=== PATIENT | male | born 1980 | race American Indian/Alaskan Native ===

== ENCOUNTER 2017-06-08 07:42 | Inpatient (IN) | payer BC ==
[2017-06-08] MEDS ORDERED: Sodium Chloride 0.9% 1,000 ML IV SCH (08:15)
--- NOTE | 2017-06-08 08:17 | ED PDOC ---
Arrival/HPI - General Chief Complaint: Abdominal Pain Time Seen by Provider: 06/08/17 07:44 Historian: Patient - History of Present Illness Narrative History of Present Illness (Text): 06/08/17 08:14 A 36 year old male, who denies any significant past medical history, presents to the emergency department for left lower quadrant pain that began 4 weeks ago. The patient reports that he has been seen earlier this month at [facility] for the same pain, where they preformed a CT and diagnosed him with diverticulitis. The patient states his antibiotics only "aggravate" his pain even more. The patient visited [place] emergency department 4 days ago and yesterday, where they did not preform a repeat CT. The patient denies any dysruia, testicular swelling, bloody stools, fever, chest pain, or any other complaints at this time. Time/Duration: > week (4 weeks ) Symptom Onset: Gradual Symptom Course: Unchanged Severity Level: Mild Activities at Onset: Light Context: Home, Work Past Medical History - Provider Review Nursing Documentation Reviewed: Yes - Tetanus Immunization Tetanus Immunization: Unknown - Cardiac Hx Cardiac Disorders: No - Pulmonary Hx Respiratory Disorders: No - Neurological Hx Neurological Disorder: No - HEENT Hx HEENT Disorder: No - Renal Hx Renal Disorder: No - Endocrine/Metabolic Hx Endocrine Disorders: No - Hematological/Oncological Hx Blood Disorders: No - Integumentary Hx Dermatological Disorder: No - Musculoskeletal/Rheumatological Hx Musculoskeletal Disorders: No - Gastrointestinal Hx Diverticulitis: Yes - Genitourinary/Gynecological Hx Genitourinary Disorders: No - Psychiatric Hx Psychophysiologic Disorder: No Hx Substance Use: No Family/Social History - Physician Review Nursing Documentation Reviewed: Yes Family/Social History: No Known Family HX Smoking Status: Light Smoker < 10 Cigarettes Daily Hx Alcohol Use: No Hx Substance Use: No Allergies/Home Meds Allergies/Adverse Reactions: Allergies No Known Allergies Allergy (Verified 06/08/17 16:51) Review of Systems - Review of Systems Constitutional: absent: Fatigue, Fevers Respiratory: absent: SOB Cardiovascular: absent: Chest Pain Gastrointestinal: Abdominal Pain (left lower quadrant pain ). absent: Hematochezia, Hematemesis Genitourinary Male: absent: Dysuria, Hematuria Musculoskeletal: absent: Back Pain Skin: absent: Rash Neurological: absent: Headache, Dizziness Endocrine: absent: Polyuria Hemo/Lymphatic: absent: Easy Bleeding Psychiatric: absent: Suicidal Ideation Physical Exam - Physical Exam Narrative Physical Exam (Text): 06/08/17 08:10 Head: Atraumatic. Normocephalic. Eyes: PERRL. EOMI. Conjunctivae are not pale. ENT: Mucous membranes are moist and intact. Oropharynx is clear and symmetric. Neck: Supple. Full ROM. No JVD. No lymphadenopathy. Cardiovascular: Regular rate. Regular rhythm. No murmurs, rubs, or gallops. Distal pulses are 2+ and symmetric. Pulmonary/Chest: No evidence of respiratory distress. Clear to auscultation bilaterally. No wheezing, rales or rhonchi. Abdominal: Focal left lower quadrant pain. Soft and non-distended. No rebound , guarding, or rigidity. No organomegaly. Good bowel sounds. Back: No CVA tenderness. Rectal: no gross bleeding Extremities: No edema. No cyanosis. No clubbing. Full range of motion in all extremities. No calf tenderness. Skin: Skin is warm and dry. No petechiae. No purpura. Neurological: Alert, awake, and oriented to person, place, time, and situation. Normal speech. Psychiatric: Good eye contact. Normal interaction, affect, and behavior. Vital Signs Reviewed: Yes Vital Signs Temp Pulse Resp BP Pulse Ox 06/08/17 13:00 70 17 125/78 100 06/08/17 11:20 68 18 130/84 99 06/08/17 09:25 75 18 126/82 97 06/08/17 07:57 99.2 F 77 18 128/73 96 Temperature: Afebrile Blood Pressure: Normal Pulse: Regular Respiratory Rate: Normal Appearance: Positive for: Well-Appearing, Non-Toxic, Comfortable Pain Distress: None Mental Status: Positive for: Alert and Oriented X 3 Medical Decision Making ED Course and Treatment: 06/08/17 08:17 Impression: A 36 year old male with left lower abdominal pain. Differential Diagnosis included but are not limited to: Diverticulitis vs abscess vs. colitis Plan: -- Abd & Pel CT -- Labs -- IV Fluids -- Reassess and disposition Progress Notes: Patient with persistent pain with recent diagnosis of diverticulitis at outside facility. 06/08/2017 10:22 Abd/Pelvis CT IMPRESSION: Findings consistent with sigmoid acute diverticulitis. Extraluminal small droplet of air and small amount of fluid seen adjacent to the sigmoid associated with moderate inflammatory changes and mesenteric stranding. No evidence of discrete abscess formation in this exam. Descending colon and sigmoid diverticulosis. Mild hepatomegaly with findings suggestive of mild to moderate hepatic steatosis. Well defined low-attenuation lesion at the midpole right kidney measures fluid density may represent renal cyst. Dictator: Olman Lowry MD Patient on re-evaluation with persistent pain, no rebound or guarding however, not toxic appearing or septic. Due to failure of outpatient treatment, patient ordered iv antibiotics, admitted for further evaluation. - Lab Interpretations Lab Results: 06/08/17 08:30 06/08/17 08:30 Lab Results 06/08/17 08:30: Sodium 141, Potassium 3.6, Chloride 106, Carbon Dioxide 28, Anion Gap 11, BUN 11, Creatinine 1.0, Est GFR ( Amer) > 60, Est GFR (Non- Af Amer) > 60, Random Glucose 99, Calcium 8.5, Total Bilirubin 0.4, AST 26, ALT 31, Alkaline Phosphatase 49, Total Protein 6.7, Albumin 3.6, Globulin 3.1, Albumin/Globulin Ratio 1.1 06/08/17 08:30: WBC 4.4 L, RBC 5.12, Hgb 14.1, Hct 42.7, MCV 83.4, MCH 27.5, MCHC 33.0, RDW 14.1, Plt Count 253, MPV 9.5, Gran % 65.3, Lymph % (Auto) 24.7, [place] % (Auto) 8.4 H, Eos % (Auto) 1.4 L, Baso % (Auto) 0.2, Gran # 2.86, Lymph # 1.1 L, [place] # 0.4, Eos # 0.1, Baso # 0.01 - RAD Interpretation Radiology Orders: 06/08/17 08:10 ABD & PELVIS IV CONTRAST ONLY [CT] Stat - Medication Orders Current Medication Orders: Discontinued Medications Acetaminophen (Tylenol 325mg Tab) 650 mg PO Q4H PRN PRN Reason: Pain, moderate (4-7) Sodium Chloride (Sodium Chloride 0.9%) 1,000 mls @ 100 mls/hr IV .Q10H HELENA Last Admin: 06/08/17 08:35 Dose: 100 mls/hr eMAR Start Stop Document 06/08/17 08:35 MS (Rec: 06/08/17 09:00 MS [id number]) Intravenous Solution Start Date 06/08/17 Start Time 08:35 End Date 06/08/17 Metronidazole (Flagyl) 500 mg in 100 mls @ 100 mls/hr IVPB STAT STA PRN Reason: Protocol Stop: 06/08/17 12:32 Last Admin: 06/08/17 14:55 Dose: 100 mls/hr eMAR Start Stop Document 06/08/17 14:55 SF (Rec: 06/08/17 15:06 SF [id number]) Intravenous Solution Start Date 06/08/17 Start Time 14:55 End Date 06/08/17 End time 15:55 Total Infusion Time 60 Ceftriaxone Sodium (Rocephin 1 Gram Ivpb) 1 gm in 100 mls @ 200 mls/hr IVPB ONCE STA PRN Reason: Protocol Stop: 06/08/17 12:04 Last Admin: 06/08/17 13:45 Dose: 200 mls/hr eMAR Start Stop Document 06/08/17 13:45 SF (Rec: 06/08/17 15:05 SF [id number]) Intravenous Solution Start Date 06/08/17 Start Time 13:45 End Date 06/08/17 End time 14:15 Total Infusion Time 30 Sodium Chloride (Sodium Chloride 0.45%) 1,000 mls @ 60 mls/hr IV .[id number] HELENA Last Admin: 06/08/17 14:25 Dose: 60 mls/hr eMAR Start Stop Document 06/08/17 14:25 SF (Rec: 06/08/17 15:04 SF [id number]) Intravenous Solution Start Date 06/08/17 Start Time 14:25 End Date 06/08/17 Piperacillin Sod/Tazobactam Sod (Zosyn 3.375 In Ns 100ml) 100 mls @ 200 mls/hr IVPB Q6 HELENA PRN Reason: Protocol Stop: 06/17/17 13:50 Last Admin: 06/10/17 06:41 Dose: 200 mls/hr eMAR Start Stop Document 06/10/17 06:41 BR (Rec: 06/10/17 06:42 BR [id number]) Intravenous Solution Start Date 06/10/17 Start Time 06:41 End Date 06/10/17 End time 07:11 Total Infusion Time 30 Ketorolac Tromethamine (Toradol) 30 mg IVP Q6H PRN PRN Reason: Pain, moderate (4-7) Last Admin: 06/08/17 16:46 Dose: 30 mg [facility] Pain Assessment Document 06/08/17 16:46 EP (Rec: 06/08/17 16:46 EP [id number]) Pain Reassessment Is this a pain reassessment? No Sleep Is patient sleeping during reassessment? No Presence of Pain Presence of Pain Yes Pain Scale Used Pain Scale Used Numeric Location Pain Location Body Site Abdomen Description Description Intermittent Intensity of Pain at present 4 Pain Behavior Restlessness Aggravating Factors ADL's IVP Administration Document 06/08/17 16:46 EP (Rec: 06/08/17 16:46 EP [id number]) Charges for Administration # of IVP Administrations 1 Re-Assess: MALCOM Pain Assessment Document 06/08/17 17:46 EP (Rec: 06/08/17 18:45 EP [id number]) Pain Reassessment Is this a pain reassessment? Yes Sleep Is patient sleeping during reassessment? No Presence of Pain Presence of Pain No Pneumococcal Polyvalent Vaccine (Pneumovax 23 Vaccine) 0.5 ml IM .ONCE ONE Stop: 06/08/17 17:26 Polyethylene Glycol (Miralax) 17 gm PO BID HELENA Last Admin: 06/09/17 12:56 Dose: 17 gm - Scribe Statement The provider has reviewed the documentation as recorded by the Olayinka Garcia Provider Scribe Attestation: All medical record entries made by the Olayinka were at my direction and personally dictated by me. I have reviewed the chart and agree that the record accurately reflects my personal performance of the history, physical exam, medical decision making, and the department course for this patient. I have also personally directed, reviewed, and agree with the discharge instructions and disposition. Disposition/Present on Arrival - Present on Arrival Any Indicators Present on Arrival: No History of DVT/PE: No History of Uncontrolled Diabetes: No Urinary Catheter: No History of Decub. Ulcer: No History Surgical Site Infection Following: None - Disposition Have Diagnosis and Disposition been Completed?: Yes Diagnosis: Diverticulitis Disposition: HOSPITALIZED Disposition Time: 11:30 Patient Plan: Admission Condition: FAIR
[2017-06-08 08:41] LABS: BASO # 0.01 K/mm3 (0.0-2.0); BASO % 0.2 % (0.0-3.0); EOS # 0.1 (0.0-0.7); EOS % 1.4 % (1.5-5.0); GRAN # 2.86 (1.4-6.5); GRAN % 65.3 % (50.0-68.0); HEMATOCRIT 42.7 % (42.0-52.0); LYMPH # 1.1 (1.2-3.4); LYMPH % 24.7 % (22.0-35.0); MEAN CELL VOLUME 83.4 fl (80.0-105.0); MEAN CORPUSCULAR HEMOGLOBIN 27.5 pg (25.0-35.0); MEAN PLATELET VOLUME 9.5 fl (7.0-11.0); MONO # 0.4 (0.1-0.6); MONO % 8.4 % (1.0-6.0); RED CELL DISTRIBUTION WIDTH 14.1 % (11.5-14.5); WHITE BLOOD COUNT 4.4 10^3/ul (4.5-11.0)
[2017-06-08 08:51] LABS: ALB/GLOB RATIO 1.1 (1.1-1.8); ALKALINE PHOSPHATASE 49 U/L (38-126); ALT/SGPT 31 U/L (7-56); AST/SGOT 26 U/L (17-59); BILIRUBIN,TOTAL 0.4 mg/dL (0.2-1.3); BLOOD UREA NITROGEN 11 mg/dL (7-21); CALCIUM 8.5 mg/dL (8.4-10.5); CARBON DIOXIDE 28 mmol/L (21-33); CHLORIDE 106 mmol/L (98-107); GFR AFRICAN-AMERICAN > 60; GLUCOSE,RANDOM 99 mg/dL (70-110); POTASSIUM 3.6 mmol/L (3.6-5.0); SODIUM 141 mmol/L (132-148); TOTAL PROTEIN 6.7 g/dL (5.8-8.3)
--- NOTE | 2017-06-08 10:24 | CT ---
PROCEDURE: CT Abdomen and Pelvis with contrast HISTORY: llq hx of diverticulitis COMPARISON: None. TECHNIQUE: Contrast dose: 150 mL Omnipaque 350. Axial and reformatted coronal and sagittal CT images of the abdomen and pelvis were obtained after IV contrast administration. Radiation dose: Total exam DLP = 1253.74 mGy-cm. This CT exam was performed using one or more of the following dose reduction techniques: Automated exposure control, adjustment of the mA and/or kV according to patient size, and/or use of iterative reconstruction technique. FINDINGS: LOWER THORAX: No evidence of acute pathology at the lung bases. LIVER: Heterogeneous enhancement of the liver which demonstrate mild patchy decreased attenuation suggestive but nonspecific for hepatic steatosis. The liver is mildly enlarged. The portal vein is patent. GALLBLADDER AND BILE DUCTS: Unremarkable. PANCREAS: Unremarkable. No gross lesion or ductal dilatation. SPLEEN: Unremarkable. ADRENALS: Unremarkable. No mass. KIDNEYS AND URETERS: The kidneys enhance symmetrically without evidence of hydronephrosis. There is with defined low-attenuation lesion at the midpole right kidney measures 1.9 centimeter in the transverse diameter and measures fluid density( 17 Hounsfield unit) VASCULATURE: Unremarkable. No aortic aneurysm. BOWEL: There is diffuse sigmoid colon wall thickening. There are scattered sigmoid and distal descending colon diverticulosis. There are inflammatory changes and extraluminal fluid and small punctate of air adjacent to the sigmoid colon in the left pelvis consistent with acute diverticulitis. No discrete abscess formation noted. There are adjacent inflammatory changes and fat stranding in the left lower abdomen and left pelvis. There is no evidence of bowel obstruction. APPENDIX: Normal appendix. PERITONEUM: Unremarkable. No free fluid. No free air. LYMPH NODES: Unremarkable. No enlarged lymph nodes. BLADDER: Unremarkable. REPRODUCTIVE: Unremarkable. BONES: No acute fracture. OTHER FINDINGS: None. IMPRESSION: Findings consistent with sigmoid acute diverticulitis. Extraluminal small droplet of air and small amount of fluid seen adjacent to the sigmoid associated with moderate inflammatory changes and mesenteric stranding. No evidence of discrete abscess formation in this exam. Descending colon and sigmoid diverticulosis. Mild hepatomegaly with findings suggestive of mild to moderate hepatic steatosis. Well defined low-attenuation lesion at the midpole right kidney measures fluid density may represent renal cyst.
[2017-06-08] MEDS ORDERED: cefTRIAXone 1 gm 100 ML IVPB STA (11:33)
[2017-06-08] MEDS ORDERED: metroNIDAZOLE IV 500 mg/100 ml 500 MG/100 ML BAG IVPB STA (11:33)
[2017-06-08] MEDS ORDERED: cefTRIAXone 1 gm 1 GM/100 ML BAG IVPB STA (11:35)
[2017-06-08] MEDS ORDERED: Sodium Chloride 0.45% 1,000 ML IV SCH (12:00)
[2017-06-08] MEDS ORDERED: metroNIDAZOLE IV 500 mg/100 ml 500 MG/100 ML BAG IVPB SCH (14:00)
[2017-06-08 15:25] LABS: URINE APPEARANCE CLEAR (CLEAR); URINE BILIRUBIN NEGATIVE (NEGATIVE); URINE BLOOD TRACE-INTACT (NEGATIVE); URINE COLOR YELLOW (YELLOW); URINE GLUCOSE (UA) NEGATIVE (NEGATIVE); URINE KETONE NEGATIVE (NEGATIVE); URINE LEUKOCYTE ESTERASE NEGATIVE Leu/uL (NEGATIVE); URINE PROTEIN NEGATIVE mg/dL (<30 mg/dL); URINE UROBILINOGEN 0.2 E.U./dL (<1 E.U./dL)
[2017-06-08 16:05] LABS: URINE AMORPHOUS SEDIMENT FEW; URINE BACTERIA LARGE (NEG); URINE WBC 0 - 2 /hpf (0-6)
[2017-06-08] MEDS: Piperacillin/Tazobact 3.375 gm 100 ML IVPB SCH ×2 (16:36→17:37)
--- NOTE | 2017-06-08 16:52 | CP.PCM.CON ---
<Dean Carreno - Last Filed: 06/08/17 16:55> History of Present Illness - History of Present Illness History of Present Illness: Initial GI Consult Samson Faust is a 36M w/ hx of chronic constipation who presents to the ER with complaints of LLQ pain. Pt states that the onset was 4 weeks ago. He initially went to [facility] and was diagnosed with diverticulitis and discharged on ciprofloxacin and Flagyl. A CT of the abdomen confirmed the diagnosis. He notes mild improvement in symptoms, but denied any resolution. He again went to [facility] 5 days ago with similar complaints. He was again was given a 2 week course of cipro and flagyl. He notes abd discomfort with the abx and stopped taking them. For the past 1 week, his constipation worsened and he then took dulcolax. He started to experience chills and diaphoresis for the past 3 days. He currently notes that his pain is around a 1 out of 10 and has intermittent radiation to his left groin. He denies any BRBPR, melena, nausea or vomiting. Denies any GERD like symptoms. A CT scan of the abd in the ER revealed acute uncomplicated diverticulitis of the sigmoid. He was started on zosyn by by ID. PMHx: None PSHx: None Social Hx: Denies smoking, +social drinker, denies any illicit drugs Family hx: denies colon cancer Endo hx: none ROS: 12 point ROS conducted, neg other than above Past Patient History - Tetanus Immunizations Tetanus Immunization: Unknown - Past Social History Smoking Status: Light Smoker < 10 Cigarettes Daily - CARDIAC Hx Cardiac Disorders: No - PULMONARY Hx Respiratory Disorders: No - NEUROLOGICAL Hx Neurological Disorder: No - HEENT Hx HEENT Problems: No - RENAL Hx Chronic Kidney Disease: No - ENDOCRINE/METABOLIC Hx Endocrine Disorders: No - HEMATOLOGICAL/ONCOLOGICAL Hx Blood Disorders: No - INTEGUMENTARY Hx Dermatological Problems: No - MUSCULOSKELETAL/RHEUMATOLOGICAL Hx Musculoskeletal Disorders: No - GASTROINTESTINAL Hx Diverticulitis: Yes - GENITOURINARY/GYNECOLOGICAL Hx Genitourinary Disorders: No - PSYCHIATRIC Hx Psychophysiologic Disorder: No Hx Substance Use: No - SURGICAL HISTORY Hx Surgeries: No Meds Allergies/Adverse Reactions: Allergies Allergy/AdvReac Type Severity Reaction Status Date / Time No Known Allergies Allergy Verified 06/08/17 16:51 - Medications Medications: Current Medications Sodium Chloride (Sodium Chloride 0.45%) 1,000 mls @ 60 mls/hr IV .[id number] [facility] Last Admin: 06/08/17 14:25 Dose: 60 mls/hr Piperacillin Sod/Tazobactam Sod (Zosyn 3.375 In Ns 100ml) 100 mls @ 200 mls/hr IVPB Q6 HELENA PRN Reason: Protocol Stop: 06/17/17 13:50 Last Admin: 06/08/17 16:36 Dose: Not Given Ketorolac Tromethamine (Toradol) 30 mg IVP Q6H PRN PRN Reason: Pain, moderate (4-7) Physical Exam - Constitutional Appears: No Acute Distress - Head Exam Head Exam: ATRAUMATIC, NORMOCEPHALIC - Eye Exam Eye Exam: Normal appearance - ENT Exam ENT Exam: Mucous Membranes Moist - Neck Exam Neck exam: Positive for: Normal Inspection - Respiratory Exam Respiratory Exam: Clear to Auscultation Bilateral, NORMAL BREATHING PATTERN. absent: Rales, Rhonchi, Wheezes, Respiratory Distress - Cardiovascular Exam Cardiovascular Exam: REGULAR RHYTHM, +S1, +S2 - GI/Abdominal Exam GI & Abdominal Exam: Normal Bowel Sounds, Soft, Tenderness. absent: Firm, Guarding, Pulsatile Mass, Rebound, Rigid Additional comments: tenderness in the LLQ - Extremities Exam Extremities exam: Negative for: joint swelling, pedal edema - Neurological Exam Neurological exam: Alert, Oriented x3 - Psychiatric Exam Psychiatric exam: Normal Affect, Normal Mood - Skin Skin Exam: Dry, Intact, Normal Color, Warm Results - Vital Signs Recent Vital Signs: Last Vital Signs Temp 99.2 F 06/08/17 07:57 Pulse 71 06/08/17 15:16 Resp 18 06/08/17 15:16 BP 133/89 06/08/17 15:16 Pulse Ox 99 06/08/17 15:16 - Labs Result Diagrams: 06/08/17 08:30 06/08/17 08:30 Labs: Laboratory Results - last 24 hr 06/08/17 15:10 Urine Color Yellow Urine Appearance Clear Urine pH 6.0 Ur Specific [place] 1.025 Urine Protein Negative Urine Glucose (UA) Negative Urine Ketones Negative Urine Blood Trace-intact H Urine Nitrate Negative Urine Bilirubin Negative Urine Urobilinogen 0.2 Ur Leukocyte Esterase Negative Urine RBC 1 - 3 Urine WBC 0 - 2 Ur Epithelial Cells None Amorphous Sediment Few Urine Bacteria Large Assessment & Plan - Assessment and Plan (Free Text) Assessment: Samson Faust is a 36M w/ no sig medical hx who presents with LLQ. Etiology is likely 2/2 Acute sigmoid diverticulitis 1. Uncomplicated Sigmoid Diverticulitis 2. Chronic constipation Plan: -continue abx as per ID -recommend a 2 week PO abx outpt course upon discharge -recommend a colonoscopy 8 weeks post symptoms -pt wishes to follow-up with Dr. Akins, recommend outpt followup in 2 weeks -started on liquid diet, can advance as tolerted to goal of low residue diet -if still complaining of constipation, can start miralax -recommend increasing fiber intake at home, post diverticulitis flare -can supplement with benefiber -if constipation persist, can start miralax at home daily to TID for 1-2 BM daily D/W Dr. Akins <Edmar Akins - Last Filed: 06/08/17 20:47> Meds - Medications Medications: Current Medications Acetaminophen (Tylenol 325mg Tab) 650 mg PO Q4H PRN PRN Reason: Pain, moderate (4-7) Sodium Chloride (Sodium Chloride 0.45%) 1,000 mls @ 60 mls/hr IV .[id number] HELENA Last Admin: 06/08/17 14:25 Dose: 60 mls/hr Piperacillin Sod/Tazobactam Sod (Zosyn 3.375 In Ns 100ml) 100 mls @ 200 mls/hr IVPB Q6 HELENA PRN Reason: Protocol Stop: 06/17/17 13:50 Last Admin: 06/08/17 17:37 Dose: 200 mls/hr Ketorolac Tromethamine (Toradol) 30 mg IVP Q6H PRN PRN Reason: Pain, moderate (4-7) Last Admin: 06/08/17 16:46 Dose: 30 mg Results - Vital Signs Recent Vital Signs: Last Vital Signs Temp 99.2 F 06/08/17 16:51 Pulse 71 06/08/17 16:51 Resp 18 06/08/17 16:51 BP 133/89 06/08/17 16:51 Pulse Ox 99 06/08/17 15:16 - Labs Result Diagrams: 06/08/17 08:30 06/08/17 08:30 Labs: Laboratory Results - last 24 hr 06/08/17 15:10 Urine Color Yellow Urine Appearance Clear Urine pH 6.0 Ur Specific [place] 1.025 Urine Protein Negative Urine Glucose (UA) Negative Urine Ketones Negative Urine Blood Trace-intact H Urine Nitrate Negative Urine Bilirubin Negative Urine Urobilinogen 0.2 Ur Leukocyte Esterase Negative Urine RBC 1 - 3 Urine WBC 0 - 2 Ur Epithelial Cells None Amorphous Sediment Few Urine Bacteria Large Attending/Attestation - Attestation I have personally seen and examined this patient.: Yes I have fully participated in the care of the patient.: Yes I have reviewed all pertinent clinical information: Yes Notes (Text): 06/08/17 20:46 36 year old male who presents with 1 month history of LLQ pain found to have acute sigmoid diverticulitis. 1. Acute diverticulitis Plan: -recommend IV antibiotics as above -advance diet as tolerated -recommend outpatient colonoscopy in 6-8 weeks after symptoms resolve -if no improvement or complications develop, he may need surgical evaluation
[2017-06-08 17:25] VITALS: BMI 34.4
[2017-06-08] MEDS ORDERED: Influenza Vaccine 60 mcg/0.5 mL SYR (4YR UP) IM ONE (17:25)
[2017-06-08] MEDS ORDERED: Pneumococcal 23-Valent Vaccine IM ONE (17:25)
--- NOTE | 2017-06-08 23:38 | HP ---
HISTORY OF PRESENT ILLNESS: I was called on to the emergency room on this nice 36-year-old man who has a history of being just treated at the [facility] where he had diverticulitis, who was given antibiotics, he was sent home on the outpatient with p.o. antibiotics, he did that twice. He comes in today with severe abdominal pain after failed outpatient oral antibiotics, very uncomfortable in his abdomen and he is here probably with the same things what the CAT scan says. PAST MEDICAL HISTORY: Diverticulitis and abdominal pain. PAST SURGICAL HISTORY: No known operations. FAMILY HISTORY: No family history. SOCIAL HISTORY: Light smoker. No alcohol. No drug. ALLERGIES: NO KNOWN DRUG ALLERGIES. MEDICATIONS: He was taking antibiotics previously, Cipro and Flagyl, if not mistaken. REVIEW OF SYSTEMS: No acute vision changes. No hearing changes. No sore throat. No neck pain. No chest pain or palpitation. No shortness of breath or cough. Only he is having abdominal pain, left lower quadrant, it is severe when he poke on it. No extremity pain. No nausea or vomiting with it. Just cannot eat well and some diarrhea. Also, he moves all 4 extremities, no skin issues, . PHYSICAL EXAMINATION: VITAL SIGNS: He has a 99.2 temperature, 77 pulse, 18 respiratory rate, 120/73 blood pressure, 96% O2 saturation on room air. HEENT: Head is atraumatic and normocephalic. Extraocular muscles are intact. Pupils are equally reactive to light and accommodation. Throat is moist. NECK: Supple. HEART: Regular rate. Normal S1 and S2. LUNGS: Decreased breath sounds. Clear to auscultation bilaterally. ABDOMEN: He has focal left lower quadrant pain. Soft everywhere else, mild discomfort. No guarding. No rebound. EXTREMITIES: No edema. SKIN: Warm and dry. NEUROLOGIC: Alert and oriented x3. No anxiety or depression I could see. He is comfortable. LYMPHATICS: Thyroid is midline. No palpable appreciable lymphadenopathy. LABORATORY DATA: Blood test, 4.4 white count, 14.1 hemoglobin, 42.7 hematocrit with platelets. Sodium 141, potassium 3.6, BUN 11, creatinine 1, GFR is greater than 60, sugar 99, calcium is 8.5, total bilirubin is 0.48, AST is 26, ALT is 31, alkaline phosphatase 49, total protein 6.7, albumin 3.6, globulin 3.1. He had a CAT scan of the abdomen and pelvis, which showed findings consistent with sigmoid acute diverticulitis, extraluminal small droplet of air and small amount of fluid seen adjacent to the sigmoid associated with moderate inflammation changes in its mesenteric stranding. No evidence of discrete abscess formation. Descending colon sigmoid diverticulosis, mild hepatomegaly with findings suggestive of [id number] hepatosteatosis, possible cyst in the right kidney. He is going to have a consult with Infectious Disease. This is the third or fourth time being treated for this, also GI evaluation, he will be n.p.o. He will have IV Rocephin, IV metronidazole, he will have Toradol for pain, IV fluids. We will check his labs tomorrow, hopefully he will improve. Fabio Shea DO [email or web address]
[2017-06-09] MEDS: Piperacillin/Tazobact 3.375 gm 100 ML IVPB SCH ×4 (00:58→18:24)
--- NOTE | 2017-06-09 01:41 | CON ---
DATE: 06/08/2017 The patient seen in the emergency room. CHIEF COMPLAINT: Left lower quadrant pain times several days. HISTORY OF PRESENT ILLNESS: This is a 36-year-old male who was seen recently at [facility] for abdominal pain and was given a diagnosis of acute diverticulitis, was discharged on p.o. Cipro and p.o. Flagyl. The patient states that he took the medications, but his pain is persistently present and has been worse and now he is here. REVIEW OF SYSTEMS: He is having low grade fevers. He is having chills and left lower quadrant pain. There is no nausea, no vomiting and no diarrhea or constipation. PAST MEDICAL HISTORY: Noncontributory. PAST SURGICAL HISTORY: He states he has never had any surgery. SOCIAL HISTORY: He lives with the mother of his child. As per the patient, he has no recent travel. He is a smoker. He has been smoking since he was 16 years old. No alcohol use and no recent travel. No exposure to tuberculosis. MEDICATION OUTPATIENT: Include Cipro and Flagyl. ALLERGIES: HE HAS NO KNOWN ALLERGIES. PHYSICAL EXAMINATION: GENERAL: On exam, he is in pain. VITAL SIGNS: He is in bed in the emergency room with moderate pain with a temperature of 99.2, heart rate of 75, respiratory rate of 18, blood pressure is 120/70. HEENT: Unremarkable. NECK: Supple. LUNGS: Have decreased breath sounds. HEART: Normal S1, S2. ABDOMEN: Tender in his left lower quadrant. No rebound or guarding. LABORATORY EXAMINATION: Reveals a white count of 4.4, hemoglobin of 14, platelets of 253. The patient has 65% granulocytosis and BUN of 11, creatinine of 1.0. Microbiology is pending. The patient had a CAT scan, which showed an acute sigmoid diverticulitis. ASSESSMENT AND PLAN: He is a 36-year-old male with acute sigmoid diverticulitis, failed as an outpatient, on Cipro and Flagyl. We will treat the patient with Zosyn pending blood cultures and urine cultures and we will review the CAT scan in detail. We will order an HIV because of his age and he also does have leukopenia, etiology of which is not clear. We will follow closely with you. Gerardo Morin MD [facility] # [id number]
[2017-06-09 07:35] LABS: HEMATOCRIT 42.2 % (42.0-52.0); MEAN CELL VOLUME 83.1 fl (80.0-105.0); MEAN CORPUSCULAR HEMOGLOBIN 26.8 pg (25.0-35.0); MEAN CORPUSCULAR HGB CONC 32.2 g/dl (31.0-37.0); MEAN PLATELET VOLUME 9.6 fl (7.0-11.0); RED CELL DISTRIBUTION WIDTH 14.2 % (11.5-14.5); WHITE BLOOD COUNT 3.2 10^3/ul (4.5-11.0)
[2017-06-09 08:27] LABS: ALB/GLOB RATIO 1.1 (1.1-1.8); ALKALINE PHOSPHATASE 46 U/L (38-126); ALT/SGPT 35 U/L (7-56); AST/SGOT 21 U/L (17-59); BILIRUBIN,TOTAL 0.4 mg/dL (0.2-1.3); BLOOD UREA NITROGEN 8 mg/dL (7-21); CALCIUM 8.7 mg/dL (8.4-10.5); CARBON DIOXIDE 28 mmol/L (21-33); CHLORIDE 106 mmol/L (98-107); GFR AFRICAN-AMERICAN > 60; GLUCOSE,RANDOM 93 mg/dL (70-110); POTASSIUM 3.6 mmol/L (3.6-5.0); SODIUM 142 mmol/L (132-148); TOTAL PROTEIN 6.4 g/dL (5.8-8.3)
[2017-06-09 08:34] VITALS: RESP 20; O2SAT 98
[2017-06-09] MEDS ORDERED: cefTRIAXone 1 gm 1 GM/100 ML BAG IVPB SCH (10:00)
--- NOTE | 2017-06-09 10:24 | CP.PCM.PN ---
<Dean Carreno - Last Filed: 06/09/17 10:25> Subjective - Date & Time of Evaluation Date of Evaluation: 06/09/17 Time of Evaluation: 08:00 - Subjective Subjective: PGY 4 GI Follow-up Pt seen and examined bedside No complaints Denies any abd pain tolerating diet small Bm in the AM with blood or melena ROS: 10 point ROS conducted,neg other than above Objective - Vital Signs/Intake and Output Vital Signs (last 24 hours): Temp Pulse Resp BP Pulse Ox 97.9 F 57 L 20 126/79 98 06/09/17 07:30 06/09/17 07:30 06/09/17 07:30 06/09/17 07:30 06/09/17 07:30 Intake and Output: 06/09/17 06/09/17 06:59 18:59 Intake Total 840 Balance 840 - Medications Medications: Current Medications Acetaminophen (Tylenol 325mg Tab) 650 mg PO Q4H PRN PRN Reason: Pain, moderate (4-7) Sodium Chloride (Sodium Chloride 0.45%) 1,000 mls @ 60 mls/hr IV .[id number] HELENA Last Admin: 06/08/17 14:25 Dose: 60 mls/hr Piperacillin Sod/Tazobactam Sod (Zosyn 3.375 In Ns 100ml) 100 mls @ 200 mls/hr IVPB Q6 HELENA PRN Reason: Protocol Stop: 06/17/17 13:50 Last Admin: 06/09/17 06:13 Dose: 200 mls/hr Ketorolac Tromethamine (Toradol) 30 mg IVP Q6H PRN PRN Reason: Pain, moderate (4-7) Last Admin: 06/08/17 16:46 Dose: 30 mg - Labs Labs: 06/09/17 06:45 06/09/17 06:45 - Constitutional Appears: Well, No Acute Distress - Head Exam Head Exam: ATRAUMATIC, NORMOCEPHALIC - Eye Exam Eye Exam: Normal appearance - ENT Exam ENT Exam: Mucous Membranes Moist - Respiratory Exam Respiratory Exam: Clear to Ausculation Bilateral, NORMAL BREATHING PATTERN. absent: Rales, Rhonchi, Wheezes, Respiratory Distress - GI/Abdominal Exam GI & Abdominal Exam: Soft, Normal Bowel Sounds. absent: Guarding, Rigid, Tenderness - Extremities Exam Extremities Exam: absent: Joint Swelling, Pedal Edema - Neurological Exam Neurological Exam: Alert, Awake, Oriented x3 - Psychiatric Exam Psychiatric exam: Normal Affect, Normal Mood - Skin Skin Exam: Dry, Intact, Normal Color, Warm Assessment and Plan - Assessment and Plan (Free Text) Assessment: Samson Faust is a 36M w/ no sig medical hx who presents with LLQ. Etiology is likely 2/2 Acute sigmoid diverticulitis 1. Uncomplicated Sigmoid Diverticulitis 2. Chronic constipation Plan: -continue abx as per ID -recommend a 2 week PO abx outpt course upon discharge -recommend a colonoscopy 8 weeks post symptoms -pt wishes to follow-up with Dr. Hernandez, recommend outpt followup in 2 weeks -advance as tolerted to goal of low residue diet -if still complaining of constipation, can start miralax and senna at bedtime -recommend increasing fiber intake at home, post diverticulitis flare -can supplement with benefiber -if constipation persist, can start miralax at home daily to TID for 1-2 BM daily D/W Dr. Larose <Thuan MIRELES,[facility] - Last Filed: 06/09/17 15:30> Objective - Vital Signs/Intake and Output Vital Signs (last 24 hours): Temp Pulse Resp BP Pulse Ox 97.9 F 57 L 20 126/79 98 06/09/17 07:30 06/09/17 07:30 06/09/17 07:30 06/09/17 07:30 06/09/17 07:30 Intake and Output: 06/09/17 06/09/17 06:59 18:59 Intake Total 840 Balance 840 - Medications Medications: Current Medications Acetaminophen (Tylenol 325mg Tab) 650 mg PO Q4H PRN PRN Reason: Pain, moderate (4-7) Sodium Chloride (Sodium Chloride 0.45%) 1,000 mls @ 60 mls/hr IV .[id number] [facility] Last Admin: 06/08/17 14:25 Dose: 60 mls/hr Piperacillin Sod/Tazobactam Sod (Zosyn 3.375 In Ns 100ml) 100 mls @ 200 mls/hr IVPB Q6 HELENA PRN Reason: Protocol Stop: 06/17/17 13:50 Last Admin: 06/09/17 12:38 Dose: 200 mls/hr Ketorolac Tromethamine (Toradol) 30 mg IVP Q6H PRN PRN Reason: Pain, moderate (4-7) Last Admin: 06/08/17 16:46 Dose: 30 mg Polyethylene Glycol (Miralax) 17 gm PO BID HELENA Last Admin: 06/09/17 12:56 Dose: 17 gm - Labs Labs: 06/09/17 06:45 06/09/17 06:45 Attending/Attestation - Attestation I have personally seen and examined this patient.: Yes I have fully participated in the care of the patient.: Yes I have reviewed all pertinent clinical information, including history, physical exam and plan: Yes Notes (Text): 06/09/17 15:29 Patient seen at bedside this am. This is a 36 year old male who presents with 1 month history of LLQ pain found to have acute sigmoid diverticulitis without complications. Tolerating full liquid diet. No s/s of abscess or sepsis. Advance diet and complete antibiotics as outpatient for 10 days. Recommend outpatient colonoscopy in 6-[address] hernandez
--- NOTE | 2017-06-09 10:53 | PN ---
DATE: SUBJECTIVE: I saw him resting comfortable in bed. He is still having some abdominal discomfort from time to time with lot of gas and bubbling. No bowel movement. He is on IV fluid, Toradol, Tylenol and Zosyn IV. PHYSICAL EXAMINATION: VITAL SIGNS: 99.2 temperature, 71 pulse, 133/89 blood pressure, 18 respiratory rate, and 97% O2 saturation on room air. HEENT: His head is atraumatic and normocephalic. HEART: Regular rate. LUNGS: Clear to auscultation. ABDOMEN: Mildly distended. He does have bowel sounds. Diffusely discomfortable, but no guarding or rebound. No bowel movements. EXTREMITIES: Have no edema. LABORATORY DATA: He has a 3.2 white count, 13.6 hemoglobin and 42.2 hematocrit with 264 platelets. He has a 141 sodium, potassium is 3.6, BUN is 11, and creatinine 1. GFR is greater than 60, sugar is 99, and calcium is 8.5. Total bilirubin is 0.4, AST is 26, ALT is 31, and alkaline phosphatase is 49. His urine was trace. IMPRESSION AND PLAN: My problem with him is this is his fourth time in one month of having acute diverticulitis. I discussed at length diet, no seeds, no nuts and no popcorn, anything is found digestible, he did not know that and he has been eat nuts and popcorn over the past month. It is possible that is persisting his diverticulitis. He understands that now. He is on IV antibiotics. He is being seen by Infectious Disease and GI. I do not want to have a fifth time of diverticulitis, so, we will continue with aggressive treatment and care on Samson Delaney. Fabio Shea DO
[2017-06-09] MEDS ORDERED: POLYETHYLENE GLYCOL 3350 17 GM/Dose PACKET PO SCH (12:45)
[2017-06-10] MEDS: Piperacillin/Tazobact 3.375 gm 100 ML IVPB SCH ×2 (01:01→06:41)
--- NOTE | 2017-06-10 01:10 | PN ---
DATE: 06/09/2017 SUBJECTIVE: The patient is in bed, in no acute distress, nontoxic. OBJECTIVE: VITAL SIGNS: On exam, temperature is 98, blood pressure is 130/70, respiratory rate of 18. HEENT: Examination of HEENT is unremarkable. NECK: Supple. LUNGS: Decreased breath sounds. HEART: Normal S1 and S2. ABDOMEN: Soft. There is mild tenderness in the left lower quadrant. LABORATORY EXAMINATION: Reveals a white count of 3.2, hemoglobin of 13. Chemistries are normal. Urinalysis is noted. Microbiology reveals the blood, urine cultures are no growth. Review of the orders reveals the patient's HIV is pending, and the patient is currently on Zosyn. ASSESSMENT AND PLAN: A 36-year-old male, recently at [facility] with abdominal pain, given Cipro and Flagyl as outpatient. He is now admitted with abdominal pain, found to have acute sigmoid diverticulitis, on Zosyn, and the patient is clinically improved. As of this morning, the patient was having significant abdominal pain still. We will follow closely on Zosyn. Gerardo Morin MD
[2017-06-10 07:20] LABS: HEMATOCRIT 43.9 % (42.0-52.0); MEAN CELL VOLUME 82.8 fl (80.0-105.0); MEAN CORPUSCULAR HGB CONC 32.6 g/dl (31.0-37.0); MEAN PLATELET VOLUME 9.7 fl (7.0-11.0); WHITE BLOOD COUNT 4.1 10^3/ul (4.5-11.0)
[2017-06-10 08:01] LABS: ALB/GLOB RATIO 1.2 (1.1-1.8); ALKALINE PHOSPHATASE 45 U/L (38-126); ALT/SGPT 34 U/L (7-56); AST/SGOT 19 U/L (17-59); BILIRUBIN,TOTAL 0.4 mg/dL (0.2-1.3); BLOOD UREA NITROGEN 6 mg/dL (7-21); CALCIUM 9.2 mg/dL (8.4-10.5); CARBON DIOXIDE 29 mmol/L (21-33); CHLORIDE 104 mmol/L (98-107); GFR AFRICAN-AMERICAN > 60; GLUCOSE,RANDOM 101 mg/dL (70-110); POTASSIUM 3.6 mmol/L (3.6-5.0); SODIUM 142 mmol/L (132-148); TOTAL PROTEIN 6.8 g/dL (5.8-8.3)
--- NOTE | 2017-06-10 08:01 | CP.PCM.PN ---
<Dean Carreno - Last Filed: 06/10/17 08:03> Subjective - Date & Time of Evaluation Date of Evaluation: 06/10/17 Time of Evaluation: 07:30 - Subjective Subjective: PGY 4 GI Follow-up Pt seen and examined bedside No complaints slight left lower abd pain tolerating diet small Bm in the AM w/o blood, mucus, or melena ROS: 10 point ROS conducted,neg other than above Objective - Vital Signs/Intake and Output Vital Signs (last 24 hours): Temp Pulse Resp BP Pulse Ox 98.8 F 58 L 20 132/92 H 98 06/09/17 17:15 06/09/17 17:15 06/09/17 17:15 06/09/17 17:15 06/09/17 17:15 Intake and Output: 06/10/17 06/10/17 06:59 18:59 Intake Total 1920 Balance 1920 - Medications Medications: Current Medications Acetaminophen (Tylenol 325mg Tab) 650 mg PO Q4H PRN PRN Reason: Pain, moderate (4-7) Sodium Chloride (Sodium Chloride 0.45%) 1,000 mls @ 60 mls/hr IV .[id number] [facility] Last Admin: 06/08/17 14:25 Dose: 60 mls/hr Piperacillin Sod/Tazobactam Sod (Zosyn 3.375 In Ns 100ml) 100 mls @ 200 mls/hr IVPB Q6 [facility] PRN Reason: Protocol Stop: 06/17/17 13:50 Last Admin: 06/10/17 06:41 Dose: 200 mls/hr Ketorolac Tromethamine (Toradol) 30 mg IVP Q6H PRN PRN Reason: Pain, moderate (4-7) Last Admin: 06/08/17 16:46 Dose: 30 mg Polyethylene Glycol (Miralax) 17 gm PO BID [facility] Last Admin: 06/09/17 12:56 Dose: 17 gm - Labs Labs: 06/10/17 06:30 06/09/17 06:45 - Constitutional Appears: Well, No Acute Distress - Head Exam Head Exam: ATRAUMATIC, NORMOCEPHALIC - Eye Exam Eye Exam: Normal appearance - ENT Exam ENT Exam: Mucous Membranes Moist, Normal Exam - Respiratory Exam Respiratory Exam: Clear to Ausculation Bilateral, NORMAL BREATHING PATTERN. absent: Rales, Rhonchi, Wheezes, Respiratory Distress - Cardiovascular Exam Cardiovascular Exam: REGULAR RHYTHM, +S1, +S2 - GI/Abdominal Exam GI & Abdominal Exam: Soft, Normal Bowel Sounds. absent: Guarding, Rigid, Tenderness, Organomegaly - Extremities Exam Extremities Exam: absent: Joint Swelling, Pedal Edema - Neurological Exam Neurological Exam: Alert, Awake, Oriented x3 - Psychiatric Exam Psychiatric exam: Normal Affect, Normal Mood - Skin Skin Exam: Dry, Intact, Normal Color, Warm Assessment and Plan - Assessment and Plan (Free Text) Assessment: Samson Faust is a 36M w/ no sig medical hx who presents with LLQ. Etiology is likely 2/2 Acute sigmoid diverticulitis 1. Uncomplicated Sigmoid Diverticulitis 2. Chronic constipation Plan: -continue abx as per ID -recommend a 2 week PO abx outpt course upon discharge -recommend a colonoscopy 8 weeks post symptoms -pt wishes to follow-up with Dr. Akins, recommend outpt followup in 2 weeks - low residue diet -continue miralax and senna at bedtime -recommend increasing fiber intake at home, post diverticulitis flare -can supplement with benefiber will D/W Dr. Akins <Edmar Akins - Last Filed: 06/10/17 11:37> Objective - Vital Signs/Intake and Output Vital Signs (last 24 hours): Temp Pulse Resp BP Pulse Ox 98.0 F 57 L 20 152/70 H 98 06/10/17 07:30 06/10/17 07:30 06/10/17 07:30 06/10/17 07:30 06/10/17 07:30 Intake and Output: 06/10/17 06/10/17 06:59 18:59 Intake Total 1920 Balance 1920 - Labs Labs: 06/10/17 06:30 06/10/17 06:30 Attending/Attestation - Attestation I have personally seen and examined this patient.: Yes I have fully participated in the care of the patient.: Yes I have reviewed all pertinent clinical information, including history, physical exam and plan: Yes Notes (Text): 06/10/17 11:36 36 year old male who presents with 1 month history of LLQ pain found to have acute sigmoid diverticulitis. 1. Acute diverticulitis 2. Chronic constipation Plan: -significantly improved on IV zosyn -transition to augmentin x 2 weeks -follow up outpatient for colonoscopy -start miralax bid for constipation -high fiber diet
[2017-06-10 08:58] VITALS: BP 152/70; PULSE 57; TEMP 98
--- NOTE | 2017-06-10 11:44 | DS ---
HISTORY OF PRESENT ILLNESS: I saw him this morning actually with popcorn machine operator. We discussed the case with Samson. We are going to keep him on 875 of Augmentin for at least 10 days twice a day. He is not getting anymore seeds, nuts or popcorn. I discussed seeds, tomato sauce and certain foods he has to avoid, he understands this hopefully. This was his fourth event in the month of diverticulitis being acute. It is fifth time popcorn machine operator said he needs to have surgery. PHYSICAL EXAMINATION: VITAL SIGNS: He has a 98.8 temp, 58 pulse, 126/79 blood pressure, 20 respiratory rate, 98% of O2 sat on room air. HEENT: Head is atraumatic and normocephalic. HEART: Regular rate. LUNGS: Clear to auscultation. ABDOMEN: Soft, nontender. Positive bowel sounds. Much better than when he came in. EXTREMITIES: No edema. LABORATORY DATA: He has 4.1 white count, 14.3 hemoglobin, 42.9 hematocrit with 293 platelets. 142 sodium, potassium 3.6, BUN 6, creatinine 0.8. GFR is greater than 60. Sugar is 101, calcium is 9.2, total bilirubin 0.4, AST is 19, ALT is 34, alkaline phosphatase 45, total protein 6.8. ASSESSMENT AND PLAN: He is here for acute diverticulitis. He should continue with a very healthy diet, lots of water. No nuts, no popcorn, no seeds. Discussed at length, I should see me in the office in a week and he understands that. We will see him for acute diverticulitis for the fourth time in a month. Fabio Shea DO
--- NOTE | 2017-06-10 19:49 | PN ---
DATE: 06/10/2017 SUBJECTIVE: The patient is seen early this morning. He is doing much better. He was seen in room 566, bed 3. No fevers and chills. Abdominal pain is improved. PHYSICAL EXAMINATION: VITAL SIGNS: Temperature is 98, blood pressure is 150/70, respiratory rate of 18. HEENT: Unremarkable. NECK: Supple. LUNGS: Decreased breath sounds. HEART: Normal S1 and S2. ABDOMEN: Soft, nontender. No organomegaly. No rebound. LABORATORY EXAMINATION: Reveals a white count of 4.1, hemoglobin of 14. Chemistries reveal the patient has BUN of 6, creatinine of 0.8. Urinalysis is noted. Serology, HIV is negative. Microbiology reveals blood cultures have no growth, urine culture has no growth. ASSESSMENT AND PLAN: This is a 36-year-old male who recently was discharged from [facility] with diagnosis of diverticulitis, given Cipro and Flagyl which failed as an outpatient, is now admitted with acute sigmoid diverticulitis by CAT scan and clinically on Zosyn. The patient is much improved use p.o. Augmentin, to follow up as outpatient with Gastroenterology and PMD. Gerardo Morin MD
== END 2017-06-10 11:12 | disposition home or self-care (01) | DRG 392 ==
LOC: ED 07:42 → ERH 11:43 → 5RNO 15:43
PROVIDERS: ADMIT Family Medicine; ATTEND Family Medicine
DX: K57.32 Diverticulitis of large intestine without perforation or abscess without bleeding (principal); F17.200 Nicotine dependence, unspecified, uncomplicated; K59.09 Other constipation

== ENCOUNTER 2017-08-07 02:33 | Inpatient (IN) | payer BC ==
[2017-08-07] MEDS ORDERED: Sodium Chloride 0.9% 1,000 ML IV STA (03:25)
--- NOTE | 2017-08-07 03:29 | ED PDOC ---
Arrival/HPI - General Chief Complaint: Abdominal Pain Time Seen by Provider: 08/07/17 03:18 Historian: Patient - History of Present Illness Narrative History of Present Illness (Text): 08/07/17 03:23 A 36 year old male, whose past medical history includes diverticulitis, presents to the emergency department complaining of left lower abdominal pain. Patient reports he was diagnosed with diverticulitis 2 months ago and has been following up with his client renewal specialist, who recommends surgery. Patient was placed on Amoxicillin, with no improvement of symptoms. Patient denies any fever , chills, nausea, vomiting, chest pain, shortness of breath or any other complaints. PMD: Dr. Shea Chucking Lathe Operator: Dr. Akins Symptom Course: Unchanged Context: Home Past Medical History - Provider Review Nursing Documentation Reviewed: Yes - Infectious Disease Hx of Infectious Diseases: None - Tetanus Immunization Tetanus Immunization: Unknown - Cardiac Hx Cardiac Disorders: No - Pulmonary Hx Respiratory Disorders: No - Neurological Hx Neurological Disorder: No - HEENT Hx HEENT Disorder: No - Renal Hx Renal Disorder: No - Endocrine/Metabolic Hx Endocrine Disorders: No - Hematological/Oncological Hx Blood Disorders: No - Integumentary Hx Dermatological Disorder: No - Musculoskeletal/Rheumatological Hx Musculoskeletal Disorders: No Hx Falls: No - Gastrointestinal Hx Gastrointestinal Disorders: Yes Hx Diverticulitis: Yes - Genitourinary/Gynecological Hx Genitourinary Disorders: No - Psychiatric Hx Psychophysiologic Disorder: No Hx Substance Use: No - Anesthesia Hx Anesthesia: No Family/Social History - Physician Review Nursing Documentation Reviewed: Yes Family/Social History: No Known Family HX Smoking Status: Light Smoker < 10 Cigarettes Daily Hx Alcohol Use: No Hx Substance Use: No Allergies/Home Meds Allergies/Adverse Reactions: Allergies No Known Allergies Allergy (Verified 06/08/17 16:51) Review of Systems - Physician Review All systems were reviewed & negative as marked: Yes - Review of Systems Constitutional: absent: Fevers, Night Sweats Respiratory: absent: SOB Cardiovascular: absent: Chest Pain Gastrointestinal: Abdominal Pain (left lower abdomen). absent: Nausea, Vomiting Physical Exam Vital Signs Reviewed: Yes Vital Signs Temp Pulse Resp BP Pulse Ox 08/07/17 03:14 98.6 F 72 16 126/71 97 Temperature: Afebrile Blood Pressure: Normal Pulse: Regular Respiratory Rate: Normal Appearance: Positive for: Well-Appearing, Non-Toxic, Comfortable Pain Distress: None Mental Status: Positive for: Alert and Oriented X 3 - Systems Exam Head: Present: Atraumatic, Normocephalic Pupils: Present: PERRL Extroacular Muscles: Present: EOMI Conjunctiva: Present: Normal Mouth: Present: Moist Mucous Membranes Neck: Present: Normal Range of Motion Respiratory/Chest: Present: Clear to Auscultation, Good Air Exchange. No: Respiratory Distress, Accessory Muscle Use Cardiovascular: Present: Regular Rate and Rhythm, Normal S1, S2. No: Murmurs Abdomen: Present: Tenderness (left lower quadrant tenderness), Normal Bowel Sounds. No: Distention, Peritoneal Signs, Rebound, Guarding Back: Present: Normal Inspection Upper Extremity: Present: Normal Inspection. No: Cyanosis, Edema Lower Extremity: Present: Normal Inspection. No: Edema Neurological: Present: GCS=15, CN II-XII Intact, Speech Normal Skin: Present: Warm, Dry, Normal Color. No: Rashes Psychiatric: Present: Alert, Oriented x 3, Normal Insight, Normal Concentration Medical Decision Making ED Course and Treatment: 08/07/17 03:23 Impression: A 36 year old male with left lower abdominal pain Plan: -- Abdomen and pelvis CT -- Labs -- Blood culture -- IV fluids -- Reassess and disposition Progress Notes: Report date: 08/07/17 05:24 EXAM: CT Abdomen and Pelvis With Intravenous Contrast Dictated and Authenticated by: Dre Segura MD IMPRESSION: 1. Findings compatible with acute diverticulitis of sigmoid colon. Recommend endoscopy following resolution. 2. Incidental/non-acute findings are described above. 08/07/17 05:[address] Shea, who accepts admission to his service. Request Dr. Morin, Dr. Wells and Dr. Akins for consult. Patient aware of and in agreement with plan. - Lab Interpretations Lab Results: 08/07/17 03:45 08/07/17 03:45 Lab Results 08/07/17 03:45: WBC 8.4 D, RBC 5.16, Hgb 14.2, Hct 43.0, MCV 83.3, MCH 27.5, MCHC 33.0, RDW 14.4, Plt Count 255, MPV 9.9 08/07/17 03:45: Sodium 142, Potassium 3.4 L, Chloride 103, Carbon Dioxide 28, Anion Gap 15, BUN 9, Creatinine 0.8, Est GFR ( Amer) > 60, Est GFR (Non- Af Amer) > 60, Random Glucose 105, Calcium 9.1, Total Bilirubin 1.0, AST 35, ALT 35, Alkaline Phosphatase 47, Total Protein 6.6, Albumin 3.7, Globulin 3.0, Albumin/Globulin Ratio 1.2, Lipase 14 L 08/07/17 03:45: PT 16.0 H, INR 1.39 H, APTT 33.5 I have reviewed the lab results: Yes - RAD Interpretation Radiology Orders: 08/07/17 03:24 ABD & PELVIS IV CONTRAST ONLY [CT] Stat - Medication Orders Current Medication Orders: Sodium Chloride (Sodium Chloride 0.9%) 1,000 mls @ 100 mls/hr IV .Q10H [facility]LENA Last Admin: 08/07/17 04:55 Dose: 100 mls/hr eMAR Start Stop Document 08/07/17 04:55 JOL (Rec: 08/07/17 05:45 JOL [id number]) Intravenous Solution Start Date 08/07/17 Start Time 04:55 Piperacillin Sod/Tazobactam Sod (Zosyn 3.375 In Ns 100ml) 100 mls @ 200 mls/hr IV STAT STA PRN Reason: Protocol Stop: 08/07/17 06:18 Metronidazole (Flagyl) 500 mg in 100 mls @ 100 mls/hr IVPB STAT STA PRN Reason: Protocol Stop: 08/07/17 06:49 Discontinued Medications Sodium Chloride (Sodium Chloride 0.9%) 1,000 mls @ 999 mls/hr IV .Q1H1M STA Stop: 08/07/17 04:25 Last Admin: 08/07/17 03:45 Dose: 999 mls/hr eMAR Start Stop Document 08/07/17 03:45 JOL (Rec: 08/07/17 03:54 JOL [id number]) Intravenous Solution Start Date 08/07/17 Start Time 03:45 End Date 08/07/17 End time 04:46 Total Infusion Time 61 Potassium Chloride (K-Dur 20 Meq Er Tab) 20 meq PO STAT STA Stop: 08/07/17 05:17 Last Admin: 08/07/17 05:43 Dose: 20 meq - Scribe Statement The provider has reviewed the documentation as recorded by the Olayinka Singh Provider Scribe Attestation: All medical record entries made by the Scribe were at my direction and personally dictated by me. I have reviewed the chart and agree that the record accurately reflects my personal performance of the history, physical exam, medical decision making, and the department course for this patient. I have also personally directed, reviewed, and agree with the discharge instructions and disposition. Disposition/Present on Arrival - Present on Arrival Any Indicators Present on Arrival: No History of DVT/PE: No History of Uncontrolled Diabetes: No Urinary Catheter: No History of Decub. Ulcer: No History Surgical Site Infection Following: None - Disposition Have Diagnosis and Disposition been Completed?: Yes Diagnosis: Diverticulitis Disposition: HOSPITALIZED Disposition Time: 05:57 Patient Plan: Admission Condition: STABLE Forms: [facility] ([place]ian)
[2017-08-07 04:17] LABS: ALB/GLOB RATIO 1.2 (1.1-1.8); ALBUMIN 3.7 g/dL (3.0-4.8); ALT/SGPT 35 U/L (7-56); AST/SGOT 35 U/L (17-59); BLOOD UREA NITROGEN 9 mg/dL (7-21); CALCIUM 9.1 mg/dL (8.4-10.5); GFR AFRICAN-AMERICAN > 60; GFR NON-AFRICAN AMERICAN > 60; LIPASE 14 U/L (23-300)
[2017-08-07] MEDS ORDERED: Iohexol 350 MG/100 ML VIAL ONE ×2 (04:35→04:37)
[2017-08-07 04:38] LABS: HEMOGLOBIN 14.2 g/dL (14.0-18.0); MEAN CELL VOLUME 83.3 fl (80.0-105.0); MEAN CORPUSCULAR HEMOGLOBIN 27.5 pg (25.0-35.0); MEAN PLATELET VOLUME 9.9 fl (7.0-11.0); RBC 5.16 10^6/uL (3.5-6.1); RED CELL DISTRIBUTION WIDTH 14.4 % (11.5-14.5); WHITE BLOOD COUNT 8.4 10^3/ul (4.5-11.0)
[2017-08-07 04:48] LABS: INR 1.39 (0.93-1.08); PARTIAL THROMBOPLASTIN TIME 33.5 Seconds (25.1-36.5)
[2017-08-07] MEDS: Sodium Chloride 0.9% 1,000 ML IV SCH ×2 (04:55→15:28)
[2017-08-07] MEDS ORDERED: Potassium Chloride 20 mEq ER Tab PO STA (05:16)
--- NOTE | 2017-08-07 05:24 | CT ---
EXAM: CT Abdomen and Pelvis With Intravenous Contrast CLINICAL HISTORY: 36 years old, male; Pain; Abdominal pain; Localized; Lower; Patient HX: HX diverticulitis; Additional info: Abdominal pain left lower abdomen TECHNIQUE: Axial computed tomography images of the abdomen and pelvis with intravenous contrast. All CT scans at this facility use one or more dose reduction techniques, viz.: automated exposure control; ma/kV adjustment per patient size (including targeted exams where dose is matched to indication; i.e. head); or iterative reconstruction technique. Coronal and sagittal reformatted images were created and reviewed. CONTRAST: 100 mL of omnipaque 350 administered intravenously. COMPARISON: CT - ABD PELVIS IV CONTRAST ONLY 2017-06-08 10:00 FINDINGS: Lower thorax: Minimal atelectasis. ABDOMEN: Liver: Heterogeneous fatty infiltration. Gallbladder and bile ducts: No calcified stones. No ductal dilation. Pancreas: No ductal dilation. No mass. Spleen: No splenomegaly. Adrenals: No mass. Kidneys and ureters: Probable RIGHT renal cyst. No hydronephrosis. Stomach and bowel: Scattered diverticula within colon. Moderate mural thickening short segment of sigmoid colon. Moderate stranding/fluid within adjacent fat. No obstruction. Appendix: No findings to suggest acute appendicitis. PELVIS: Bladder: Unremarkable. Reproductive: Unremarkable as visualized. ABDOMEN and PELVIS: Intraperitoneal space: Small free fluid within pelvis. No free air. Bones/joints: No acute fracture. Soft tissues: Unremarkable. Vasculature: Unremarkable. No aneurysm. Lymph nodes: No pathologically enlarged lymph nodes. IMPRESSION: 1. Findings compatible with acute diverticulitis of sigmoid colon. Recommend endoscopy following resolution. 2. Incidental/non-acute findings are described above.
[2017-08-07] MEDS ORDERED: Piperacillin/Tazobact 3.375 gm 100 ML IV STA (05:49)
[2017-08-07] MEDS ORDERED: metroNIDAZOLE IV 500 mg/100 ml 500 MG/100 ML BAG IVPB STA (05:50)
--- NOTE | 2017-08-07 11:21 | CP.PCM.CON ---
History of Present Illness - History of Present Illness History of Present Illness: General Surgery Consult Re: Diverticulitis, stricture HPI: 36M presented to the ED complaining of left lower abdominal pain. He had diverticulitis in May and has been following up with Dr. Akins (GI), who did a colonoscopy 08/06/17 which showed a nontraversable stricture in the sigmoid colon. After the prep, he was feeling a return of symptoms so he came in. Denies any fever, chills, nausea, vomiting, chest pain, SOB, change in bowel /bladder habits or any other complaints. PMH: Denies PSH: Colonoscopy 08/06/17 SH: + tobacco use, social EtOH, No drug use FH: Noncontributory All: NKDA Meds: Denies Review of Systems - Review of Systems All systems: reviewed and no additional remarkable complaints except (as per HPI ) Past Patient History - Infectious Disease Hx of Infectious Diseases: None - Tetanus Immunizations Tetanus Immunization: Unknown - Past Medical History & Family History Past Medical History?: Yes - Past Social History Smoking Status: Light Smoker < 10 Cigarettes Daily - CARDIAC Hx Cardiac Disorders: No - PULMONARY Hx Respiratory Disorders: No - NEUROLOGICAL Hx Neurological Disorder: No - HEENT Hx HEENT Problems: No - RENAL Hx Chronic Kidney Disease: No - ENDOCRINE/METABOLIC Hx Endocrine Disorders: No - HEMATOLOGICAL/ONCOLOGICAL Hx Blood Disorders: No - INTEGUMENTARY Hx Dermatological Problems: No - MUSCULOSKELETAL/RHEUMATOLOGICAL Hx Musculoskeletal Disorders: No Hx Falls: No - GASTROINTESTINAL Hx Gastrointestinal Disorders: Yes Hx Diverticulitis: Yes - GENITOURINARY/GYNECOLOGICAL Hx Genitourinary Disorders: No - PSYCHIATRIC Hx Psychophysiologic Disorder: No Hx Substance Use: No - SURGICAL HISTORY Hx Surgeries: No - ANESTHESIA Hx Anesthesia: No Meds Allergies/Adverse Reactions: Allergies Allergy/AdvReac Type Severity Reaction Status Date / Time No Known Allergies Allergy Verified 06/08/17 16:51 - Medications Medications: Current Medications Sodium Chloride (Sodium Chloride 0.9%) 1,000 mls @ 100 mls/hr IV .Q10H [facility] Last Admin: 08/07/17 04:55 Dose: 100 mls/hr Piperacillin Sod/Tazobactam Sod (Zosyn 3.375 In Ns 100ml) 100 mls @ 200 mls/hr IVPB Q6 [facility] PRN Reason: Protocol Stop: 08/16/17 12:01 Physical Exam - Constitutional Appears: Non-toxic, No Acute Distress - Head Exam Head Exam: ATRAUMATIC, NORMOCEPHALIC - Eye Exam Eye Exam: EOMI. absent: Scleral icterus - ENT Exam ENT Exam: Mucous Membranes Moist Additional comments: trachea midline - Neck Exam Neck exam: Positive for: Full Rom. Negative for: Tenderness - Respiratory Exam Respiratory Exam: NORMAL BREATHING PATTERN. absent: Respiratory Distress - Cardiovascular Exam Cardiovascular Exam: RRR. absent: Bradycardia, Tachycardia - GI/Abdominal Exam GI & Abdominal Exam: Guarding (mild), Soft, Tenderness (in LLQ). absent: Distended, Firm, Hernia, Rebound, Rigid - Rectal Exam Rectal Exam: Deferred - Extremities Exam Extremities exam: Positive for: normal capillary refill. Negative for: calf tenderness - Back Exam Back exam: absent: CVA tenderness (L), CVA tenderness (R) - Neurological Exam Neurological exam: Alert, Oriented x3 - Psychiatric Exam Psychiatric exam: Normal Affect, Normal Mood - Skin Skin Exam: Dry, Warm Results - Vital Signs Recent Vital Signs: Last Vital Signs Temp 98.5 F 08/07/17 07:42 Pulse 75 08/07/17 09:03 Resp 16 08/07/17 09:03 BP 121/80 08/07/17 09:03 Pulse Ox 98 08/07/17 09:03 - Labs Result Diagrams: 08/07/17 03:45 08/07/17 03:45 - Imaging and Cardiology CT scan - abdomen Status: Image reviewed by me, Report reviewed by me Assessment & Plan - Assessment and Plan (Free Text) Assessment: 36M with diverticulitis and rectosigmoid stricture Plan: CLD Plan for OR this week for resection Monitor bowel function IVF Pain control Cont Abx D/W Dr. Russell Weiss PGY4
--- NOTE | 2017-08-07 11:29 | CP.PCM.CON ---
<Loretta Calle - Last Filed: 08/07/17 11:33> History of Present Illness - History of Present Illness History of Present Illness: GI Fellow PGY4 Consult Note This is a 36M w/ hx of chronic constipation and diverticulitis who presents to the ER with complaints of LLQ pain. Pt had a colonoscopy yesterday 08/06/17 for recurrent diverticulitis and was found to have sigmoid mucosal thickening and stricture and scope was not able to be transversed. Pt was recommend to follow up out pt for surgical evaluation. Pt states at home after the procedure he started having LLQ pain and came to ER. At this time, his pain is around a 1 out of 10 and has intermittent radiation to his left groin. He denies any fevers , BRBPR, melena, nausea or vomiting. Denies any GERD like symptoms. A CT scan of the abd in the ER revealed acute uncomplicated diverticulitis of the sigmoid. He was started on IV Zosyn. ROS: A 12pt ROS was negative except as above. PMHx: As stated in HPI PSHx: None Social Hx: Denies smoking, +social drinker, denies any illicit drugs Family hx: denies colon cancer Past Patient History - Infectious Disease Hx of Infectious Diseases: None - Tetanus Immunizations Tetanus Immunization: Unknown - Past Medical History & Family History Past Medical History?: Yes - Past Social History Smoking Status: Light Smoker < 10 Cigarettes Daily - CARDIAC Hx Cardiac Disorders: No - PULMONARY Hx Respiratory Disorders: No - NEUROLOGICAL Hx Neurological Disorder: No - HEENT Hx HEENT Problems: No - RENAL Hx Chronic Kidney Disease: No - ENDOCRINE/METABOLIC Hx Endocrine Disorders: No - HEMATOLOGICAL/ONCOLOGICAL Hx Blood Disorders: No - INTEGUMENTARY Hx Dermatological Problems: No - MUSCULOSKELETAL/RHEUMATOLOGICAL Hx Musculoskeletal Disorders: No Hx Falls: No - GASTROINTESTINAL Hx Gastrointestinal Disorders: Yes Hx Diverticulitis: Yes - GENITOURINARY/GYNECOLOGICAL Hx Genitourinary Disorders: No - PSYCHIATRIC Hx Psychophysiologic Disorder: No Hx Substance Use: No - SURGICAL HISTORY Hx Surgeries: No - ANESTHESIA Hx Anesthesia: No Meds Allergies/Adverse Reactions: Allergies Allergy/AdvReac Type Severity Reaction Status Date / Time No Known Allergies Allergy Verified 06/08/17 16:51 - Medications Medications: Current Medications Sodium Chloride (Sodium Chloride 0.9%) 1,000 mls @ 100 mls/hr IV .Q10H [facility] Last Admin: 08/07/17 04:55 Dose: 100 mls/hr Piperacillin Sod/Tazobactam Sod (Zosyn 3.375 In Ns 100ml) 100 mls @ 200 mls/hr IVPB Q6 [facility] PRN Reason: Protocol Stop: 08/16/17 12:01 Physical Exam - Constitutional Appears: Non-toxic, No Acute Distress - Head Exam Head Exam: ATRAUMATIC, NORMAL INSPECTION, NORMOCEPHALIC - Eye Exam Eye Exam: EOMI, Normal appearance, PERRL Pupil Exam: PERRL - ENT Exam ENT Exam: Mucous Membranes Moist, Normal Exam - Neck Exam Neck exam: Positive for: Normal Inspection - Respiratory Exam Respiratory Exam: NORMAL BREATHING PATTERN - Cardiovascular Exam Cardiovascular Exam: REGULAR RHYTHM, RRR - GI/Abdominal Exam GI & Abdominal Exam: Normal Bowel Sounds, Soft, Tenderness. absent: Distended, Guarding, Organomegaly, Rebound, Rigid - Rectal Exam Rectal Exam: Deferred - Extremities Exam Extremities exam: Positive for: normal inspection - Back Exam Back exam: NORMAL INSPECTION - Neurological Exam Neurological exam: Alert, CN II-XII Intact - Psychiatric Exam Psychiatric exam: Normal Affect, Normal Mood - Skin Skin Exam: Dry, Intact, Normal Color, Warm Results - Vital Signs Recent Vital Signs: Last Vital Signs Temp 98.5 F 08/07/17 07:42 Pulse 75 08/07/17 09:03 Resp 16 08/07/17 09:03 BP 121/80 08/07/17 09:03 Pulse Ox 98 08/07/17 09:03 - Labs Result Diagrams: 08/07/17 03:45 08/07/17 03:45 Assessment & Plan - Assessment and Plan (Free Text) Assessment: This is a 36yM with diverticulitis s/p colonoscopy and abdominal pain. 1. Diverticulitis with rectosigmoid stricture Plan: -Continue pain control and antiemetics -Advance to CLD -IV abx -Appreciate surgical recommendations, plan for resection this week -Ct reviewed with no signs of perforation or abscess -Will continue to follow closely <Edmar Akins - Last Filed: 08/07/17 15:16> Meds - Medications Medications: Current Medications Sodium Chloride (Sodium Chloride 0.9%) 1,000 mls @ 100 mls/hr IV .Q10H [facility] Last Admin: 08/07/17 04:55 Dose: 100 mls/hr Piperacillin Sod/Tazobactam Sod (Zosyn 3.375 In Ns 100ml) 100 mls @ 200 mls/hr IVPB Q6 [facility] PRN Reason: Protocol Stop: 08/16/17 12:01 Last Admin: 08/07/17 12:55 Dose: 200 mls/hr Morphine Sulfate (Morphine) 1 mg IVP Q4H PRN PRN Reason: Pain, moderate (4-7) Ondansetron HCl (Zofran Inj) 4 mg IVP Q6H PRN PRN Reason: Nausea/Vomiting Results - Vital Signs Recent Vital Signs: Last Vital Signs Temp 98.5 F 08/07/17 07:42 Pulse 65 08/07/17 12:43 Resp 18 08/07/17 12:43 BP 116/71 08/07/17 12:43 Pulse Ox 98 08/07/17 12:43 - Labs Result Diagrams: 08/07/17 03:45 08/07/17 03:45 Attending/Attestation - Attestation I have personally seen and examined this patient.: Yes I have fully participated in the care of the patient.: Yes I have reviewed all pertinent clinical information: Yes Notes (Text): 08/07/17 15:14 36 year old male with h/o recurrent/refractory acute diverticulitis admitted with the recurrent diverticulitis 1. Acute diverticulitis Plan: -he has had recurrent or unresolving acute diverticulitis for several months now -he has had multiple courses of different IV and oral antibiotics -attempted colonoscopy yesterday, but unable to pass sigmoid due to narrowing from diverticulitis -recommend surgical eval for consideration of resection -IV antibiotics in the meantime
--- NOTE | 2017-08-07 12:26 | CON ---
DATE: 08/07/2017 LOCATION: The patient was seen in the emergency room. CHIEF COMPLAINT: Abdominal pain times several days. HISTORY OF PRESENT ILLNESS: This is a 36-year-old male known to me from previous admission in May. The patient has had an acute diverticulitis and was treated with multiple antibiotics and was discharged and was retreated and followed up with Gastroenterology and referred for possible surgery. The patient states he has had low-grade fevers and chills. He had an abdominal pain in left lower quadrant and he had an episode of nausea, but no diarrhea. No dysuria or frequency. No headaches. PAST MEDICAL HISTORY: Significant for acute diverticulitis. PAST SURGICAL HISTORY: Noncontributory. ALLERGIES: THE PATIENT HAS NO KNOWN ALLERGIES. MEDICATIONS AT HOME: He was on Augmentin. PHYSICAL EXAMINATION GENERAL: He is in bed. No acute distress. VITAL SIGNS: Temperature of 98, heart rate of 100, blood pressure is 120/60, respiratory rate of 18. HEENT: Examination is unremarkable. NECK: Supple. LUNGS: Decreased breath sounds. HEART: Normal S1, S2. ABDOMEN: Soft. DATA: Laboratory examination reveals that white count is 8.4, hemoglobin of 14, platelets of 255,000. Coagulation is noted. BUN of 9, creatinine of 0.8. Microbiology reveals the blood cultures are negative, urine cultures are negative. The patient had a CAT scan of the abdomen and pelvis, which revealed acute diverticulitis of the sigmoid colon and emergency room chart is reviewed. The urine cultures from this admission are pending. ASSESSMENT AND PLAN: This 36-year-old male with acute diverticulitis of the sigmoid colon. We will start the patient on [place], Dr. Akins, slunk skin curer is on consult, Dr. William Wells, his surgeon is on consult and we will check on the cultures and we will make further recommendations. Gerardo Morin MD
[2017-08-07] MEDS: Piperacillin/Tazobact 3.375 gm 100 ML IVPB SCH ×2 (12:55→23:04)
[2017-08-07] MEDS ORDERED: Potassium Chloride 20 mEq/15 ml LIQ UD PO STA (13:24)
[2017-08-07] MEDS ORDERED: Morphine 2 mg/ml ISec IVP PRN (13:31)
--- NOTE | 2017-08-07 17:45 | RAD ---
HISTORY: pre-op evaluation COMPARISON: No prior. FINDINGS: LUNGS: No active pulmonary disease. PLEURA: No significant pleural effusion identified, no pneumothorax apparent. CARDIOVASCULAR: Normal. OSSEOUS STRUCTURES: No significant abnormalities. VISUALIZED UPPER ABDOMEN: Normal. OTHER FINDINGS: None. IMPRESSION: No active disease.
[2017-08-07] MEDS ORDERED: Influenza Vaccine 60 mcg/0.5 mL SYR (4YR UP) IM ONE (23:06)
[2017-08-07] MEDS ORDERED: Pneumococcal 23-Valent Vaccine IM ONE (23:06)
[2017-08-07 23:07] VITALS: BMI 36.5
[2017-08-08] MEDS: Piperacillin/Tazobact 3.375 gm 100 ML IVPB SCH ×4 (01:52→17:57)
[2017-08-08 07:43] LABS: HEMOGLOBIN 13.9 g/dL (14.0-18.0); MEAN CELL VOLUME 83.6 fl (80.0-105.0); MEAN CORPUSCULAR HEMOGLOBIN 27.1 pg (25.0-35.0); MEAN CORPUSCULAR HGB CONC 32.5 g/dl (31.0-37.0); MEAN PLATELET VOLUME 9.7 fl (7.0-11.0); RBC 5.12 10^6/uL (3.5-6.1); RED CELL DISTRIBUTION WIDTH 14.3 % (11.5-14.5); WHITE BLOOD COUNT 5.1 10^3/ul (4.5-11.0)
[2017-08-08 08:23] LABS: ALB/GLOB RATIO 1.1 (1.1-1.8); ALBUMIN 3.4 g/dL (3.0-4.8); ALT/SGPT 31 U/L (7-56); AST/SGOT 23 U/L (17-59); BLOOD UREA NITROGEN 5 mg/dL (7-21); CALCIUM 9.2 mg/dL (8.4-10.5); GFR AFRICAN-AMERICAN > 60; GFR NON-AFRICAN AMERICAN > 60
[2017-08-08] MEDS: Enoxaparin 40 mg Syringe SC SCH (10:33)
--- NOTE | 2017-08-08 10:56 | CP.PCM.PN ---
<Loretta Calle - Last Filed: 08/08/17 10:53> Subjective - Date & Time of Evaluation Date of Evaluation: 08/08/17 Time of Evaluation: 08:00 - Subjective Subjective: GI Fellow PGY 4 Progress Note Pt seen and evaluated at bedside, pt doing well with no more abdominal pain, feels better after abx. Tolerating liquid diet. ROS: A 12pt ROS was negative except as above. Objective - Vital Signs/Intake and Output Vital Signs (last 24 hours): Temp Pulse Resp BP Pulse Ox 98.8 F 56 L 20 125/75 96 08/08/17 07:30 08/08/17 07:30 08/08/17 07:30 08/08/17 07:30 08/08/17 07:30 Intake and Output: 08/08/17 08/08/17 06:59 18:59 Intake Total 1060 Output Total 700 Balance 360 - Medications Medications: Current Medications Enoxaparin Sodium (Lovenox) 40 mg SC DAILY [facility] PRN Reason: Protocol Last Admin: 08/08/17 10:33 Dose: 40 mg Sodium Chloride (Sodium Chloride 0.9%) 1,000 mls @ 100 mls/hr IV .Q10H [facility] Last Admin: 08/07/17 15:28 Dose: 100 mls/hr Piperacillin Sod/Tazobactam Sod (Zosyn 3.375 In Ns 100ml) 100 mls @ 200 mls/hr IVPB Q6 [facility] PRN Reason: Protocol Stop: 08/16/17 12:01 Last Admin: 08/08/17 05:04 Dose: 200 mls/hr Morphine Sulfate (Morphine) 1 mg IVP Q4H PRN PRN Reason: Pain, moderate (4-7) Ondansetron HCl (Zofran Inj) 4 mg IVP Q6H PRN PRN Reason: Nausea/Vomiting - Labs Labs: 08/08/17 05:00 08/08/17 05:00 PT 16.0 SECONDS (9.4-12.5) H 08/07/17 03:45 INR 1.39 (0.93-1.08) H 08/07/17 03:45 APTT 33.5 Seconds (25.1-36.5) 08/07/17 03:45 - Constitutional Appears: No Acute Distress, In Acute Distress - Head Exam Head Exam: ATRAUMATIC, NORMAL INSPECTION, NORMOCEPHALIC - Eye Exam Eye Exam: EOMI, Normal appearance Pupil Exam: PERRL - ENT Exam ENT Exam: Mucous Membranes Moist, Normal Exam - Neck Exam Neck Exam: Normal Inspection - Respiratory Exam Respiratory Exam: Clear to Ausculation Bilateral, NORMAL BREATHING PATTERN - Cardiovascular Exam Cardiovascular Exam: REGULAR RHYTHM - GI/Abdominal Exam GI & Abdominal Exam: Soft, Normal Bowel Sounds. absent: Distended, Guarding - Extremities Exam Extremities Exam: Full ROM, Normal Inspection - Back Exam Back Exam: NORMAL INSPECTION - Neurological Exam Neurological Exam: Alert, Awake, Oriented x3 - Psychiatric Exam Psychiatric exam: Normal Affect, Normal Mood Assessment and Plan - Assessment and Plan (Free Text) Assessment: This is a 36yM with diverticulitis s/p colonoscopy and abdominal pain. 1. Recurrent diverticulitis with rectosigmoid stricture Plan: -Continue pain control and antiemetics -Continue CLD -IV abx -Appreciate surgical recommendations, plan for resection this week -Ct reviewed with no signs of perforation or abscess -Colonoscopy 08/06 with stricture in sigmoid, scope unable to pass scope -Will continue to follow closely <Edmar Akins - Last Filed: 08/08/17 14:26> Objective - Vital Signs/Intake and Output Vital Signs (last 24 hours): Temp Pulse Resp BP Pulse Ox 98.8 F 56 L 20 125/75 96 08/08/17 07:30 08/08/17 07:30 08/08/17 07:30 08/08/17 07:30 08/08/17 07:30 Intake and Output: 08/08/17 08/08/17 06:59 18:59 Intake Total 1060 Output Total 700 Balance 360 - Medications Medications: Current Medications Enoxaparin Sodium (Lovenox) 40 mg SC DAILY [facility] PRN Reason: Protocol Last Admin: 08/08/17 10:33 Dose: 40 mg Sodium Chloride (Sodium Chloride 0.9%) 1,000 mls @ 100 mls/hr IV .Q10H [facility] Last Admin: 08/07/17 15:28 Dose: 100 mls/hr Piperacillin Sod/Tazobactam Sod (Zosyn 3.375 In Ns 100ml) 100 mls @ 200 mls/hr IVPB Q6 [facility] PRN Reason: Protocol Stop: 08/16/17 12:01 Last Admin: 08/08/17 13:01 Dose: 200 mls/hr Morphine Sulfate (Morphine) 1 mg IVP Q4H PRN PRN Reason: Pain, moderate (4-7) Ondansetron HCl (Zofran Inj) 4 mg IVP Q6H PRN PRN Reason: Nausea/Vomiting - Labs Labs: 08/08/17 05:00 08/08/17 05:00 PT 16.0 SECONDS (9.4-12.5) H 08/07/17 03:45 INR 1.39 (0.93-1.08) H 08/07/17 03:45 APTT 33.5 Seconds (25.1-36.5) 08/07/17 03:45 Attending/Attestation - Attestation I have personally seen and examined this patient.: Yes I have fully participated in the care of the patient.: Yes I have reviewed all pertinent clinical information, including history, physical exam and plan: Yes Notes (Text): 08/08/17 14:26 36 year old male with h/o recurrent/refractory acute diverticulitis admitted with the recurrent diverticulitis 1. Acute diverticulitis Plan: -he has had recurrent or unresolving acute diverticulitis for several months now -he has had multiple courses of different IV and oral antibiotics -attempted colonoscopy yesterday, but unable to pass sigmoid due to narrowing from diverticulitis -surgery planned for wednesday -IV antibiotics in the meantime
--- NOTE | 2017-08-08 12:11 | CP.PCM.PN ---
Subjective - Date & Time of Evaluation Date of Evaluation: 08/08/17 Time of Evaluation: 12:02 - Subjective Subjective: Surgery: Dr. Wells Pt seen and examined, resting comfortably in bed. No acute events overnight. No complaints. Objective - Vital Signs/Intake and Output Vital Signs (last 24 hours): Temp Pulse Resp BP Pulse Ox 98.8 F 56 L 20 125/75 96 08/08/17 07:30 08/08/17 07:30 08/08/17 07:30 08/08/17 07:30 08/08/17 07:30 Intake and Output: 08/08/17 08/08/17 06:59 18:59 Intake Total 1060 Output Total 700 Balance 360 - Medications Medications: Current Medications Enoxaparin Sodium (Lovenox) 40 mg SC DAILY [facility] PRN Reason: Protocol Last Admin: 08/08/17 10:33 Dose: 40 mg Sodium Chloride (Sodium Chloride 0.9%) 1,000 mls @ 100 mls/hr IV .Q10H [facility] Last Admin: 08/07/17 15:28 Dose: 100 mls/hr Piperacillin Sod/Tazobactam Sod (Zosyn 3.375 In Ns 100ml) 100 mls @ 200 mls/hr IVPB Q6 [facility] PRN Reason: Protocol Stop: 08/16/17 12:01 Last Admin: 08/08/17 05:04 Dose: 200 mls/hr Morphine Sulfate (Morphine) 1 mg IVP Q4H PRN PRN Reason: Pain, moderate (4-7) Ondansetron HCl (Zofran Inj) 4 mg IVP Q6H PRN PRN Reason: Nausea/Vomiting - Labs Labs: 08/08/17 05:00 08/08/17 05:00 PT 16.0 SECONDS (9.4-12.5) H 08/07/17 03:45 INR 1.39 (0.93-1.08) H 08/07/17 03:45 APTT 33.5 Seconds (25.1-36.5) 08/07/17 03:45 - Constitutional Appears: Non-toxic, No Acute Distress - Head Exam Head Exam: ATRAUMATIC, NORMOCEPHALIC - Eye Exam Eye Exam: EOMI - ENT Exam ENT Exam: Mucous Membranes Moist - Neck Exam Neck Exam: Full ROM - Respiratory Exam Respiratory Exam: NORMAL BREATHING PATTERN. absent: Accessory Muscle Use, Respiratory Distress - GI/Abdominal Exam GI & Abdominal Exam: Soft. absent: Distended, Firm, Guarding, Rigid, Tenderness , Rebound - Extremities Exam Extremities Exam: absent: Calf Tenderness, Pedal Edema - Neurological Exam Neurological Exam: Alert, Awake, Oriented x3 - Psychiatric Exam Psychiatric exam: Normal Affect, Normal Mood - Skin Skin Exam: Dry, Normal Color, Warm Assessment and Plan - Assessment and Plan (Free Text) Assessment: 36M w. sigmoid stricture 2/2 to diverticulitis -Tentative OR tomorrow for sigmoid resection -NPO at midnight -c/w abx -hold DVT ppx -d/w attending Zemaitis PGY3
--- NOTE | 2017-08-08 12:53 | PN ---
DATE: SUBJECTIVE: The patient is in bed, in no acute distress, nontoxic. OBJECTIVE VITAL SIGNS: Temperature is 98, blood pressure is 114/60, respiratory rate of 20, heart rate of 55. HEENT: Examination is unremarkable. NECK: Supple. LUNGS: Have decreased breath sounds. HEART: Normal S1, S2. ABDOMEN: Soft. DATA: Laboratory examination reveals a white count of 8.4, hemoglobin of 14, platelets of 255,000. Coagulation is as noted. Chemistries reveals a BUN of 9, creatinine of 0.8. Microbiology reveals the blood cultures are negative and. review of orders reveals the patient to be on Zosyn. The patient had a chest x-ray. No active disease. ASSESSMENT AND PLAN: This is a 36-year-old male known to me from previous admission, admitted with abdominal pain, found to have acute sigmoid diverticulitis, on Zosyn day #2. GI input from Dr. Akins and Dr. William Wells, the Surgery is appreciated and we will continue Zosyn at this time, the patient for possible surgery. Gerardo Morin MD
[2017-08-08] MEDS: Sodium Chloride 0.9% 1,000 ML IV SCH (17:58)
[2017-08-09] MEDS: Piperacillin/Tazobact 3.375 gm 100 ML IVPB SCH ×4 (00:21→17:51)
[2017-08-09 07:03] LABS: HEMOGLOBIN 14.5 g/dL (14.0-18.0); MEAN CELL VOLUME 82.5 fl (80.0-105.0); MEAN CORPUSCULAR HEMOGLOBIN 27.3 pg (25.0-35.0); MEAN PLATELET VOLUME 9.5 fl (7.0-11.0); RBC 5.32 10^6/uL (3.5-6.1); WHITE BLOOD COUNT 4.3 10^3/ul (4.5-11.0)
[2017-08-09 07:14] LABS: INR 1.28 (0.93-1.08); PARTIAL THROMBOPLASTIN TIME 34.5 Seconds (25.1-36.5); PROTHROMBIN TIME 14.8 SECONDS (9.4-12.5)
[2017-08-09 07:25] LABS: ALB/GLOB RATIO 1.1 (1.1-1.8); ALBUMIN 3.5 g/dL (3.0-4.8); ALT/SGPT 27 U/L (7-56); AST/SGOT 19 U/L (17-59); BLOOD UREA NITROGEN 8 mg/dL (7-21); CALCIUM 9.5 mg/dL (8.4-10.5); GFR AFRICAN-AMERICAN > 60; GFR NON-AFRICAN AMERICAN > 60
--- NOTE | 2017-08-09 08:06 | HP ---
DATE OF EXAM: 08/07/2017 HISTORY OF PRESENT ILLNESS: I saw him in the emergency room. He is having a few days of left lower quadrant abdominal pain. It got to the point, where he cannot take any more, came to the emergency room. He was diagnosed with diverticulitis with rectosigmoid stricture from a colonoscopy who actually recommended surgery and now he cannot take the pain and now he is asking for surgery. Surgery is on the case. GI is on the case. Infectious Disease doctors are on the case. He is presently right now resting comfortably on pain meds with IV fluids. He will be made n.p.o. He has a history of diverticulitis. FAMILY HISTORY: No known family history. SOCIAL HISTORY: Still smoking cigarettes. We discussed that he has to quit. No alcohol. No substance abuse. ALLERGIES: NO KNOWN DRUG ALLERGIES. MEDICATIONS: Not taking any meds. He is supposed to be on nose feed, not diet. REVIEW OF SYSTEMS: No acute vision changes or hearing changes. No sore throat. No neck pain. No chest pain or palpitations. No shortness of breath or cough. There is abdominal pain, left lower quadrant. It is sharp. It is persisting. It is painful. No nausea or vomiting. Extremities, have no edema. Extremities, he can move all four. No anxiety or depression or sweating. No tremors. PHYSICAL EXAMINATION: VITAL SIGNS: He has a 98.6 temperature, 72 pulse, 16 respiratory rate, 126/71 blood pressure, 97% O2 sat on room air. HEENT: Head is atraumatic, normocephalic. His extraocular muscles are intact. Pupils are equal and reactive to light and accommodation. He is a little bit uncomfortable from the left lower quadrant pain. He is medicated for at this time. He is nontoxic. Throat is moist. NECK: Supple. Thyroid midline. No palpable appreciable lymphadenopathy. HEART: Regular rate. Normal S1, S2. LUNGS: Decreased breath sounds bilaterally, but clear to auscultation. ABDOMEN: Tender to left lower quadrant, questionable guarding, no rebound. Decreased bowel sounds. EXTREMITIES: No edema. NEUROLOGIC: GCS is 15. Cranial nerves II through XII grossly intact. SKIN: Warm and dry. No apparent rashes or ulcers appreciated. Alert and oriented x3. LABORATORY DATA: He had a bunch of tests. He has an 8.4 white count, 14.2 hemoglobin, 43 hematocrit with 255 platelets. His INR is 1.39. He has 142 sodium, potassium is 3.4, replaced with some potassium, BUN 9, creatinine 0.8, GFR is greater than 60, sugar is 105, calcium is 9.1, total bili is 1, AST is 35, ALT is 35, alk phos 47, total protein 6.6, albumin is 3.7. He is being seen by GI surgery, Infectious Disease, and he had a CAT scan showing the rectosigmoid diverticulitis. He will be on IV fluids, IV Flagyl, potassium replacement, Zosyn IV. We are going to check his labs tomorrow. He will be n.p.o. I will continue with aggressive treatment and care. Hopefully, we will plan for surgery. This section of his intestine is removed. Thank you very much who was in lot of abdominal pain. Fabio Shea DO MTDiJm
--- NOTE | 2017-08-09 08:53 | CP.PCM.PN ---
Subjective - Date & Time of Evaluation Date of Evaluation: 08/09/17 Time of Evaluation: 08:50 - Subjective Subjective: Surgery: Dr. Wells Patient feeling good today. Has been NPO; however OR has been postponed till tomorrow. Objective - Vital Signs/Intake and Output Vital Signs (last 24 hours): Temp Pulse Resp BP Pulse Ox 98 F 63 20 116/81 98 08/09/17 07:30 08/09/17 07:30 08/09/17 07:30 08/09/17 07:30 08/09/17 07:30 - Medications Medications: Current Medications Enoxaparin Sodium (Lovenox) 40 mg SC DAILY [facility] PRN Reason: Protocol Last Admin: 08/08/17 10:33 Dose: 40 mg Sodium Chloride (Sodium Chloride 0.9%) 1,000 mls @ 100 mls/hr IV .Q10H [facility] Last Admin: 08/08/17 17:58 Dose: 100 mls/hr Piperacillin Sod/Tazobactam Sod (Zosyn 3.375 In Ns 100ml) 100 mls @ 200 mls/hr IVPB Q6 [facility] PRN Reason: Protocol Stop: 08/16/17 12:01 Last Admin: 08/09/17 06:49 Dose: 200 mls/hr Morphine Sulfate (Morphine) 1 mg IVP Q4H PRN PRN Reason: Pain, moderate (4-7) Ondansetron HCl (Zofran Inj) 4 mg IVP Q6H PRN PRN Reason: Nausea/Vomiting - Labs Labs: 08/09/17 06:30 08/09/17 06:30 PT 14.8 SECONDS (9.4-12.5) H 08/09/17 06:30 INR 1.28 (0.93-1.08) H 08/09/17 06:30 APTT 34.5 Seconds (25.1-36.5) 08/09/17 06:30 - Constitutional Appears: Non-toxic, No Acute Distress - Head Exam Head Exam: ATRAUMATIC, NORMOCEPHALIC - Eye Exam Eye Exam: EOMI, Normal appearance - ENT Exam ENT Exam: Mucous Membranes Moist - Respiratory Exam Respiratory Exam: NORMAL BREATHING PATTERN. absent: Respiratory Distress - Cardiovascular Exam Cardiovascular Exam: REGULAR RHYTHM. absent: Tachycardia - GI/Abdominal Exam GI & Abdominal Exam: Soft. absent: Distended, Tenderness - Neurological Exam Neurological Exam: Alert, Awake - Psychiatric Exam Psychiatric exam: Normal Affect, Normal Mood - Skin Skin Exam: Dry, Normal Color, Warm Assessment and Plan - Assessment and Plan (Free Text) Assessment: 36 y/o male with hx of diverticulitis and stricture Plan: -plan for OR 08/10 -ok for CLD today -NPO pmn -type and crossed for 2 units PRBC -am labs -further recs per Dr. Russell TOUSSAINTKendall PGY3
--- NOTE | 2017-08-09 09:06 | CP.PCM.PN ---
<Dean Carreno - Last Filed: 08/09/17 09:08> Subjective - Date & Time of Evaluation Date of Evaluation: 08/09/17 Time of Evaluation: 07:00 - Subjective Subjective: PGY4 GI follow up Pts seen and examined bedside no complaints, mild LLQ pain No BM overnight Denies any fever, chills or diaphoresis ROS: 12 poinr ROS conducted, neg other than above Objective - Vital Signs/Intake and Output Vital Signs (last 24 hours): Temp Pulse Resp BP Pulse Ox 98 F 63 20 116/81 98 08/09/17 07:30 08/09/17 07:30 08/09/17 07:30 08/09/17 07:30 08/09/17 07:30 - Medications Medications: Current Medications Enoxaparin Sodium (Lovenox) 40 mg SC DAILY [facility] PRN Reason: Protocol Last Admin: 08/08/17 10:33 Dose: 40 mg Sodium Chloride (Sodium Chloride 0.9%) 1,000 mls @ 100 mls/hr IV .Q10H [facility] Last Admin: 08/08/17 17:58 Dose: 100 mls/hr Piperacillin Sod/Tazobactam Sod (Zosyn 3.375 In Ns 100ml) 100 mls @ 200 mls/hr IVPB Q6 [facility] PRN Reason: Protocol Stop: 08/16/17 12:01 Last Admin: 08/09/17 06:49 Dose: 200 mls/hr Morphine Sulfate (Morphine) 1 mg IVP Q4H PRN PRN Reason: Pain, moderate (4-7) Ondansetron HCl (Zofran Inj) 4 mg IVP Q6H PRN PRN Reason: Nausea/Vomiting - Labs Labs: 08/09/17 06:30 08/09/17 06:30 PT 14.8 SECONDS (9.4-12.5) H 08/09/17 06:30 INR 1.28 (0.93-1.08) H 08/09/17 06:30 APTT 34.5 Seconds (25.1-36.5) 08/09/17 06:30 - Constitutional Appears: Well, No Acute Distress - Head Exam Head Exam: ATRAUMATIC, NORMOCEPHALIC - Eye Exam Eye Exam: Normal appearance - ENT Exam ENT Exam: Mucous Membranes Moist - Respiratory Exam Respiratory Exam: Clear to Ausculation Bilateral, NORMAL BREATHING PATTERN. absent: Rhonchi, Wheezes, Respiratory Distress - Cardiovascular Exam Cardiovascular Exam: REGULAR RHYTHM, +S1, +S2 - GI/Abdominal Exam GI & Abdominal Exam: Soft, Normal Bowel Sounds. absent: Guarding, Rigid, Tenderness - Extremities Exam Extremities Exam: absent: Joint Swelling, Pedal Edema - Neurological Exam Neurological Exam: Alert, Awake, Oriented x3 - Psychiatric Exam Psychiatric exam: Normal Affect, Normal Mood - Skin Skin Exam: Dry, Intact, Normal Color, Warm Assessment and Plan - Assessment and Plan (Free Text) Assessment: This is a 36yM with diverticulitis s/p colonoscopy and abdominal pain. 1. Diverticulitis with rectosigmoid stricture Plan: -Continue pain control and antiemetics -NPO for surgery -IV abx as per surgery, continue zosyn -resection for today? -Ct reviewed with no signs of perforation or abscess -Will sign off, f/u with Dr. Akins as a oupt, post op D/w dr. Katz <Kenney Katz - Last Filed: 08/09/17 09:17> Objective - Vital Signs/Intake and Output Vital Signs (last 24 hours): Temp Pulse Resp BP Pulse Ox 98 F 63 20 116/81 98 08/09/17 07:30 08/09/17 07:30 08/09/17 07:30 08/09/17 07:30 08/09/17 07:30 - Medications Medications: Current Medications Enoxaparin Sodium (Lovenox) 40 mg SC DAILY [facility] PRN Reason: Protocol Last Admin: 08/08/17 10:33 Dose: 40 mg Sodium Chloride (Sodium Chloride 0.9%) 1,000 mls @ 100 mls/hr IV .Q10H [facility] Last Admin: 08/08/17 17:58 Dose: 100 mls/hr Piperacillin Sod/Tazobactam Sod (Zosyn 3.375 In Ns 100ml) 100 mls @ 200 mls/hr IVPB Q6 [facility] PRN Reason: Protocol Stop: 08/16/17 12:01 Last Admin: 08/09/17 06:49 Dose: 200 mls/hr Morphine Sulfate (Morphine) 1 mg IVP Q4H PRN PRN Reason: Pain, moderate (4-7) Ondansetron HCl (Zofran Inj) 4 mg IVP Q6H PRN PRN Reason: Nausea/Vomiting - Labs Labs: 08/09/17 06:30 08/09/17 06:30 PT 14.8 SECONDS (9.4-12.5) H 08/09/17 06:30 INR 1.28 (0.93-1.08) H 08/09/17 06:30 APTT 34.5 Seconds (25.1-36.5) 08/09/17 06:30 Attending/Attestation - Attestation I have personally seen and examined this patient.: Yes I have fully participated in the care of the patient.: Yes I have reviewed all pertinent clinical information, including history, physical exam and plan: Yes Notes (Text): 08/09/17 09:15 I have seen and examined patient with GI fellow. No acute events overnight, he is seen sitting in chair at bedside appears quite comfortable. He denies abdominal pain, nausea, vomiting, fever/chills. He is NPO for planned operative procedure today. Review of vitals from this morning are normal. History of recurrent diverticulitis Sigmoid stricture - NPO - Continue with antibiotic therapy - Pain control - Patient for planned operative intervention for sigmoid stricture, follow up surgical recommendations - Patient would require follow up colonoscopy 3-4 months following surgery given prior incomplete procedure. No further planned GI interventions, will sign off case. Please reconsult as necessary, thank you.
--- NOTE | 2017-08-09 09:29 | PN ---
DATE: 08/08/2017 SUBJECTIVE: Samson Faust is here with abdominal pain, diverticulitis, nauseousness, also a rectosigmoid stricture that need surgery and low potassium and trying to keep fluids out of his stomach and his intestines. So, presurgical plan also is a diverticulitis and is on IV antibiotics, making him n.p.o. except ice chips. wants to eat, because it makes him nauseous, he wants surgery as soon as possible and surgery done tomorrow for this rectosigmoid stricture. PHYSICAL EXAMINATION: GENERAL: He is resting comfortably in bed, some abdominal pain from time to time, also some nauseousness. VITAL SIGNS: He has a 98.8 temperature, 56 pulse, 125/75 blood pressure, 20 respiratory rate, 96% O2 sat on room air. HEENT: Head is atraumatic, normocephalic. HEART: Regular rate. LUNGS: Decreased breath sounds, but clear. ABDOMEN: Soft, decreased bowel sounds, mildly distended. No guarding. No rebound. Decreased bowel sounds. EXTREMITIES: No edema. LABORATORY DATA: He has a 5.1 white count, 13.9 hemoglobin, 42.8 hematocrit with a 266 platelets. He has a 142 sodium, potassium 3.6, BUN 5, creatinine 0.9, GFR is greater than 60. Sugar is 102. Calcium is 9.2, total bilirubin is 0.7. AST is 23, ALT is 31, alk phos is 48, total protein is 6.6, albumin is 3.4. He is being seen by Surgery and GI, Infectious Disease. We will continue with aggressive treatment and care, also n.p.o. except ice chips. Hopefully, we will get him to the surgery soon rather than later. I discussed at length with the nurse and the patient and will after the surgeon. Fabio Shea DO MTDD
[2017-08-09] MEDS: Sodium Chloride 0.9% 1,000 ML IV SCH (11:13)
[2017-08-09] MEDS: Enoxaparin 40 mg Syringe SC SCH (11:13)
--- NOTE | 2017-08-09 13:50 | PN ---
DATE: 08/09/2017 SUBJECTIVE: I saw him resting comfortably in bed. His pain is very much controlled. He has a stricture in the rectosigmoid area and he has had a lot of pain from diverticulitis and the recommendation is surgery to resect that area hoping it gets done today and he is waiting for surgery, also is n.p.o. He is on morphine, IV fluid, Zofran, and Zosyn. PHYSICAL EXAMINATION: VITAL SIGNS: He has a 98.3 temperature, 83 pulse, 109/61 blood pressure, 20 respiratory rate, 96% O2 sat on room air. HEENT: Head is atraumatic and normocephalic. HEART: Regular rate. LUNGS: Clear to auscultation. ABDOMEN: Soft. Positive bowel sounds. Nontender. EXTREMITIES: No edema. cleaned out. LABORATORY DATA: He has 4.2 white count, 14.5 hemoglobin, 42.9 hematocrit with 260 platelets. INR is 1.28. Sodium is 142. BUN 8, creatinine 0.9. GFR is greater than 60. Sugar is 82. Calcium is 9.5. Total bilirubin is 0.7, AST is 19, ALT is 27, alkaline phosphatase is 50. Total protein 6.7. We prepared for surgery today, hoping to have it today. He was seen by GI, Infectious Disease, Surgery. Time today for sigmoid resection. He is n.p.o. Hopefully that will take place. He is on Zosyn for his diverticulitis and we will check his labs tomorrow. Fabio Shea DO MTDD
--- NOTE | 2017-08-09 15:38 | CP.PCM.PN ---
Subjective - Date & Time of Evaluation Date of Evaluation: 08/09/17 Time of Evaluation: 11:55 - Subjective Subjective: Still no BM's, mild left sided pain, no fevers. Objective - Vital Signs/Intake and Output Vital Signs (last 24 hours): Temp Pulse Resp BP Pulse Ox 98 F 63 20 116/81 98 08/09/17 07:30 08/09/17 07:30 08/09/17 07:30 08/09/17 07:30 08/09/17 07:30 Intake and Output: 08/09/17 08/09/17 06:59 18:59 Intake Total 120 Output Total 1200 Balance -1080 - Medications Medications: Current Medications Enoxaparin Sodium (Lovenox) 40 mg SC DAILY [facility] PRN Reason: Protocol Last Admin: 08/09/17 11:13 Dose: 40 mg Sodium Chloride (Sodium Chloride 0.9%) 1,000 mls @ 100 mls/hr IV .Q10H [facility] Last Admin: 08/09/17 11:13 Dose: 100 mls/hr Piperacillin Sod/Tazobactam Sod (Zosyn 3.375 In Ns 100ml) 100 mls @ 200 mls/hr IVPB Q6 [facility] PRN Reason: Protocol Stop: 08/16/17 12:01 Last Admin: 08/09/17 11:13 Dose: 200 mls/hr Lactated Ringer's (Lactated Ringer's) 1,000 mls @ 175 mls/hr IV .Q5H43M [facility] Morphine Sulfate (Morphine) 1 mg IVP Q4H PRN PRN Reason: Pain, moderate (4-7) Ondansetron HCl (Zofran Inj) 4 mg IVP Q6H PRN PRN Reason: Nausea/Vomiting - Labs Labs: 08/09/17 06:30 08/09/17 06:30 PT 14.8 SECONDS (9.4-12.5) H 08/09/17 06:30 INR 1.28 (0.93-1.08) H 08/09/17 06:30 APTT 34.5 Seconds (25.1-36.5) 08/09/17 06:30 - Constitutional Appears: Non-toxic - Head Exam Head Exam: NORMAL INSPECTION - Respiratory Exam Respiratory Exam: Decreased Breath Sounds - Cardiovascular Exam Cardiovascular Exam: +S1, +S2 - GI/Abdominal Exam GI & Abdominal Exam: Soft, Tenderness (LLQ area). absent: Guarding, Rigid, Rebound Assessment and Plan - Assessment and Plan (Free Text) Plan: Assessment acute sigmoid diverticulitis Plan Continue Zosyn day 3 and follow up plans for surgery
--- NOTE | 2017-08-09 21:13 | CARD ---
APPROVED REPORT EKG Measurement Heart [id number] <Conclusion> Marked sinus bradycardia with sinus arrhythmia Nonspecific T wave abnormality Abnormal ECG
[2017-08-10] MEDS ORDERED: Lactated Ringer's 1,000 ML IV SCH (00:05)
[2017-08-10] MEDS: Piperacillin/Tazobact 3.375 gm 100 ML IVPB SCH ×5 (00:41→23:54)
[2017-08-10 06:46] LABS: HEMOGLOBIN 14.4 g/dL (14.0-18.0); MEAN CELL VOLUME 82.4 fl (80.0-105.0); MEAN CORPUSCULAR HGB CONC 32.8 g/dl (31.0-37.0); MEAN PLATELET VOLUME 9.7 fl (7.0-11.0); RBC 5.33 10^6/uL (3.5-6.1); RED CELL DISTRIBUTION WIDTH 13.9 % (11.5-14.5); WHITE BLOOD COUNT 4.2 10^3/ul (4.5-11.0)
[2017-08-10 07:09] LABS: ALB/GLOB RATIO 1.1 (1.1-1.8); ALBUMIN 3.6 g/dL (3.0-4.8); ALT/SGPT 27 U/L (7-56); AST/SGOT 18 U/L (17-59); BLOOD UREA NITROGEN 6 mg/dL (7-21); CALCIUM 9.4 mg/dL (8.4-10.5); GFR AFRICAN-AMERICAN > 60; GFR NON-AFRICAN AMERICAN > 60
[2017-08-10] MEDS ORDERED: Propofol 10 mg/ml Inj (20 ML) ONE (09:26)
[2017-08-10] MEDS ORDERED: Rocuronium 10 mg/ml (5 ml) ONE ×3 (09:27→10:57)
[2017-08-10] MEDS ORDERED: Succinylcholine 200 mg/10 ml Inj IV ONE (09:27)
[2017-08-10] MEDS ORDERED: Lidocaine 1% Inj (20ml) ONE (09:27)
[2017-08-10] MEDS ORDERED: Bupivacaine 0.25% Inj(30mL) ONE (12:23)
[2017-08-10] MEDS ORDERED: Neostigmine Methylsulfate 3mg/3ml Syringe IV ONE (12:28)
[2017-08-10] MEDS ORDERED: Liquid Adhesive TOP ONE (12:47)
--- NOTE | 2017-08-10 13:10 | PN ---
DATE: SUBJECTIVE: I saw him sitting up in bed. Waiting for surgery. I assumed he was going for surgery yesterday, I guessed they could not fit him in. He is waiting for this morning to go to Surgery. He is still awaiting they told him he is going to go. He is on lactated Ringers, Lovenox, morphine, IV fluids, Zofran and Zosyn. He is comfortable, a very little pain. He is very hungry. He is waiting for surgery. PHYSICAL EXAMINATION VITAL SIGNS: He has 98 temperature, 85 pulse, 118/63 blood pressure, 20 respiratory rate, 96% O2 saturation on room air. HEENT: Head: Atraumatic, normocephalic. Throat is moist. NECK: Supple. HEART: Regular rate and rhythm. LUNGS: Clear to auscultation. ABDOMEN: Soft, nontender. Positive bowel sounds. No guarding, no rebound. No CVA tenderness. EXTREMITIES: No edema. LABORATORY DATA: He has a 4.2 white count, 14.4 hemoglobin, 43.9 hematocrit with 286,000 platelets. He has a 146 sodium, potassium 3.7, BUN 6, creatinine 0.9. GFR is greater than 60, sugar is 88. Calcium is 9.4. Total bilirubin is 0.9. AST is 18, ALT is 27, alkaline phosphatase is 45. Total protein 6.8. Albumin is 3.6. ASSESSMENT AND PLAN: He is being seen by Infectious Disease, GI, Surgery. He is here for acute diverticulitis; abdominal pain, which showed rectosigmoid stricture; low potassium and now hopefully, resection and he is here for acute sigmoid diverticulitis and going to Surgery to have a colon resection. Hopefully, that will be done this morning. Fabio Shea DO MTDD
[2017-08-10] MEDS ORDERED: Morphine PCA 1 mg/ml (30ml) 30 ML IV PRN (13:40)
[2017-08-10] MEDS ORDERED: HYDROmorphone 0.5 mg/0.5 ml ISec IVP PRN (13:40)
--- NOTE | 2017-08-10 13:51 | PCM.SURG1 ---
Surgeon's Initial Post Op Note - Surgeon's Notes Surgeon: Dr. Wells Food Products Tester: Dr. Lo PGY3 Type of Anesthesia: General Endo Pre-Operative Diagnosis: sigmoid diverticulitis, stricture Operative Findings: colon mass Post-Operative Diagnosis: sigmoid diverticulitis, colon mass, sigmoid stricture Operation Performed: exploratory laparotomy, low anterior resection with creation of end colostomy, appendectomy, insertion of bilateral ureteral stents , On-Q insertion Specimen/Specimens Removed: sigmoid colon, appendix Estimated Blood Loss: EBL {In ML}: 50 Blood Products Given: N/A Drains Used: No Drains Post-Op Condition: Good Date of Surgery/Procedure: 08/10/17 Time of Surgery/Procedure: 13:51
[2017-08-10] MEDS ORDERED: HYDROmorphone 0.5 mg/0.5 ml ISec ONE ×2 (14:05→15:03)
[2017-08-10] MEDS ORDERED: HYDROmorphone 0.5 mg/0.5 ml ISec IVP ONE (15:01)
[2017-08-10] MEDS: Morphine 2 mg/ml ISec IVP PRN ×2 (16:01→20:21)
[2017-08-10] MEDS ORDERED: Morphine 2 mg/ml ISec IVP STA (18:13)
[2017-08-10] MEDS: Lactated Ringer's 1,000 ML IV SCH (21:14)
--- NOTE | 2017-08-10 22:11 | OP ---
PROCEDURE DATE: 08/10/2017 GENITOURINARY OPERATIVE REPORT PREOPERATIVE DIAGNOSIS: Diverticulitis. POSTOPERATIVE DIAGNOSIS: Diverticulitis.. PROCEDURES PERFORMED: Cystoscopy with insertion of ureteral catheters. SURGEON: Bartolome Alegria MD. ANESTHESIA: General. SPECIMENS: There were none. DRAINS: Three 5-Moz[place]ican ureteral catheters and an Tabitha Teixeira catheter. COMPLICATIONS: There were none. OPERATIVE FINDINGS: After informed consent was obtained, patient was taken to the operating room and placed in the operating table. General anesthesia was then administered. The patient was then placed in the dorsal lithotomy position and prepped and draped in usual sterile fashion. A 22-Mozambican cystoscope was placed in the patient's urethra, advanced proximally under direct vision until the bladder was entered. A full survey inspection of bladder was then performed which revealed no stones, tumors, or foreign bodies. 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 Patient is scheduled to have a sigmoid resection for diverticulitis and General Surgery, Dr. José Antonio Wells, had requested placement of ureteral catheters. At this point, 5-Mozambican olive tip ureteral catheters were obtained given the duplication. A ureteral catheter was placed into one of the left ureteral orifices and advanced proximally under direct vision until it was in at the appropriate depth. The second ureteral catheter was then placed in the duplicated orifice on the left. This catheter was also advanced easily until it was in at the appropriate position. 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 At this point, after discussing with Dr. Wells, one ureteral catheter was placed on the right side. Again, under direct vision, a 5-Moz[place]ican olive tip catheter was inserted into the orifice which was the lower orifice on the right which would be to the upper pole moiety. The ureteral catheter was advanced proximally without difficulty until it was in at the appropriate depth. At this point, the procedure was completed, the bladder was drained. The cystoscope was removed. An 18-Moz[place] Tabitha Teixeira catheter was passed and all three ureteral catheters were attached to the Tabitha Teixeira catheter, which was left to straight drainage. Plan will be to remove all the ureteral catheters and change the Teixeira catheter at the end of the surgery. Patient tolerated the procedure well. He was returned to the supine position. He was left in the operating room under general anesthesia in order to undergo a colon resection by Dr. Wells. Please refer to Dr. Wells's dictation for the remainder of the operative report. Bartolome Alegria MD
[2017-08-11] MEDS: Lactated Ringer's 1,000 ML IV SCH ×2 (00:25→06:16)
[2017-08-11] MEDS: Morphine 2 mg/ml ISec IVP PRN (04:17)
[2017-08-11] MEDS: Piperacillin/Tazobact 3.375 gm 100 ML IVPB SCH ×4 (05:07→23:01)
[2017-08-11 06:58] LABS: MEAN CELL VOLUME 82.5 fl (80.0-105.0); MEAN CORPUSCULAR HEMOGLOBIN 26.9 pg (25.0-35.0); MEAN CORPUSCULAR HGB CONC 32.6 g/dl (31.0-37.0); MEAN PLATELET VOLUME 9.5 fl (7.0-11.0); RBC 5.21 10^6/uL (3.5-6.1); RED CELL DISTRIBUTION WIDTH 14.3 % (11.5-14.5); WHITE BLOOD COUNT 14.2 10^3/ul (4.5-11.0)
[2017-08-11 07:13] LABS: ALB/GLOB RATIO 1.1 (1.1-1.8); ALBUMIN 3.3 g/dL (3.0-4.8); ALT/SGPT 27 U/L (7-56); AST/SGOT 23 U/L (17-59); BLOOD UREA NITROGEN 8 mg/dL (7-21); CALCIUM 8.9 mg/dL (8.4-10.5); GFR AFRICAN-AMERICAN > 60; GFR NON-AFRICAN AMERICAN > 60
[2017-08-11] MEDS ORDERED: HYDROmorphone 2 mg/ml ISec IVP PRN (07:41)
[2017-08-11] MEDS: Enoxaparin 40 mg Syringe SC SCH (09:45)
--- NOTE | 2017-08-11 12:02 | CP.PCM.PN ---
Subjective - Date & Time of Evaluation Date of Evaluation: 08/11/17 Time of Evaluation: 11:58 - Subjective Subjective: General Surgery progress note for Dr. Wells Patient seen and examined at bedside. Patient still complaining about pain, doing well after procedure yesterday. Objective - Vital Signs/Intake and Output Vital Signs (last 24 hours): Temp Pulse Resp BP Pulse Ox 98.8 F 81 20 121/75 96 08/11/17 07:51 08/11/17 07:51 08/11/17 07:51 08/11/17 07:51 08/11/17 07:51 Intake and Output: 08/11/17 08/11/17 06:59 18:59 Intake Total 420 Output Total 1650 Balance -1230 - Medications Medications: Current Medications Enoxaparin Sodium (Lovenox) 40 mg SC DAILY [facility] PRN Reason: Protocol Last Admin: 08/11/17 09:45 Dose: 40 mg Piperacillin Sod/Tazobactam Sod (Zosyn 3.375 In Ns 100ml) 100 mls @ 200 mls/hr IVPB Q6 [facility] PRN Reason: Protocol Stop: 08/16/17 12:01 Last Admin: 08/11/17 05:07 Dose: 200 mls/hr Lactated Ringer's (Lactated Ringer's) 1,000 mls @ 150 mls/hr IV .Q6H40M [facility] Last Admin: 08/11/17 06:16 Dose: Not Given Morphine Sulfate (Morphine) 4 mg IVP Q4H PRN PRN Reason: Pain, severe (8-10) Last Admin: 08/11/17 04:17 Dose: 4 mg Morphine Sulfate (Morphine) 10 mg IV Q3H PRN PRN Reason: Pain, severe (8-10) Last Admin: 08/11/17 09:45 Dose: 10 mg Ondansetron HCl (Zofran Inj) 4 mg IVP ONCE PRN PRN Reason: Nausea/Vomiting Ondansetron HCl (Zofran Inj) 4 mg IVP Q4H PRN PRN Reason: Nausea/Vomiting - Labs Labs: 08/11/17 06:20 08/11/17 06:20 PT 14.8 SECONDS (9.4-12.5) H 08/09/17 06:30 INR 1.28 (0.93-1.08) H 08/09/17 06:30 APTT 34.5 Seconds (25.1-36.5) 08/09/17 06:30 - Constitutional Appears: Well - Head Exam Head Exam: ATRAUMATIC, NORMAL INSPECTION, NORMOCEPHALIC - Eye Exam Eye Exam: EOMI, Normal appearance, PERRL Pupil Exam: NORMAL ACCOMODATION, PERRL - ENT Exam ENT Exam: Mucous Membranes Moist, Normal Exam - Neck Exam Neck Exam: Full ROM, Normal Inspection. absent: Lymphadenopathy - Respiratory Exam Respiratory Exam: Clear to Ausculation Bilateral, NORMAL BREATHING PATTERN - Cardiovascular Exam Cardiovascular Exam: REGULAR RHYTHM, +S1, +S2. absent: Murmur - GI/Abdominal Exam GI & Abdominal Exam: Soft, Normal Bowel Sounds. absent: Tenderness - Extremities Exam Extremities Exam: Full ROM, Normal Capillary Refill, Normal Inspection. 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 Wells
[2017-08-11] MEDS: Potassium Ch 20mEq in D5-1/2NS 1,000 ML IV SCH (15:26)
--- NOTE | 2017-08-11 17:33 | CP.PCM.PN ---
Subjective - Date & Time of Evaluation Date of Evaluation: 08/10/17 Time of Evaluation: 11:20 - Subjective Subjective: No fevers, not in distress, had surgery yesterday, still with abdominal pain. Objective - Vital Signs/Intake and Output Vital Signs (last 24 hours): Temp Pulse Resp BP Pulse Ox 98.3 F 61 18 144/85 99 08/10/17 08:35 08/10/17 08:35 08/10/17 08:35 08/10/17 08:35 08/10/17 08:35 Intake and Output: 08/10/17 08/10/17 06:59 18:59 Output Total 1200 Balance -1200 - Medications Medications: Current Medications Enoxaparin Sodium (Lovenox) 40 mg SC DAILY [facility] PRN Reason: Protocol Last Admin: 08/09/17 11:13 Dose: 40 mg Sodium Chloride (Sodium Chloride 0.9%) 1,000 mls @ 100 mls/hr IV .Q10H [facility] Last Admin: 08/09/17 11:13 Dose: 100 mls/hr Piperacillin Sod/Tazobactam Sod (Zosyn 3.375 In Ns 100ml) 100 mls @ 200 mls/hr IVPB Q6 [facility] PRN Reason: Protocol Stop: 08/16/17 12:01 Last Admin: 08/10/17 06:03 Dose: 200 mls/hr Lactated Ringer's (Lactated Ringer's) 1,000 mls @ 175 mls/hr IV .[id number] [facility] Last Admin: 08/10/17 00:41 Dose: 175 mls/hr Morphine Sulfate (Morphine) 1 mg IVP Q4H PRN PRN Reason: Pain, moderate (4-7) Ondansetron HCl (Zofran Inj) 4 mg IVP Q6H PRN PRN Reason: Nausea/Vomiting - Labs Labs: 08/10/17 05:30 08/10/17 05:30 PT 14.8 SECONDS (9.4-12.5) H 08/09/17 06:30 INR 1.28 (0.93-1.08) H 08/09/17 06:30 APTT 34.5 Seconds (25.1-36.5) 08/09/17 06:30 - Constitutional Appears: Non-toxic, Chronically Ill - Head Exam Head Exam: NORMAL INSPECTION - ENT Exam ENT Exam: Mucous Membranes Moist - Neck Exam Neck Exam: absent: Meningismus - Respiratory Exam Respiratory Exam: Decreased Breath Sounds - Cardiovascular Exam Cardiovascular Exam: +S1, +S2 - GI/Abdominal Exam GI & Abdominal Exam: Soft, Tenderness (mild, LLQ). absent: Firm, Rigid, Rebound Assessment and Plan - Assessment and Plan (Free Text) Plan: Assessment acute sigmoid diverticulitis, S/P exploratory laparotomy, low anterior resection , end colostomy, appendectomy, bilateral ureteral stent placement POD #1 Plan Continue Zosyn day 4 and continue to monitor clinically
[2017-08-12] MEDS: Potassium Ch 20mEq in D5-1/2NS 1,000 ML IV SCH ×4 (02:54→21:05)
[2017-08-12] MEDS: Oxycodone/Acetaminophen 10/325 mg Tab PO PRN ×2 (03:25→21:47)
[2017-08-12] MEDS: Piperacillin/Tazobact 3.375 gm 100 ML IVPB SCH ×4 (05:56→23:15)
[2017-08-12 07:13] LABS: MEAN CELL VOLUME 83.5 fl (80.0-105.0); MEAN CORPUSCULAR HEMOGLOBIN 26.7 pg (25.0-35.0); MEAN PLATELET VOLUME 9.2 fl (7.0-11.0); RBC 4.86 10^6/uL (3.5-6.1); RED CELL DISTRIBUTION WIDTH 14.4 % (11.5-14.5); WHITE BLOOD COUNT 10.8 10^3/ul (4.5-11.0)
[2017-08-12 07:23] LABS: ALBUMIN 3.1 g/dL (3.0-4.8); ALT/SGPT 29 U/L (7-56); AST/SGOT 25 U/L (17-59); BLOOD UREA NITROGEN 8 mg/dL (7-21); CALCIUM 8.8 mg/dL (8.4-10.5); GFR AFRICAN-AMERICAN > 60; GFR NON-AFRICAN AMERICAN > 60
--- NOTE | 2017-08-12 08:02 | PN ---
DATE: 08/11/2017 SUBJECTIVE: He went to surgery yesterday and ended up having a colon resection with a colostomy due to a stricture and a colon mass. They were not expecting the mass. He is resting in bed. He is in a lot of pain. He tells me the morphine did not cut in, so I added some Dilaudid. PHYSICAL EXAMINATION: VITAL SIGNS: He has a 99.2 temp, 88 pulse, 125/79 blood pressure, 20 respiratory rate, 95% O2 sat on nasal cannula. HEENT: Head is atraumatic, normocephalic. He is very stressed, pretty much in pain. HEART: Regular rate. LUNGS: Decreased breath sounds bilaterally, but for the most part clear. ABDOMEN: No bowel sounds. He is bandaged. EXTREMITIES: No edema. MEDICATIONS: He is currently on Dilaudid, lactated Ringer's, Lovenox, morphine, MACHINE FITTER pump, Zofran, Zosyn. LABORATORY DATA: He has a 40.2 white count after the surgery, 14 hemoglobin, 43.0 hematocrit with a 292 platelets. INR is 1.28. He has a 142 sodium, potassium 3.9, BUN 8, creatinine is 1.1, GFR is greater than 60, sugar is 120, calcium is 8.9, total bili is 1.1, AST is 23, ALT is 27, alk phos 44, total protein 6.3. ASSESSMENT AND PLAN: He has been seen by Surgery, Infectious Disease, Gastroenterology. He is status post colon resection with colostomy secondary to stricture and colon mass. We will continue aggressive treatment and care. Get labs tomorrow. Lots of pain medications. Fabio Shea DO
--- NOTE | 2017-08-12 09:40 | CP.PCM.PN ---
Subjective - Date & Time of Evaluation Date of Evaluation: 08/12/17 Time of Evaluation: 09:25 - Subjective Subjective: General Surgery progress note for Dr. Wells Patient seen and examined at bedside. Patient's pain well controlled with Toradol. Patient is tolerating clear liquid diet. Objective - Vital Signs/Intake and Output Vital Signs (last 24 hours): Temp Pulse Resp BP Pulse Ox 98.6 F 81 20 135/82 94 L 08/12/17 07:30 08/12/17 07:30 08/12/17 07:30 08/12/17 07:30 08/12/17 07:30 Intake and Output: 08/12/17 08/12/17 06:59 18:59 Intake Total 1100 Output Total 860 Balance 240 - Medications Medications: Current Medications Enoxaparin Sodium (Lovenox) 40 mg SC DAILY [facility] PRN Reason: Protocol Last Admin: 08/11/17 09:45 Dose: 40 mg Piperacillin Sod/Tazobactam Sod (Zosyn 3.375 In Ns 100ml) 100 mls @ 200 mls/hr IVPB Q6 [facility] PRN Reason: Protocol Stop: 08/16/17 12:01 Last Admin: 08/12/17 05:56 Dose: 200 mls/hr Potassium Chloride/Dextrose/Sod Cl (Potassium Chl 20 Meq In D5-1/2ns) 1,000 mls @ 125 mls/hr IV .Q8H [facility] Last Admin: 08/12/17 02:54 Dose: 125 mls/hr Ketorolac Tromethamine (Toradol) 30 mg IVP Q6 [facility] Morphine Sulfate (Morphine) 10 mg IV Q3H PRN PRN Reason: Pain, severe (8-10) Last Admin: 08/11/17 17:43 Dose: 10 mg Ondansetron HCl (Zofran Inj) 4 mg IVP Q4H PRN PRN Reason: Nausea/Vomiting Oxycodone/Acetaminophen (Percocet 10/325 Mg Tab) 1 tab PO Q4H PRN PRN Reason: Pain, moderate (4-7) Last Admin: 08/12/17 03:25 Dose: 1 tab - Labs Labs: 08/12/17 06:20 08/12/17 06:20 PT 14.8 SECONDS (9.4-12.5) H 02/19/18 06:30 INR 1.28 (0.93-1.08) H 08/09/17 06:30 APTT 34.5 Seconds (25.1-36.5) 08/09/17 06:30 - Constitutional Appears: Well - Head Exam Head Exam: ATRAUMATIC, NORMAL INSPECTION, NORMOCEPHALIC - Eye Exam Eye Exam: EOMI, Normal appearance, PERRL Pupil Exam: NORMAL ACCOMODATION, PERRL - ENT Exam ENT Exam: Mucous Membranes Moist, Normal Exam - Neck Exam Neck Exam: Full ROM, Normal Inspection. absent: Lymphadenopathy - Respiratory Exam Respiratory Exam: Clear to Ausculation Bilateral, NORMAL BREATHING PATTERN - Cardiovascular Exam Cardiovascular Exam: REGULAR RHYTHM, +S1, +S2. absent: Murmur - GI/Abdominal Exam GI & Abdominal Exam: Soft, Normal Bowel Sounds. absent: Tenderness - Extremities Exam Extremities Exam: Full ROM, Normal Capillary Refill, Normal Inspection. absent : Joint Swelling, Pedal Edema - Back Exam Back Exam: NORMAL INSPECTION - Neurological Exam Neurological Exam: Alert, Awake, CN II-XII Intact, Normal Gait, Oriented x3 - Psychiatric Exam Psychiatric exam: Normal Affect, Normal Mood - Skin Skin Exam: Dry, Intact, Normal Color, Warm Assessment and Plan - Assessment and Plan (Free Text) Assessment: 36 y/o male with hx of diverticulitis and stricture -CLD today -please get the patient oob today -patient placed on toradol -f/u colon mass pathology
[2017-08-12] MEDS: Enoxaparin 40 mg Syringe SC SCH (11:17)
--- NOTE | 2017-08-12 12:33 | CP.PCM.PN ---
Subjective - Date & Time of Evaluation Date of Evaluation: 08/12/17 Time of Evaluation: 11:20 - Subjective Subjective: Less abdominal pain, no fevers, tolerating clear liquids. Objective - Vital Signs/Intake and Output Vital Signs (last 24 hours): Temp Pulse Resp BP Pulse Ox 98.6 F 81 20 135/82 94 L 08/12/17 07:30 08/12/17 07:30 08/12/17 07:30 08/12/17 07:30 08/12/17 07:30 Intake and Output: 08/12/17 08/12/17 06:59 18:59 Intake Total 1100 Output Total 860 Balance 240 - Medications Medications: Current Medications Enoxaparin Sodium (Lovenox) 40 mg SC DAILY [facility] PRN Reason: Protocol Last Admin: 08/11/17 09:45 Dose: 40 mg Piperacillin Sod/Tazobactam Sod (Zosyn 3.375 In Ns 100ml) 100 mls @ 200 mls/hr IVPB Q6 [facility] PRN Reason: Protocol Stop: 08/16/17 12:01 Last Admin: 08/12/17 05:56 Dose: 200 mls/hr Potassium Chloride/Dextrose/Sod Cl (Potassium Chl 20 Meq In D5-1/2ns) 1,000 mls @ 125 mls/hr IV .Q8H [facility] Last Admin: 08/12/17 02:54 Dose: 125 mls/hr Ketorolac Tromethamine (Toradol) 30 mg IVP Q6 [facility] Morphine Sulfate (Morphine) 10 mg IV Q3H PRN PRN Reason: Pain, severe (8-10) Last Admin: 08/11/17 17:43 Dose: 10 mg Ondansetron HCl (Zofran Inj) 4 mg IVP Q4H PRN PRN Reason: Nausea/Vomiting Oxycodone/Acetaminophen (Percocet 10/325 Mg Tab) 1 tab PO Q4H PRN PRN Reason: Pain, moderate (4-7) Last Admin: 08/12/17 03:25 Dose: 1 tab - Labs Labs: 08/12/17 06:20 08/12/17 06:20 PT 14.8 SECONDS (9.4-12.5) H 08/09/17 06:30 INR 1.28 (0.93-1.08) H 08/09/17 06:30 APTT 34.5 Seconds (25.1-36.5) 08/09/17 06:30 - Constitutional Appears: Non-toxic - Head Exam Head Exam: NORMAL INSPECTION - ENT Exam ENT Exam: Mucous Membranes Moist - Neck Exam Neck Exam: absent: Meningismus - Respiratory Exam Respiratory Exam: Decreased Breath Sounds - Cardiovascular Exam Cardiovascular Exam: +S1, +S2 - GI/Abdominal Exam GI & Abdominal Exam: Soft. absent: Tenderness Assessment and Plan - Assessment and Plan (Free Text) Plan: Assessment acute sigmoid diverticulitis, S/P exploratory laparotomy, low anterior resection , end colostomy, appendectomy, bilateral ureteral stent placement POD #2 Plan Continue Zosyn day 5 and will continue to monitor clinically
--- NOTE | 2017-08-12 15:38 | PN ---
DATE: SUBJECTIVE: I saw him resting comfortably in bed. He desperately wants to get out of bed to a chair. He had status post colon resection with stricture of the colon and a mass, now he has a colostomy. He is on Lovenox, morphine, Percocet, potassium replacement, Toradol, tramadol and Zosyn. He resting in bed, wants to get out of bed to chair. I spoke to the nurse and physical therapy this morning to do that this morning. PHYSICAL EXAMINATION: VITAL SIGNS: He has a 98.6 temp, 81 pulse, 135/82 blood pressure, 20 respiratory rate, 95% O2 sat on room air. HEENT: His head is atraumatic, normocephalic. HEART: Regular rate. LUNGS: Decreased breath sounds with fair motion. ABDOMEN: Bandaged. No bowel sounds. . EXTREMITIES: No edema. MEDICATIONS: He is currently on Lovenox, morphine, Percocet, potassium, Toradol, Zosyn and Zofran. LABORATORY DATA: He has a 10.8 white count , 13 hemoglobin, 40.6 hematocrit with 260 platelets. INR is 1.28. He has a 141 sodium, potassium 3.7, BUN is 8, creatinine GFR is greater than 60, sugar is 130, calcium is 8.8, total bili is 0.88, AST is 25, ALT is , alk phos 42, total protein 6.1. PLAN: He is being seen by GI, Infectious Disease and Surgery. He is going to get antibiotics. He has acute sigmoid diverticulitis, status post exploratory laparotomy, also colon mass with resection and colostomy, appendectomy, bilateral ureteral stent placement. He is on Zosyn day 4. We will get him out of bed to chair. Diet as per Surgery. We will check his labs tomorrow. Discussed at length with the patient and the nurse, answered many questions. Fabio Shea DO [email or web address]
[2017-08-13] MEDS: Potassium Ch 20mEq in D5-1/2NS 1,000 ML IV SCH ×5 (04:35→20:52)
[2017-08-13] MEDS: Oxycodone/Acetaminophen 10/325 mg Tab PO PRN ×3 (04:54→22:39)
[2017-08-13] MEDS: Piperacillin/Tazobact 3.375 gm 100 ML IVPB SCH ×2 (04:59→11:38)
[2017-08-13] MEDS ORDERED: Oxycodone/Acetaminophen 5/325 mg Tab PO PRN (07:25)
--- NOTE | 2017-08-13 07:32 | CP.PCM.PN ---
Subjective - Date & Time of Evaluation Date of Evaluation: 08/13/17 Time of Evaluation: 07:29 - Subjective Subjective: Surgery: Dr. Wells Patient doing well today. Pain controlled. Patient has been OOB to chair. Tolerating liquids. Denies n/v. Complains of mild epigastric discomfort. Feels like he has gas moving but no stool from ostomy yet. Objective - Vital Signs/Intake and Output Vital Signs (last 24 hours): Temp Pulse Resp BP Pulse Ox 99.2 F 85 18 128/82 96 08/12/17 16:00 08/12/17 16:00 08/12/17 16:00 08/12/17 16:00 08/12/17 16:00 Intake and Output: 08/13/17 08/13/17 06:59 18:59 Intake Total 700 Balance 700 - Medications Medications: Current Medications Enoxaparin Sodium (Lovenox) 40 mg SC DAILY [facility] PRN Reason: Protocol Last Admin: 08/12/17 11:17 Dose: 40 mg Famotidine (Pepcid) 20 mg PO 1000,2200 [facility] Piperacillin Sod/Tazobactam Sod (Zosyn 3.375 In Ns 100ml) 100 mls @ 200 mls/hr IVPB Q6 [facility] PRN Reason: Protocol Stop: 08/16/17 12:01 Last Admin: 08/13/17 04:59 Dose: 200 mls/hr Potassium Chloride/Dextrose/Sod Cl (Potassium Chl 20 Meq In D5-1/2ns) 1,000 mls @ 75 mls/hr IV .[id number] [facility] Morphine Sulfate (Morphine) 7 mg IV Q4H PRN PRN Reason: Pain, severe (8-10) Ondansetron HCl (Zofran Inj) 4 mg IVP Q4H PRN PRN Reason: Nausea/Vomiting Oxycodone/Acetaminophen (Percocet 5/325 Mg Tab) 1 tab PO Q4H PRN PRN Reason: Pain, moderate (4-7) Stop: 08/16/17 07:26 Oxycodone/Acetaminophen (Percocet 10/325 Mg Tab) 1 tab PO Q4H PRN PRN Reason: Pain, severe (8-10) - Labs Labs: 08/12/17 06:20 08/12/17 06:20 PT 14.8 SECONDS (9.4-12.5) H 08/09/17 06:30 INR 1.28 (0.93-1.08) H 08/09/17 06:30 APTT 34.5 Seconds (25.1-36.5) 08/09/17 06:30 - Constitutional Appears: Non-toxic, No Acute Distress - Head Exam Head Exam: ATRAUMATIC, NORMOCEPHALIC - Eye Exam Eye Exam: EOMI, Normal appearance - ENT Exam ENT Exam: Mucous Membranes Moist - Respiratory Exam Respiratory Exam: NORMAL BREATHING PATTERN. absent: Respiratory Distress - Cardiovascular Exam Cardiovascular Exam: REGULAR RHYTHM. absent: Tachycardia - GI/Abdominal Exam GI & Abdominal Exam: Soft, Tenderness (dominik-incisional, incision CDI w/ ostomy in LMQ, ostomy is pink, patent, not yet productive. bag contents with blood tinged bowel sweat only. ). 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 Cont IVFs, rate decreased to 75cc/hr -ok for lab holiday -will plan for reverse colostomy after at least 6 weeks post op -further recs per Dr. Russell Patrick PGY3
[2017-08-13 07:40] LABS: BASO # 0.02 K/mm3 (0.0-2.0); BASO % 0.2 % (0.0-3.0); EOS # 0.1 (0.0-0.7); EOS % 1.2 % (1.5-5.0); GRAN # 6.91 (1.4-6.5); GRAN % 82.4 % (50.0-68.0); HEMOGLOBIN 12.6 g/dL (14.0-18.0); LYMPH % 11.9 % (22.0-35.0); MEAN CELL VOLUME 83.3 fl (80.0-105.0); MEAN CORPUSCULAR HEMOGLOBIN 26.6 pg (25.0-35.0); MEAN PLATELET VOLUME 8.9 fl (7.0-11.0); MONO # 0.4 (0.1-0.6); MONO % 4.3 % (1.0-6.0); RBC 4.73 10^6/uL (3.5-6.1); RED CELL DISTRIBUTION WIDTH 14.4 % (11.5-14.5); WHITE BLOOD COUNT 8.4 10^3/ul (4.5-11.0)
[2017-08-13 07:51] LABS: ALBUMIN 2.9 g/dL (3.0-4.8); ALT/SGPT 32 U/L (7-56); AST/SGOT 24 U/L (17-59); BLOOD UREA NITROGEN 6 mg/dL (7-21); CALCIUM 8.8 mg/dL (8.4-10.5); GFR AFRICAN-AMERICAN > 60; GFR NON-AFRICAN AMERICAN > 60
[2017-08-13 08:18] VITALS: BP 138/85; PULSE 82; RESP 20; TEMP 98.4; O2SAT 94
--- NOTE | 2017-08-13 09:46 | PN ---
DATE: SUBJECTIVE: I saw him resting in his bed. He has got a pillow over his abdomen. He got out of bed for maybe 10 to 15 minutes yesterday, which I thought was great. He had colon resection and a colostomy placed for colonic mass. He is eating the Jell-O and the liquids. He is passing some gas. Some abdominal pains where the surgical site is. He is on pain meds. He is on Lovenox, morphine, Pepcid, Percocet, potassium replacement, Zofran and Zosyn. PHYSICAL EXAMINATION: VITAL SIGNS: 98.4 temp, 82 pulse, 138/85 blood pressure, 20 respiratory rate, 94% O2 sat on room air. HEENT: His head is atraumatic, normocephalic. HEART: Regular rate. LUNS: Decreased breath sounds, but clear. ABDOMEN: Decreased bowel sounds were present. Positive colostomy. EXTREMITIES: No edema. LABORATORY DATA: He has 8.4 white count, the best it has been since the surgery; 12.6 hemoglobin; 39.4 hematocrit and 255 platelets. He has a 143 sodium, potassium 3.8, BUN 6, creatinine 0.9, GFR is greater than 60, sugar is 133, calcium is 8.8, total bili is 0.7, AST is 24, ALT is 32, alk phos 41, total protein 6. ASSESSMENT AND PLAN: He is being seen by Surgery, Infectious Disease, Urology. He had acute sigmoid diverticulitis and stricture, status post exploratory laparotomy with low anterior resection and colostomy, appendectomy, bilateral ureteral stent placement. Continue with intravenous antibiotics, postoperative care. We will check his labs tomorrow. Fabio Shea DO
[2017-08-13] MEDS: Enoxaparin 40 mg Syringe SC SCH (10:35)
--- NOTE | 2017-08-13 14:05 | CP.PCM.PN ---
Subjective - Date & Time of Evaluation Date of Evaluation: 08/13/17 Time of Evaluation: 10:50 - Subjective Subjective: Still with abdominal pain but slowly improving, tolerating liquid diet, passing gas but no stools yet. Objective - Vital Signs/Intake and Output Vital Signs (last 24 hours): Temp Pulse Resp BP Pulse Ox 98.4 F 82 20 138/85 94 L 08/13/17 07:30 08/13/17 07:30 08/13/17 07:30 08/13/17 07:30 08/13/17 07:30 Intake and Output: 08/13/17 08/13/17 06:59 18:59 Intake Total 700 Output Total 300 Balance 700 -300 - Medications Medications: Current Medications Enoxaparin Sodium (Lovenox) 40 mg SC DAILY [facility] PRN Reason: Protocol Last Admin: 08/13/17 10:35 Dose: 40 mg Famotidine (Pepcid) 20 mg PO 1000,2200 [facility] Last Admin: 08/13/17 10:36 Dose: 20 mg Piperacillin Sod/Tazobactam Sod (Zosyn 3.375 In Ns 100ml) 100 mls @ 200 mls/hr IVPB Q6 [facility] PRN Reason: Protocol Stop: 08/16/17 12:01 Last Admin: 08/13/17 04:59 Dose: 200 mls/hr Potassium Chloride/Dextrose/Sod Cl (Potassium Chl 20 Meq In D5-1/2ns) 1,000 mls @ 75 mls/hr IV .[id number] [facility] Last Admin: 08/13/17 10:33 Dose: 75 mls/hr Morphine Sulfate (Morphine) 7 mg IV Q4H PRN PRN Reason: Pain, severe (8-10) Ondansetron HCl (Zofran Inj) 4 mg IVP Q4H PRN PRN Reason: Nausea/Vomiting Oxycodone/Acetaminophen (Percocet 5/325 Mg Tab) 1 tab PO Q4H PRN PRN Reason: Pain, moderate (4-7) Stop: 08/16/17 07:26 Oxycodone/Acetaminophen (Percocet 10/325 Mg Tab) 1 tab PO Q4H PRN PRN Reason: Pain, severe (8-10) - Labs Labs: 08/13/17 07:00 08/13/17 07:00 PT 14.8 SECONDS (9.4-12.5) H 08/09/17 06:30 INR 1.28 (0.93-1.08) H 08/09/17 06:30 APTT 34.5 Seconds (25.1-36.5) 08/09/17 06:30 - Constitutional Appears: Non-toxic, Chronically Ill - Head Exam Head Exam: NORMAL INSPECTION - ENT Exam ENT Exam: Mucous Membranes Moist - Neck Exam Neck Exam: absent: Meningismus - Respiratory Exam Respiratory Exam: Decreased Breath Sounds - Cardiovascular Exam Cardiovascular Exam: +S1, +S2 - GI/Abdominal Exam GI & Abdominal Exam: Soft. absent: Tenderness Assessment and Plan - Assessment and Plan (Free Text) Plan: Assessment acute sigmoid diverticulitis, S/P exploratory laparotomy, low anterior resection , end colostomy, appendectomy, bilateral ureteral stent placement POD #3 Plan Continue Zosyn day 6 and will continue to monitor clinically
--- NOTE | 2017-08-20 06:23 | OP ---
PROCEDURE DATE: 08/10/2017 PREOPERATIVE DIAGNOSIS: Obstruction of the sigmoid colon. POSTOPERATIVE DIAGNOSIS: Obstruction of the sigmoid colon. PROCEDURE: Low anterior resection and Ann procedure. SURGEON: José Antonio Wells M.D. SALES RECRUITER: Dr. Lo. ESTIMATED BLOOD LOSS: Minimal. COMPLICATIONS: None. DESCRIPTION OF PROCEDURE: After the successful time-out, where the patient was identified by name and procedure and laterality, my monica, the consent, wrist bands, birthday and number. The operation proceeded with SCIP protocol with perioperative antibiotics. The ureteral catheters were placed by Dr. Alegria. Thereafter, the patient was placed in lithotomy and the operative procedure, a low anterior incision was made from the umbilicus to the pelvis and the abdomen entered. The liver was free. There was a well-circumscribed [id number] sized mass in the sigmoid, readily palpable, not very mobile. It was densely adherent to the left pelvic wall. Ureteral catheters were diagnosed as they were bilateral 2 ureters, catheters were placed in the left side very nicely and we can feel them. The line of pelvis taken superiorly and this was taken down into the pelvis. There was no free separation. The was placed on top of the ureter and spread developing a plane to allow the resection into the pelvis very nicely. With separation, there seemed to be a tumor, cancer. Going distally, the peritoneum was circumferentially dissected. During the dissection on the left side in the pelvis, there was some deserosalization. This was repaired. On the right side, the same, this was repaired. A curvilinear cutter was placed in the pelvis and the entire rectal stump was taken. Alternately, this was opened without mucosal lesion. There was thickening in the mesentery, but no clear tumor. This was evaluated by Pathology who concurred there was no tumor, although I did suspect it. Proximal colon was examined. It was very hypertrophic, edematous, and I elected not to do an ostomy. The colon was mobile, was brought up through a left lower quadrant ostomy incision and it was matured very nicely. It was tight initially, had to be redone, but it was nicely pink at the end. Somewhat of a lip was made circumferentially. The abdomen was otherwise unremarkable. A Ankit was placed, On-Q was placed, the incision was closed with a running #1 PDS above and below and tied in the middle with buried knot. On-Q was started, Teixeira was removed at the end with the ureteral catheters and replaced with a regular Teixeira. The patient was taken to the recovery room in good condition after the sponge and needle counts were correct. José Antonio Wells MD
--- NOTE | 2017-08-21 07:06 | DS ---
SUMMARY: He was in the hospital side. He is status post colon resection for stricture and colostomy, status post colon mass removal, and now he is being discharged to the TCU for continued postop care, IV fluids, antibiotics and recovery. He is being discharged to the TCU. Fabio Shea DO
== END 2017-08-13 23:05 | DRG 330 ==
LOC: ED 02:33 → ERH 05:50 → 5RNO 16:40
PROVIDERS: ADMIT Family Medicine; ATTEND Family Medicine
PROC: 0T788DZ Dilation of Bilateral Ureters with Intraluminal Device, Via Natural or Artificial Opening Endoscopic (ICD-10-PCS; 2017-08-10)
PROC: 0DTN0ZZ Resection of Sigmoid Colon, Open Approach (ICD-10-PCS; principal; 2017-08-10 08:30)
PROC: 0DTJ0ZZ Resection of Appendix, Open Approach (ICD-10-PCS; 2017-08-10 08:30)
DX: K57.32 Diverticulitis of large intestine without perforation or abscess without bleeding (principal); K56.699 Other intestinal obstruction unspecified as to partial versus complete obstruction; F17.210 Nicotine dependence, cigarettes, uncomplicated

== ENCOUNTER 2017-08-13 23:05 | Inpatient (IN) | payer BC ==
[2017-08-14] VITALS: BMI 37.1
[2017-08-14] MEDS ORDERED: Oxycodone/Acetaminophen 5/325 mg Tab PO PRN ×2 (00:34→03:05)
[2017-08-14] MEDS ORDERED: Morphine 4 mg/ml ISec IVP PRN (00:34)
[2017-08-14] MEDS: Potassium Ch 20mEq in D5-1/2NS 1,000 ML IV SCH ×2 (01:31→15:16)
--- NOTE | 2017-08-14 04:07 | CP.PCM.PN ---
Subjective - Date & Time of Evaluation Date of Evaluation: 08/14/17 Time of Evaluation: 07:10 - Subjective Subjective: Pt seen and examined at bedside this AM. No adverse events overnight. Patient tolerated his CLD, pain is improving, denies fevers or nausea, patient has not been out of bed much since surgery. Patient has been passing gas through the colostomy Objective - Vital Signs/Intake and Output Vital Signs (last 24 hours): Temp Pulse Resp BP Pulse Ox 98.7 F 75 18 114/71 08/14/17 02:36 08/14/17 02:36 08/14/17 02:36 08/14/17 02:36 - Medications Medications: Current Medications Enoxaparin Sodium (Lovenox) 40 mg SC DAILY [facility] PRN Reason: Protocol Famotidine (Pepcid) 20 mg PO 1000,2200 [facility] PRN Reason: Protocol Potassium Chloride/Dextrose/Sod Cl (Potassium Chl 20 Meq In D5-1/2ns) 1,000 mls @ 75 mls/hr IV .[id number] [facility] Last Admin: 08/14/17 01:31 Dose: Not Given Morphine Sulfate (Morphine) 7 mg IVP Q4H PRN; Protocol PRN Reason: Pain, severe (8-10) Ondansetron HCl (Zofran Inj) 4 mg IVP Q4H PRN; Protocol PRN Reason: Nausea/Vomiting Oxycodone/Acetaminophen (Percocet 10/325 Mg Tab) 1 tab PO Q4H PRN; Protocol PRN Reason: Pain, severe (8-10) Oxycodone/Acetaminophen (Percocet 5/325 Mg Tab) 1 tab PO Q4H PRN; Protocol PRN Reason: Pain, Mild (1-3) Stop: 08/17/17 00:35 - Constitutional Appears: Well, Non-toxic, No Acute Distress - Head Exam Head Exam: ATRAUMATIC, NORMOCEPHALIC - Eye Exam Eye Exam: Normal appearance. absent: Conjunctival injection, Scleral icterus - ENT Exam ENT Exam: Mucous Membranes Moist, Normal Oropharynx - Respiratory Exam Respiratory Exam: NORMAL BREATHING PATTERN. absent: Accessory Muscle Use, Respiratory Distress - Cardiovascular Exam Cardiovascular Exam: RRR - GI/Abdominal Exam GI & Abdominal Exam: Distended (mild), Soft, Tenderness (around incision). absent: Rebound Additional comments: Colostomy pink, patent, productive of dark serosanguinous fluid and gas. Incision well approximated by hilda, no erythema, swelling, or drainage - Extremities Exam Extremities Exam: absent: Calf Tenderness, Pedal Edema, Tenderness - Neurological Exam Neurological Exam: Alert, Awake, Oriented x3 - Psychiatric Exam Psychiatric exam: Normal Affect, Normal Mood - Skin Skin Exam: Dry, Normal Color, Warm Assessment and Plan - Assessment and Plan (Free Text) Assessment: 36M POD#4 s/p colectomy with end colostomy and appendectomy for diverticulitis Plan: -FLD as tolerated -Encourage ambulation and incentive spirometer use -Monitor for bowel function through colostomy -PRN pain and nausea medication -Continue antibiotics per ID Further recs per Dr. Russell Jimenez, PGY2
[2017-08-14] MEDS: Oxycodone/Acetaminophen 10/325 mg Tab PO PRN ×3 (06:01→19:17)
[2017-08-14 07:55] LABS: BASO # 0.03 K/mm3 (0.0-2.0); BASO % 0.3 % (0.0-3.0); EOS # 0.2 (0.0-0.7); EOS % 1.8 % (1.5-5.0); GRAN # 8.17 (1.4-6.5); GRAN % 80.6 % (50.0-68.0); LYMPH # 1.2 (1.2-3.4); LYMPH % 11.5 % (22.0-35.0); MEAN CELL VOLUME 82.9 fl (80.0-105.0); MEAN CORPUSCULAR HEMOGLOBIN 27.4 pg (25.0-35.0); MEAN PLATELET VOLUME 9.3 fl (7.0-11.0); MONO # 0.6 (0.1-0.6); MONO % 5.8 % (1.0-6.0); RBC 4.75 10^6/uL (3.5-6.1); RED CELL DISTRIBUTION WIDTH 14.3 % (11.5-14.5); WHITE BLOOD COUNT 10.1 10^3/ul (4.5-11.0)
[2017-08-14 09:46] LABS: ALB/GLOB RATIO 1.1 (1.1-1.8); ALBUMIN 2.9 g/dL (3.0-4.8); ALT/SGPT 28 U/L (7-56); AST/SGOT 19 U/L (17-59); BLOOD UREA NITROGEN 6 mg/dL (7-21); CALCIUM 9.1 mg/dL (8.4-10.5); GFR AFRICAN-AMERICAN > 60; GFR NON-AFRICAN AMERICAN > 60
[2017-08-14] MEDS: Enoxaparin 40 mg Syringe SC SCH (11:02)
--- NOTE | 2017-08-14 11:33 | CP.PCM.CON ---
History of Present Illness - History of Present Illness History of Present Illness: 36 year old male was initially admitted in [facility] after another bout of sigmoid diverticulitis. He was previously admitted for the same disease and partially got better on conservative management, but because of the re- occurence, he underwent surgery to remove the simgoid colon. He has been doing better and is now transferred to [facility] for continued medical therapy and physical rehab. Infectious Diseases consult is requested to continue his antibiotic therapy. Currently he denies fever or chills, still with occasional abdominal pain but a little better, no nausea or vomiting, passing gas through the colostomy but no stools yet, no dysuria, no cough or colds, no sore throat, no headache or dizziness. Review of Systems - Review of Systems All systems: reviewed and no additional remarkable complaints except (as per hPI ) Past Patient History - Infectious Disease Hx of Infectious Diseases: None - Tetanus Immunizations Tetanus Immunization: Unknown - Past Medical History & Family History Past Medical History?: Yes - Past Social History Smoking Status: Current Some Days Smoker - CARDIAC Hx Cardiac Disorders: No - PULMONARY Hx Respiratory Disorders: No - NEUROLOGICAL Hx Neurological Disorder: No - HEENT Hx HEENT Problems: No - RENAL Hx Chronic Kidney Disease: No - ENDOCRINE/METABOLIC Hx Endocrine Disorders: No - HEMATOLOGICAL/ONCOLOGICAL Hx Blood Transfusions: No Hx Blood Transfusion Reaction: No - INTEGUMENTARY Hx Dermatological Problems: No - MUSCULOSKELETAL/RHEUMATOLOGICAL Hx Falls: No - GASTROINTESTINAL Hx Gastrointestinal Disorders: Yes (Diverticulitis, Appendectomy) - GENITOURINARY/GYNECOLOGICAL Hx Genitourinary Disorders: No Hx Reproductive Disorders: No - PSYCHIATRIC Hx Psychophysiologic Disorder: No Hx Substance Use: No - SURGICAL HISTORY Hx Surgeries: No - ANESTHESIA Hx Anesthesia Reactions: No Hx Malignant Hyperthermia: No Meds Allergies/Adverse Reactions: Allergies Allergy/AdvReac Type Severity Reaction Status Date / Time No Known Allergies Allergy Verified 08/07/17 20:12 - Medications Medications: Current Medications Enoxaparin Sodium (Lovenox) 40 mg SC DAILY [facility] PRN Reason: Protocol Famotidine (Pepcid) 20 mg PO 1000,2200 [facility] PRN Reason: Protocol Potassium Chloride/Dextrose/Sod Cl (Potassium Chl 20 Meq In D5-1/2ns) 1,000 mls @ 75 mls/hr IV .[id number] [facility] Last Admin: 08/14/17 01:31 Dose: Not Given Piperacillin Sod/Tazobactam Sod (Zosyn 3.375 In Ns 100ml) 100 mls @ 200 mls/hr IVPB Q6 [facility] PRN Reason: Protocol Stop: 08/21/17 12:01 Morphine Sulfate (Morphine) 7 mg IVP Q4H PRN; Protocol PRN Reason: Pain, severe (8-10) Ondansetron HCl (Zofran Inj) 4 mg IVP Q4H PRN; Protocol PRN Reason: Nausea/Vomiting Oxycodone/Acetaminophen (Percocet 10/325 Mg Tab) 1 tab PO Q4H PRN; Protocol PRN Reason: Pain, severe (8-10) Last Admin: 08/14/17 06:01 Dose: 1 tab Oxycodone/Acetaminophen (Percocet 5/325 Mg Tab) 1 tab PO Q4H PRN; Protocol PRN Reason: Pain, Mild (1-3) Stop: 08/17/17 00:35 Physical Exam - Constitutional Appears: Non-toxic - Head Exam Head Exam: NORMAL INSPECTION - ENT Exam ENT Exam: Mucous Membranes Moist - Neck Exam Neck exam: Negative for: Meningismus - Respiratory Exam Respiratory Exam: Decreased Breath Sounds - Cardiovascular Exam Cardiovascular Exam: +S1, +S2 - GI/Abdominal Exam GI & Abdominal Exam: Soft. absent: Tenderness Additional comments: left sided colostomy in place Results - Vital Signs Recent Vital Signs: Last Vital Signs Temp 98.7 F 08/14/17 02:36 Pulse 75 08/14/17 02:36 Resp 18 08/14/17 02:36 BP 114/71 08/14/17 02:36 Pulse Ox - Labs Result Diagrams: 08/14/17 07:00 08/14/17 07:00 Labs: Laboratory Results - last 24 hr 08/14/17 08/14/17 07:00 07:00 WBC 10.1 D RBC 4.75 Hgb 13.0 L Hct 39.4 L MCV 82.9 MCH 27.4 MCHC 33.0 RDW 14.3 Plt Count 307 MPV 9.3 Gran % 80.6 H Lymph % (Auto) 11.5 L Jessamine % (Auto) 5.8 Eos % (Auto) 1.8 Baso % (Auto) 0.3 Gran # 8.17 H Lymph # (Auto) 1.2 Jessamine # (Auto) 0.6 Eos # (Auto) 0.2 Baso # (Auto) 0.03 Sodium 140 Potassium 3.9 Chloride 100 Carbon Dioxide 31 Anion Gap 13 BUN 6 L Creatinine 0.9 Est GFR ( Amer) > 60 Est GFR (Non-Af Amer) > 60 Random Glucose 120 H Calcium 9.1 Total Bilirubin 0.9 AST 19 ALT 28 Alkaline Phosphatase 50 Total Protein 5.6 L Albumin 2.9 L Globulin 2.7 Albumin/Globulin Ratio 1.1 Assessment & Plan - Assessment and Plan (Free Text) Plan: Assessment acute sigmoid diverticulitis, S/P exploratory laparotomy, low anterior resection , end colostomy, appendectomy, bilateral ureteral stent placement POD #4 Plan Continue Zosyn day 7 and will continue to monitor clinically - may d/c antibiotics once on regular diet, but may consider stopping it even before that is reached as long as patient is stable
[2017-08-14] MEDS: Piperacillin/Tazobact 3.375 gm 100 ML IVPB SCH ×3 (14:55→23:54)
--- NOTE | 2017-08-15 01:56 | HP ---
HISTORY OF PRESENT ILLNESS: He was on the hospital side, transferred to the TCU yesterday. 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 He had a colon resection and a colostomy. He is here for recovery from surgery, is in lot of pain. FAMILY HISTORY: He has no known family history. SOCIAL HISTORY: He still smokes. Hopefully, he will quit. No alcohol. No substance abuse. ALLERGIES: NO KNOWN DRUG ALLERGIES. PAST SURGICAL HISTORY: This is his first surgery. REVIEW OF SYSTEMS: No acute vision or hearing changes. No sore throat. No neck pain. No chest pain or palpitations. No shortness of breath or cough. There is abdominal pain. This is typical of a surgical abdominal pain. It is sharp, twisting, is all over the place. He is on pain meds. No nausea or vomiting. He is eating a little. Extremities with no edema. Moves all 4 extremities. No anxiety, depression, sweating or tremors. PHYSICAL EXAMINATION: GENERAL: He is more comfortable, but still with some abdominal pain. VITAL SIGNS: 98.3 temp, 72 pulse, 156/97 blood pressure, I will check his blood pressure medications, 18 respiratory rate, 96% O2 sat. HEENT: His head is atraumatic, normocephalic. Extraocular muscles are intact. Pupils are equal and reactive to light and accommodation. His throat is clear, moist. NECK: Supple. Thyroid midline. No appreciable lymphadenopathy. HEART: Regular rate. Normal S1, S2. LUNGS: Decreased breath sounds, but clear to auscultation. I encouraged him with his incentive spirometry. ABDOMEN: Has got a colostomy. Decreased bowel sounds are present. No guarding, no rebound. Just sore. EXTREMITIES: No edema. NEUROLOGIC: GCS is 15. Cranial nerves II through XII are grossly intact. SKIN: Warm and dry. LABORATORY DATA: He had blood tests. He has 140 sodium, potassium of 3.9, BUN 6, creatinine 0.9, GFR is greater than 60, sugar is 120, calcium is 9.1, total bilirubin is 0.9. AST is 19, ALT is 28, alkaline phosphatase is 50. He has a white count of 10.1, hemoglobin 13, hematocrit 39.4, and platelets of 307. ASSESSMENT AND PLAN: He is being seen by Infectious Disease, Surgery. He should do very well here. He is here for status post colon resection, colon mass, colostomy, acute diverticulitis, low potassium. We will check his labs tomorrow, get him physical therapy. Continue with the treatment. He has got to learn to deal with his colostomy, needs colostomy training. Continue aggressive treatment and care. Fabio Shea DO
[2017-08-15] MEDS: Oxycodone/Acetaminophen 10/325 mg Tab PO PRN ×3 (02:49→16:16)
[2017-08-15] MEDS: Potassium Ch 20mEq in D5-1/2NS 1,000 ML IV SCH ×2 (04:27)
[2017-08-15] MEDS: Piperacillin/Tazobact 3.375 gm 100 ML IVPB SCH ×4 (05:31→23:39)
[2017-08-15 06:30] LABS: HEMOGLOBIN 12.5 g/dL (14.0-18.0); MEAN CELL VOLUME 81.8 fl (80.0-105.0); MEAN CORPUSCULAR HEMOGLOBIN 27.4 pg (25.0-35.0); MEAN CORPUSCULAR HGB CONC 33.4 g/dl (31.0-37.0); MEAN PLATELET VOLUME 9.2 fl (7.0-11.0); RBC 4.57 10^6/uL (3.5-6.1); RED CELL DISTRIBUTION WIDTH 14.3 % (11.5-14.5); WHITE BLOOD COUNT 8.7 10^3/ul (4.5-11.0)
[2017-08-15 06:38] LABS: ALT/SGPT 38 U/L (7-56); AST/SGOT 30 U/L (17-59); BLOOD UREA NITROGEN 7 mg/dL (7-21); CALCIUM 9.2 mg/dL (8.4-10.5); GFR AFRICAN-AMERICAN > 60; GFR NON-AFRICAN AMERICAN > 60
[2017-08-15] MEDS: Enoxaparin 40 mg Syringe SC SCH (10:19)
[2017-08-15] MEDS ORDERED: Potassium Chloride 20 mEq ER Tab PO ONE (12:18)
--- NOTE | 2017-08-15 12:43 | CP.PCM.PN ---
Subjective - Date & Time of Evaluation Date of Evaluation: 08/15/17 Time of Evaluation: 12:10 - Subjective Subjective: Comfortable, no fevers, still with occasional abdominal pain, but mostly positional, still no stool through colostomy. Objective - Vital Signs/Intake and Output Vital Signs (last 24 hours): Temp Pulse Resp BP Pulse Ox 98.3 F 72 18 156/97 H 96 08/14/17 13:47 08/14/17 13:47 08/14/17 13:47 08/14/17 13:47 08/14/17 13:47 - Medications Medications: Current Medications Enoxaparin Sodium (Lovenox) 40 mg SC DAILY [facility] PRN Reason: Protocol Last Admin: 08/14/17 11:02 Dose: 40 mg Famotidine (Pepcid) 20 mg PO 1000,2200 [facility] PRN Reason: Protocol Last Admin: 08/14/17 21:42 Dose: Not Given Piperacillin Sod/Tazobactam Sod (Zosyn 3.375 In Ns 100ml) 100 mls @ 200 mls/hr IVPB Q6 [facility] PRN Reason: Protocol Stop: 08/21/17 12:01 Last Admin: 08/15/17 05:31 Dose: 200 mls/hr Ondansetron HCl (Zofran Inj) 4 mg IVP Q4H PRN; Protocol PRN Reason: Nausea/Vomiting Oxycodone/Acetaminophen (Percocet 10/325 Mg Tab) 1 tab PO Q4H PRN; Protocol PRN Reason: Pain, severe (8-10) Last Admin: 08/15/17 02:49 Dose: 1 tab Oxycodone/Acetaminophen (Percocet 5/325 Mg Tab) 1 tab PO Q4H PRN; Protocol PRN Reason: Pain, Mild (1-3) Stop: 08/17/17 00:35 - Labs Labs: 08/15/17 06:00 08/15/17 06:00 - Constitutional Appears: Non-toxic, Chronically Ill - Head Exam Head Exam: NORMAL INSPECTION - ENT Exam ENT Exam: Mucous Membranes Moist - Neck Exam Neck Exam: absent: Meningismus - Respiratory Exam Respiratory Exam: Decreased Breath Sounds - Cardiovascular Exam Cardiovascular Exam: +S1, +S2 - GI/Abdominal Exam GI & Abdominal Exam: Soft. absent: Tenderness Additional comments: left sided colostomy in place Assessment and Plan - Assessment and Plan (Free Text) Plan: Assessment acute sigmoid diverticulitis, S/P exploratory laparotomy, low anterior resection , end colostomy, appendectomy, bilateral ureteral stent placement POD #5 Plan Continue Zosyn day 8 and will continue to monitor clinically - will consider d/ c of antibiotics once on regular diet, but may consider stopping it even before that is reached as long as patient is stable and has stool production
--- NOTE | 2017-08-15 15:13 | PN ---
DATE: SUBJECTIVE: I saw Mr. Faust sitting out of bed to chair. He is having some back pains and abdominal pains. I saw him with a surgical scrub tech, the hilda left in place, but look clean. No signs of infection. The colostomy looks clean too. He is on Lovenox, Percocet, Protonix, Zofran, and Zosyn IV. OBJECTIVE: VITAL SIGNS: He has 98.3 temperature; 72 pulse; 136/97 blood pressure, which is quite high, it was 114/71 earlier; 18 respiratory rate; 96% O2 sat on room air. HEENT: Head is atraumatic, normocephalic. Throat is moist. NECK: Supple. HEART: Regular rate. LUNGS: Decreased breath sounds, but clear. ABDOMEN: Mildly distended. He has a colostomy and hilda for the surgical issue, looks clean. Decreased bowel sounds, mildly distended. EXTREMITIES: No edema. LABORATORY DATA: He has 8.7 white count, 12.5 hemoglobin, 37.4 hematocrit with 315 platelets. Sodium 140, potassium 3.5, I will give him some potassium. BUN 7, creatinine 0.8. GFR is greater than 60. Sugar is 119. Calcium is 9.2. Total bili is 1. AST is 30, ALT is 38, alkaline phosphatase 52. Total protein is 6.1. He is being seen by Infectious Disease and Surgery. We will continue with the Zosyn IV as per Infectious Disease. He has not been on blood pressure pills. We will keep an eye on his blood pressure, if it persists or staying elevated, I will add Norvasc 2.5 mg and give him some potassium one time dose today. I will check his labs tomorrow. He is status post colon resection for stricture and mass. Fabio Shea DO
[2017-08-15] MEDS: Lidocaine 5% Patch TD SCH (16:17)
[2017-08-16] MEDS: Oxycodone/Acetaminophen 10/325 mg Tab PO PRN
[2017-08-16] MEDS: Piperacillin/Tazobact 3.375 gm 100 ML IVPB SCH ×4 (05:20→23:33)
[2017-08-16] MEDS: Pantoprazole 40 mg EC Tab PO SCH (05:32)
[2017-08-16] MEDS: Lidocaine 5% Patch TD SCH (11:40)
[2017-08-16] MEDS: Enoxaparin 40 mg Syringe SC SCH (11:40)
--- NOTE | 2017-08-16 11:49 | CP.PCM.PN ---
Subjective - Date & Time of Evaluation Date of Evaluation: 08/16/17 Time of Evaluation: 10:15 - Subjective Subjective: Tolerated regular diet this morning but still no solid stools, no fevers, less abdominal pain. Objective - Vital Signs/Intake and Output Vital Signs (last 24 hours): Temp Pulse Resp BP Pulse Ox 99.7 F H 74 18 120/18 L 99 08/15/17 10:00 08/15/17 10:00 08/15/17 10:00 08/15/17 10:00 08/15/17 10:00 Intake and Output: 08/15/17 08/16/17 18:59 06:59 Intake Total 600 Balance 600 - Medications Medications: Current Medications Enoxaparin Sodium (Lovenox) 40 mg SC DAILY [facility] PRN Reason: Protocol Last Admin: 08/15/17 10:19 Dose: 40 mg Piperacillin Sod/Tazobactam Sod (Zosyn 3.375 In Ns 100ml) 100 mls @ 200 mls/hr IVPB Q6 [facility] PRN Reason: Protocol Stop: 08/21/17 12:01 Last Admin: 08/16/17 05:20 Dose: 200 mls/hr Lidocaine (Lidoderm) 1 ea TD DAILY [facility] Last Admin: 08/15/17 16:17 Dose: 1 ea Ondansetron HCl (Zofran Inj) 4 mg IVP Q4H PRN; Protocol PRN Reason: Nausea/Vomiting Oxycodone/Acetaminophen (Percocet 10/325 Mg Tab) 1 tab PO Q4H PRN; Protocol PRN Reason: Pain, severe (8-10) Last Admin: 08/16/17 00:00 Dose: 1 tab Oxycodone/Acetaminophen (Percocet 5/325 Mg Tab) 1 tab PO Q4H PRN; Protocol PRN Reason: Pain, Mild (1-3) Stop: 08/17/17 00:35 Pantoprazole Sodium (Protonix Ec Tab) 40 mg PO 0600 [facility] Last Admin: 08/16/17 05:32 Dose: 40 mg - Labs Labs: 08/15/17 06:00 08/15/17 06:00 - Constitutional Appears: Non-toxic, Chronically Ill - Head Exam Head Exam: NORMAL INSPECTION - ENT Exam ENT Exam: Mucous Membranes Moist - Neck Exam Neck Exam: absent: Meningismus - Respiratory Exam Respiratory Exam: Decreased Breath Sounds - Cardiovascular Exam Cardiovascular Exam: +S1, +S2 - GI/Abdominal Exam GI & Abdominal Exam: Soft. absent: Tenderness Additional comments: left sided colostomy in place Assessment and Plan - Assessment and Plan (Free Text) Plan: Assessment acute sigmoid diverticulitis, S/P exploratory laparotomy, low anterior resection , end colostomy, appendectomy, bilateral ureteral stent placement POD #6 Plan Continue Zosyn day 9 and will continue to monitor clinically - will consider d/ c of antibiotics once on regular diet and moving bowels
--- NOTE | 2017-08-16 12:14 | CP.PCM.PN ---
Subjective - Date & Time of Evaluation Date of Evaluation: 08/16/17 Time of Evaluation: 12:10 - Subjective Subjective: Surgery Progress note: Dr. Wells Patient seen and examined at bedside. Patient still complains of pain, but states it is well managed. He is tolerating his diet. No new complaints. He admits to passing bowel movement through colostomy. Objective - Vital Signs/Intake and Output Vital Signs (last 24 hours): Temp Pulse Resp BP Pulse Ox 99.7 F H 74 18 120/18 L 99 08/15/17 10:00 08/15/17 10:00 08/15/17 10:00 08/15/17 10:00 08/15/17 10:00 Intake and Output: 08/16/17 08/16/17 06:59 18:59 Output Total 450 Balance -450 - Medications Medications: Current Medications Enoxaparin Sodium (Lovenox) 40 mg SC DAILY [facility] PRN Reason: Protocol Last Admin: 08/16/17 11:40 Dose: 40 mg Piperacillin Sod/Tazobactam Sod (Zosyn 3.375 In Ns 100ml) 100 mls @ 200 mls/hr IVPB Q6 [facility] PRN Reason: Protocol Stop: 08/21/17 12:01 Last Admin: 08/16/17 11:40 Dose: 200 mls/hr Lidocaine (Lidoderm) 1 ea TD DAILY [facility] Last Admin: 08/16/17 11:40 Dose: 1 ea Ondansetron HCl (Zofran Inj) 4 mg IVP Q4H PRN; Protocol PRN Reason: Nausea/Vomiting Oxycodone/Acetaminophen (Percocet 10/325 Mg Tab) 1 tab PO Q4H PRN; Protocol PRN Reason: Pain, severe (8-10) Last Admin: 08/16/17 00:00 Dose: 1 tab Oxycodone/Acetaminophen (Percocet 5/325 Mg Tab) 1 tab PO Q4H PRN; Protocol PRN Reason: Pain, Mild (1-3) Stop: 08/17/17 00:35 Pantoprazole Sodium (Protonix Ec Tab) 40 mg PO 0600 [facility] Last Admin: 08/16/17 05:32 Dose: 40 mg - Labs Labs: 08/15/17 06:00 08/15/17 06:00 - Constitutional Appears: Well - Head Exam Head Exam: ATRAUMATIC, NORMAL INSPECTION, NORMOCEPHALIC - Eye Exam Eye Exam: EOMI, Normal appearance, PERRL Pupil Exam: NORMAL ACCOMODATION, PERRL - ENT Exam ENT Exam: Mucous Membranes Moist, Normal Exam - Neck Exam Neck Exam: Full ROM, Normal Inspection. absent: Lymphadenopathy - Respiratory Exam Respiratory Exam: Clear to Ausculation Bilateral, NORMAL BREATHING PATTERN - Cardiovascular Exam Cardiovascular Exam: REGULAR RHYTHM, +S1, +S2. absent: Murmur - GI/Abdominal Exam GI & Abdominal Exam: Soft, Normal Bowel Sounds. absent: Tenderness Additional comments: Colostomy pink, patent, productive of dark serosanguinous fluid and gas. Incision well approximated by hilda, no erythema, swelling, or drainage - Extremities Exam Extremities Exam: Full ROM, Normal Capillary Refill, Normal Inspection. absent : Joint Swelling, Pedal Edema - Back Exam Back Exam: NORMAL INSPECTION - Neurological Exam Neurological Exam: Alert, Awake, CN II-XII Intact, Normal Gait, Oriented x3 - Psychiatric Exam Psychiatric exam: Normal Affect, Normal Mood - Skin Skin Exam: Dry, Intact, Normal Color, Warm Assessment and Plan - Assessment and Plan (Free Text) Assessment: 36M with diverticulitis who is POD#6 s/p colectomy with end colostomy and appendectomy Plan: -Continue Soft heart healthy diet -Encourage ambulation and incentive spirometer use -Passing BM through colostomy -PRN pain and nausea medication -Continue antibiotics per ID -No further surgical intervention - will continue to follow -Discussed with Dr. Wells, who agrees with above
--- NOTE | 2017-08-16 12:50 | PN ---
DATE: SUBJECTIVE: I saw Samson resting in bed this morning. He is in the TCU. He is status post colon resection and colostomy because of colonic stricture and mass, could be reversed in 3 months as per Surgery. He is on Lidoderm, Lovenox, Percocet, Protonix, Zofran, and Zosyn. OBJECTIVE: VITAL SIGNS: He has a 99.7 temperature, little bit up; 74 pulse; 120/80 blood pressure; 18 respiratory rate; 99% O2 sat on room air. GENERAL: He looks a little bit weaker today than yesterday. He also looks may be a little more pale. He is eating some, still with pain, out of his bed, just little bit worse today than yesterday as temperature did not go up. HEENT: His head is atraumatic, normocephalic. HEART: Regular rate. LUNGS: Decreased breath sounds, but clear. ABDOMEN: Mildly distended, soft, decreased bowel sounds were present. Incision looks good. Colostomy looks good. EXTREMITIES: No edema. LABORATORY DATA: He has an 8.7 white count, 12.5 hemoglobin, 37.4 hematocrit with 315 platelets. He also has a 140 sodium; potassium 3.5, we will give him some potassium. Sugar is 116. Calcium is 9.2. Total bili is 1, AST is 30, ALT is 38, and alkaline phosphatase is 52. Being seen by Infectious Disease. We will continue with the IV antibiotics as per Infectious Disease and encourage physical therapy and diet as per Surgery for followup and postsurgical care. Fabio Shea DO
[2017-08-17] MEDS: Oxycodone/Acetaminophen 10/325 mg Tab PO PRN ×3 (00:52→14:22)
[2017-08-17] MEDS: Piperacillin/Tazobact 3.375 gm 100 ML IVPB SCH ×4 (06:13→23:53)
[2017-08-17] MEDS: Pantoprazole 40 mg EC Tab PO SCH (06:14)
[2017-08-17 07:00] LABS: HEMOGLOBIN 12.7 g/dL (14.0-18.0); MEAN CELL VOLUME 81.5 fl (80.0-105.0); MEAN CORPUSCULAR HGB CONC 33.1 g/dl (31.0-37.0); MEAN PLATELET VOLUME 9.3 fl (7.0-11.0); RBC 4.71 10^6/uL (3.5-6.1); RED CELL DISTRIBUTION WIDTH 14.4 % (11.5-14.5); WHITE BLOOD COUNT 13.9 10^3/ul (4.5-11.0)
--- NOTE | 2017-08-17 07:27 | CP.PCM.PN ---
Subjective - Date & Time of Evaluation Date of Evaluation: 08/17/17 Time of Evaluation: 07:00 - Subjective Subjective: Patient seen and examined at bedside this AM. Patient was complaining of increased pain in his lower abdominal incision when he stands. Patient also complains of not feeling hungry and so removed his own IV and was refusing IV antibiotics. Discussed with patient at length the need to continue antibiotics at this time due to dominik-incisional redness and swelling. Patient now agrees to restart the IV Objective - Vital Signs/Intake and Output Vital Signs (last 24 hours): Temp Pulse Resp BP Pulse Ox 99 F 76 18 124/76 94 L 08/16/17 17:50 08/16/17 17:50 08/16/17 17:50 08/16/17 17:50 08/16/17 17:50 - Medications Medications: Current Medications Enoxaparin Sodium (Lovenox) 40 mg SC DAILY [facility] PRN Reason: Protocol Last Admin: 08/16/17 11:40 Dose: 40 mg Piperacillin Sod/Tazobactam Sod (Zosyn 3.375 In Ns 100ml) 100 mls @ 200 mls/hr IVPB Q6 [facility] PRN Reason: Protocol Stop: 08/21/17 12:01 Last Admin: 08/17/17 06:13 Dose: Not Given Lidocaine (Lidoderm) 1 ea TD DAILY [facility] Last Admin: 08/16/17 11:40 Dose: 1 ea Ondansetron HCl (Zofran Inj) 4 mg IVP Q4H PRN; Protocol PRN Reason: Nausea/Vomiting Oxycodone/Acetaminophen (Percocet 10/325 Mg Tab) 1 tab PO Q4H PRN; Protocol PRN Reason: Pain, severe (8-10) Last Admin: 08/17/17 00:52 Dose: 1 tab Pantoprazole Sodium (Protonix Ec Tab) 40 mg PO 0600 [facility] Last Admin: 08/17/17 06:14 Dose: 40 mg - Labs Labs: 08/17/17 06:30 08/15/17 06:00 - Constitutional Appears: Non-toxic, No Acute Distress - Head Exam Head Exam: ATRAUMATIC, NORMOCEPHALIC - Eye Exam Eye Exam: Normal appearance. absent: Conjunctival injection, Scleral icterus - ENT Exam ENT Exam: Mucous Membranes Moist, Normal Oropharynx - Respiratory Exam Respiratory Exam: NORMAL BREATHING PATTERN. absent: Accessory Muscle Use, Respiratory Distress - GI/Abdominal Exam GI & Abdominal Exam: Soft, Tenderness (around inferior pole of incision). absent: Distended Additional comments: Colostomy pink, patent, and productive of serosanguinous liquid. Inferior pole of incision with surrounding erythema and mild induration, some serosanguinous drainage, no purulent drainage - Extremities Exam Extremities Exam: absent: Calf Tenderness, Pedal Edema, Tenderness - Neurological Exam Neurological Exam: Alert, Awake, Oriented x3 - Psychiatric Exam Psychiatric exam: Normal Affect, Normal Mood - Skin Skin Exam: Dry, Intact, Normal Color, Warm Additional comments: except as noted above Assessment and Plan - Assessment and Plan (Free Text) Assessment: 36M with diverticulitis and sigmoid stricture POD#7 s/p low anterior resection with end colostomy and appendectomy Plan: -Continue antibiotics for dominik-incisional inflammation. May switch to PO regimen if recommended by ID -Continue current pain regimen -Continue to encourage ambulation and incentive spirometer use -Advance to regular heart healthy diet -Prn nausea medication Discussed with DR. Wells, further recs per him Alicia Jimenez, PGY2
[2017-08-17 07:39] LABS: ALB/GLOB RATIO 0.9 (1.1-1.8); ALBUMIN 3.2 g/dL (3.0-4.8); ALT/SGPT 63 U/L (7-56); AST/SGOT 45 U/L (17-59); BLOOD UREA NITROGEN 9 mg/dL (7-21); CALCIUM 9.3 mg/dL (8.4-10.5); GFR AFRICAN-AMERICAN > 60; GFR NON-AFRICAN AMERICAN > 60
[2017-08-17] MEDS ORDERED: Vancomycin 1gm in NS 250ml 1 GM/250 ML BAG IVPB SCH (08:45)
--- NOTE | 2017-08-17 09:26 | PN ---
DATE: SUBJECTIVE: is seen. He has a descending colostomy, currently working very well. He how to use it. He shall be discharged home. He is complaining of severe pain that is mostly resolved. He needs an a.m. study for the rectum in addition to colonoscopy prior to surgery, which would be planned as a reversal between 6 weeks and 6 months. José Antonio Wells MD
[2017-08-17] MEDS ORDERED: Potassium Chloride 20 mEq ER Tab PO ONE (09:43)
[2017-08-17] MEDS: Enoxaparin 40 mg Syringe SC SCH (10:15)
[2017-08-17] MEDS: Lidocaine 5% Patch TD SCH (10:16)
--- NOTE | 2017-08-17 11:37 | CP.PCM.PN ---
Subjective - Date & Time of Evaluation Date of Evaluation: 08/17/17 Time of Evaluation: 10:10 - Subjective Subjective: Has some redness and leakage from he surgical incision site, no fevers, now tolerating his regular diet, no fevers, not in distress. Objective - Vital Signs/Intake and Output Vital Signs (last 24 hours): Temp Pulse Resp BP Pulse Ox 99 F 76 18 124/76 94 L 08/16/17 17:50 08/16/17 17:50 08/16/17 17:50 08/16/17 17:50 08/16/17 17:50 - Medications Medications: Current Medications Enoxaparin Sodium (Lovenox) 40 mg SC DAILY [facility] PRN Reason: Protocol Last Admin: 08/16/17 11:40 Dose: 40 mg Piperacillin Sod/Tazobactam Sod (Zosyn 3.375 In Ns 100ml) 100 mls @ 200 mls/hr IVPB Q6 [facility] PRN Reason: Protocol Stop: 08/21/17 12:01 Last Admin: 08/17/17 06:13 Dose: Not Given Vancomycin HCl (Vancomycin 1gm) 1 gm in 250 mls @ 167 mls/hr IVPB Q12H [facility] PRN Reason: Protocol Lidocaine (Lidoderm) 1 ea TD DAILY [facility] Last Admin: 08/16/17 11:40 Dose: 1 ea Ondansetron HCl (Zofran Inj) 4 mg IVP Q4H PRN; Protocol PRN Reason: Nausea/Vomiting Oxycodone/Acetaminophen (Percocet 10/325 Mg Tab) 1 tab PO Q4H PRN; Protocol PRN Reason: Pain, severe (8-10) Last Admin: 08/17/17 00:52 Dose: 1 tab Pantoprazole Sodium (Protonix Ec Tab) 40 mg PO 0600 [facility] Last Admin: 08/17/17 06:14 Dose: 40 mg - Labs Labs: 08/17/17 06:30 08/17/17 06:30 - Constitutional Appears: Non-toxic - Head Exam Head Exam: NORMAL INSPECTION - ENT Exam ENT Exam: Mucous Membranes Moist - Neck Exam Neck Exam: absent: Meningismus - Respiratory Exam Respiratory Exam: Decreased Breath Sounds - Cardiovascular Exam Cardiovascular Exam: +S1, +S2 - GI/Abdominal Exam GI & Abdominal Exam: Soft. absent: Tenderness Additional comments: left sided colostomy in place, incision site with dressings in place Assessment and Plan - Assessment and Plan (Free Text) Plan: Assessment acute sigmoid diverticulitis, S/P exploratory laparotomy, low anterior resection , end colostomy, appendectomy, bilateral ureteral stent placement POD #7 Plan Continue Zosyn day 10 and added Vanco IV and Bactroban ointment and will continue to monitor clinically - will consider change to PO antibiotics on discharge
--- NOTE | 2017-08-17 15:10 | PN ---
DATE: SUBJECTIVE: His IV came out and he has been refusing put back in. I did discuss this with him. He needs to get the IV put in for IV antibiotics. He is lying in bed. 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 OBJECTIVE: VITAL SIGNS: Temperature 99, 76 pulse, 124/76 blood pressure, 18 respiratory rate, 94% O2 sat on room air. HEENT: Head is atraumatic, normocephalic. HEART: Regular rate. LUNGS: Clear to auscultation. ABDOMEN: Soft, decreased bowel sounds. No guarding, no rebound. He has a colostomy and the sutures are in place. [place] not ready yet, may be Wednesday. EXTREMITIES: No edema. LABORATORY DATA: The biggest problem is that his white count went up to 13.9 from 8.7. He has to get back on the IV antibiotics. Hemoglobin is 12.7, 30.4 of hematocrit, and 315 platelets. Sodium 138, potassium is 3.5. We will give him K-Dur 20 mEq a day. BUN 9, creatinine 0.8. GFR is greater than 60. Sugar is 112. Calcium is 9.3. Total bili is 1, AST is 45, ALT is 53, alk phos is 69, total protein is 6.5. ASSESSMENT AND PLAN: He is being seen by Surgery and by Infectious Disease. He needs to get the IV put back in and I discussed it with the nurse that he needs to get back on his IV antibiotics. We will check his labs tomorrow. I want him out of bed to chair as he heals up from the surgery. Hopefully, it is not becoming septic. Fabio Shea DO MTDD
[2017-08-17] MEDS: Vancomycin 1gm in NS 250ml 1 GM/250 ML BAG IVPB SCH (17:57)
[2017-08-17] MEDS: Oxycodone/Acetaminophen 5/325 mg Tab PO PRN (19:50)
[2017-08-18] MEDS: Oxycodone/Acetaminophen 5/325 mg Tab PO PRN ×2 (01:40→19:57)
[2017-08-18] MEDS: Piperacillin/Tazobact 3.375 gm 100 ML IVPB SCH ×3 (05:36→17:13)
[2017-08-18] MEDS: Pantoprazole 40 mg EC Tab PO SCH (05:37)
[2017-08-18] MEDS: Enoxaparin 40 mg Syringe SC SCH (05:45)
[2017-08-18] MEDS: Vancomycin 1gm in NS 250ml 1 GM/250 ML BAG IVPB SCH ×2 (05:56→17:12)
[2017-08-18 07:13] LABS: HEMOGLOBIN 12.4 g/dL (14.0-18.0); MEAN CELL VOLUME 81.6 fl (80.0-105.0); MEAN CORPUSCULAR HEMOGLOBIN 26.8 pg (25.0-35.0); MEAN CORPUSCULAR HGB CONC 32.9 g/dl (31.0-37.0); MEAN PLATELET VOLUME 9.3 fl (7.0-11.0); RBC 4.62 10^6/uL (3.5-6.1); RED CELL DISTRIBUTION WIDTH 14.5 % (11.5-14.5); WHITE BLOOD COUNT 9.1 10^3/ul (4.5-11.0)
[2017-08-18 07:41] LABS: ALB/GLOB RATIO 0.9 (1.1-1.8); ALT/SGPT 71 U/L (7-56); AST/SGOT 45 U/L (17-59); BLOOD UREA NITROGEN 9 mg/dL (7-21); CALCIUM 9.2 mg/dL (8.4-10.5); GFR AFRICAN-AMERICAN > 60; GFR NON-AFRICAN AMERICAN > 60
[2017-08-18] MEDS: Lidocaine 5% Patch TD SCH (10:02)
--- NOTE | 2017-08-18 11:20 | CP.PCM.PN ---
Subjective - Date & Time of Evaluation Date of Evaluation: 08/18/17 Time of Evaluation: 11:17 - Subjective Subjective: Surgery: Dr. Wells Patient doing well. Incisional pain improved s/p seroma drainage. Tolerating diet. + ostomy output Objective - Vital Signs/Intake and Output Vital Signs (last 24 hours): Temp Pulse Resp BP Pulse Ox 98.2 F 78 18 128/79 95 08/18/17 10:00 08/18/17 10:00 08/18/17 10:00 08/18/17 10:00 08/18/17 10:00 - Medications Medications: Current Medications Enoxaparin Sodium (Lovenox) 40 mg SC 0600 [facility] PRN Reason: Protocol Last Admin: 08/18/17 05:45 Dose: 40 mg Piperacillin Sod/Tazobactam Sod (Zosyn 3.375 In Ns 100ml) 100 mls @ 200 mls/hr IVPB Q6 [facility] PRN Reason: Protocol Stop: 08/21/17 12:01 Last Admin: 08/18/17 05:36 Dose: 200 mls/hr Vancomycin HCl (Vancomycin 1gm) 1 gm in 250 mls @ 167 mls/hr IVPB 0600,1800 [facility] PRN Reason: Protocol Last Admin: 08/18/17 05:56 Dose: 167 mls/hr Lidocaine (Lidoderm) 1 ea TD DAILY [facility] Last Admin: 08/18/17 10:02 Dose: 1 ea Mupirocin (Bactroban Ointment) 0 gm TOP BID [facility] Last Admin: 08/18/17 10:02 Dose: 1 appl Ondansetron HCl (Zofran Inj) 4 mg IVP Q4H PRN; Protocol PRN Reason: Nausea/Vomiting Oxycodone/Acetaminophen (Percocet 10/325 Mg Tab) 1 tab PO Q4H PRN; Protocol PRN Reason: Pain, severe (8-10) Last Admin: 08/17/17 14:22 Dose: 1 tab Oxycodone/Acetaminophen (Percocet 5/325 Mg Tab) 1 tab PO Q4H PRN PRN Reason: Pain, moderate (4-7) Stop: 08/20/17 15:38 Last Admin: 08/18/17 01:40 Dose: 1 tab Pantoprazole Sodium (Protonix Ec Tab) 40 mg PO 0600 [facility] Last Admin: 08/18/17 05:37 Dose: 40 mg - Labs Labs: 08/18/17 06:30 08/18/17 06:30 - Constitutional Appears: Non-toxic, No Acute Distress - Head Exam Head Exam: ATRAUMATIC, NORMOCEPHALIC - Eye Exam Eye Exam: EOMI, Normal appearance - ENT Exam ENT Exam: Mucous Membranes Moist - Respiratory Exam Respiratory Exam: NORMAL BREATHING PATTERN. absent: Respiratory Distress - Cardiovascular Exam Cardiovascular Exam: REGULAR RHYTHM. absent: Tachycardia - GI/Abdominal Exam GI & Abdominal Exam: Soft. absent: Distended, Tenderness Additional comments: midline incision with erythema mild inferiorly, one staple removed w/ serousang fluid drainage ostomy pink, patent, productive Assessment and Plan - Assessment and Plan (Free Text) Assessment: 36 y/o male s/p LAR w/ colostomy creation POD8 Plan: will remove hilda prior to discharge -allow incision to drain, cont dressing changes prn -cont abx -cont diet OOB IS use f/u Dr. Wells 1 week post d/c from [facility] PGY3
--- NOTE | 2017-08-18 16:26 | CP.PCM.PN ---
Subjective - Date & Time of Evaluation Date of Evaluation: 08/18/17 Time of Evaluation: 10:50 - Subjective Subjective: Leakage from the surgical site is less, less abdominal pain, now with stools, eating well. No fevers. Objective - Vital Signs/Intake and Output Vital Signs (last 24 hours): Temp Pulse Resp BP Pulse Ox 98.2 F 77 16 127/82 98 08/17/17 17:38 08/17/17 17:38 08/17/17 17:38 08/17/17 17:38 08/17/17 17:38 - Medications Medications: Current Medications Enoxaparin Sodium (Lovenox) 40 mg SC 0600 [facility] PRN Reason: Protocol Last Admin: 08/18/17 05:45 Dose: 40 mg Piperacillin Sod/Tazobactam Sod (Zosyn 3.375 In Ns 100ml) 100 mls @ 200 mls/hr IVPB Q6 [facility] PRN Reason: Protocol Stop: 08/21/17 12:01 Last Admin: 08/18/17 05:36 Dose: 200 mls/hr Vancomycin HCl (Vancomycin 1gm) 1 gm in 250 mls @ 167 mls/hr IVPB 0600,1800 [facility] PRN Reason: Protocol Last Admin: 08/18/17 05:56 Dose: 167 mls/hr Lidocaine (Lidoderm) 1 ea TD DAILY [facility] Last Admin: 08/17/17 10:16 Dose: 1 ea Mupirocin (Bactroban Ointment) 0 gm TOP BID [facility] Last Admin: 08/17/17 17:22 Dose: 1 appl Ondansetron HCl (Zofran Inj) 4 mg IVP Q4H PRN; Protocol PRN Reason: Nausea/Vomiting Oxycodone/Acetaminophen (Percocet 10/325 Mg Tab) 1 tab PO Q4H PRN; Protocol PRN Reason: Pain, severe (8-10) Last Admin: 08/17/17 14:22 Dose: 1 tab Oxycodone/Acetaminophen (Percocet 5/325 Mg Tab) 1 tab PO Q4H PRN PRN Reason: Pain, moderate (4-7) Stop: 08/20/17 15:38 Last Admin: 08/18/17 01:40 Dose: 1 tab Pantoprazole Sodium (Protonix Ec Tab) 40 mg PO 0600 [facility] Last Admin: 08/18/17 05:37 Dose: 40 mg - Labs Labs: 08/18/17 06:30 08/18/17 06:30 - Constitutional Appears: Non-toxic, Chronically Ill - Head Exam Head Exam: NORMAL INSPECTION - ENT Exam ENT Exam: Mucous Membranes Moist - Neck Exam Neck Exam: absent: Meningismus - Respiratory Exam Respiratory Exam: Decreased Breath Sounds - Cardiovascular Exam Cardiovascular Exam: +S1, +S2 - GI/Abdominal Exam GI & Abdominal Exam: Soft. absent: Tenderness Additional comments: dressings in place over surgical site, colostomy on the left side of the abdomen intact Assessment and Plan - Assessment and Plan (Free Text) Plan: Assessment acute sigmoid diverticulitis, S/P exploratory laparotomy, low anterior resection , end colostomy, appendectomy, bilateral ureteral stent placement POD #8 Plan Continue Zosyn day 11 and added Vanco IV day 2and Bactroban ointment and will continue to monitor clinically - will consider change to PO antibiotics on discharge
--- NOTE | 2017-08-18 18:52 | PN ---
DATE: SUBJECTIVE: I saw Samson resting in bed. He slept fairly well, not great. He is still uncomfortable the hilda in and just not healing that well. He is on Bactroban cream, Lidoderm, Lovenox, Percocet, Protonix, vancomycin IV, Zosyn IV, and Zofran for nauseousness. He is eating okay. PHYSICAL EXAMINATION: VITAL SIGNS: He has a 98.2 temperature, 77 pulse, 127/82 blood pressure, 16 respiratory rate, 98% O2 sat on room air. HEENT: His head is atraumatic, normocephalic. HEART: Regular rate. LUNGS: Clear to auscultation. ABDOMEN: Soft, positive bowel sounds. There is stool in the colostomy. The hilda are in place. They look okay. There is a little bit of drainage. LABORATORY DATA: He has a 9.1 white count, it came back down, that is good; 12.4 hemoglobin; 37.7 hematocrit with 346 platelets. Sodium 141, potassium 3.6. BUN is 9, creatinine 0.9. GFR is greater than 60. Sugar is 106. Calcium is 9.2. Total bilirubin is 0.6, AST is 45, ALT is 71, alkaline phosphatase Total protein 6.3, albumin is 3. He is being seen by Infectious Disease and Surgery. He has a little bit of leakage from the surgical site. The white count is back down to normal. He had sigmoid diverticulitis, status post exploratory laparotomy with resection, colostomy, and appendectomy. We will continue with IV antibiotics. He is here for another 4 to 5 days. Continue with aggressive treatment and care on Samson Faust status post surgery. We will check his labs tomorrow. Answered many questions. Fabio Shea DO MTDD
[2017-08-19] MEDS: Piperacillin/Tazobact 3.375 gm 100 ML IVPB SCH ×2 (00:28→05:16)
[2017-08-19] MEDS: Enoxaparin 40 mg Syringe SC SCH (05:17)
[2017-08-19] MEDS: Pantoprazole 40 mg EC Tab PO SCH (05:17)
[2017-08-19] MEDS: Vancomycin 1gm in NS 250ml 1 GM/250 ML BAG IVPB SCH ×2 (06:01→17:48)
[2017-08-19 07:35] LABS: HEMOGLOBIN 12.5 g/dL (14.0-18.0); MEAN CELL VOLUME 81.6 fl (80.0-105.0); MEAN CORPUSCULAR HEMOGLOBIN 27.1 pg (25.0-35.0); MEAN CORPUSCULAR HGB CONC 33.2 g/dl (31.0-37.0); MEAN PLATELET VOLUME 9.1 fl (7.0-11.0); RBC 4.62 10^6/uL (3.5-6.1); RED CELL DISTRIBUTION WIDTH 14.5 % (11.5-14.5); WHITE BLOOD COUNT 7.3 10^3/ul (4.5-11.0)
[2017-08-19 07:53] LABS: ALBUMIN 3.2 g/dL (3.0-4.8); ALT/SGPT 65 U/L (7-56); AST/SGOT 31 U/L (17-59); BLOOD UREA NITROGEN 9 mg/dL (7-21); CALCIUM 9.2 mg/dL (8.4-10.5); GFR AFRICAN-AMERICAN > 60; GFR NON-AFRICAN AMERICAN > 60
[2017-08-19] MEDS: Lidocaine 5% Patch TD SCH (10:02)
--- NOTE | 2017-08-19 11:09 | CP.PCM.PN ---
Subjective - Date & Time of Evaluation Date of Evaluation: 08/19/17 Time of Evaluation: 09:55 - Subjective Subjective: Less drainage from surgical site, tolerating regular diet. No fevers. BM's through colostomy. Objective - Vital Signs/Intake and Output Vital Signs (last 24 hours): Temp Pulse Resp BP Pulse Ox 98.2 F 78 18 128/79 95 08/18/17 10:00 08/18/17 10:00 08/18/17 10:00 08/18/17 10:00 08/18/17 10:00 - Medications Medications: Current Medications Enoxaparin Sodium (Lovenox) 40 mg SC 0600 [facility] PRN Reason: Protocol Last Admin: 08/18/17 05:45 Dose: 40 mg Piperacillin Sod/Tazobactam Sod (Zosyn 3.375 In Ns 100ml) 100 mls @ 200 mls/hr IVPB Q6 [facility] PRN Reason: Protocol Stop: 08/21/17 12:01 Last Admin: 08/18/17 12:38 Dose: 200 mls/hr Vancomycin HCl (Vancomycin 1gm) 1 gm in 250 mls @ 167 mls/hr IVPB 0600,1800 [facility] PRN Reason: Protocol Last Admin: 08/18/17 05:56 Dose: 167 mls/hr Lidocaine (Lidoderm) 1 ea TD DAILY [facility] Last Admin: 08/18/17 10:02 Dose: 1 ea Mupirocin (Bactroban Ointment) 0 gm TOP BID [facility] Last Admin: 08/18/17 10:02 Dose: 1 appl Ondansetron HCl (Zofran Inj) 4 mg IVP Q4H PRN; Protocol PRN Reason: Nausea/Vomiting Oxycodone/Acetaminophen (Percocet 10/325 Mg Tab) 1 tab PO Q4H PRN; Protocol PRN Reason: Pain, severe (8-10) Last Admin: 08/17/17 14:22 Dose: 1 tab Oxycodone/Acetaminophen (Percocet 5/325 Mg Tab) 1 tab PO Q4H PRN PRN Reason: Pain, moderate (4-7) Stop: 08/20/17 15:38 Last Admin: 08/18/17 01:40 Dose: 1 tab Pantoprazole Sodium (Protonix Ec Tab) 40 mg PO 0600 [facility] Last Admin: 08/18/17 05:37 Dose: 40 mg - Labs Labs: 08/18/17 06:30 08/18/17 06:30 - Constitutional Appears: Non-toxic, Chronically Ill - Head Exam Head Exam: NORMAL INSPECTION - ENT Exam ENT Exam: Mucous Membranes Moist - Neck Exam Neck Exam: absent: Meningismus - Respiratory Exam Respiratory Exam: Decreased Breath Sounds - Cardiovascular Exam Cardiovascular Exam: +S1, +S2 - GI/Abdominal Exam GI & Abdominal Exam: Soft. absent: Tenderness Additional comments: surgical site with dressings in place, left sided colostomy in place Assessment and Plan - Assessment and Plan (Free Text) Plan: Assessment acute sigmoid diverticulitis, S/P exploratory laparotomy, low anterior resection , end colostomy, appendectomy, bilateral ureteral stent placement POD #9 Plan on Zosyn day 12 - will d/c today; continue Vanco IV day 3 and Bactroban ointment and will continue to monitor clinically - will consider change to PO antibiotics on discharge
--- NOTE | 2017-08-19 13:43 | PN ---
DATE: SUBJECTIVE: I saw Samson sitting out of bed to chair. He is still complaining about the hilda and feels that there is tugging on his abdomen. He is eating, the colostomy is working. He is walking a little bit better, a little bit stronger. MEDICATIONS: He is on Bactroban cream, Lidoderm patch, Lovenox, Percocet, Protonix, vancomycin IV and Zofran. PHYSICAL EXAMINATION: VITAL SIGNS: 98.9 temp, 70 pulse, 116/72 blood pressure, 18 respiratory rate, 97% O2 sat on room air. HEENT: Head is atraumatic, normocephalic. HEART: Regular rate. LUNGS: Clear to auscultation. ABDOMEN: Colostomy is working. Positive bowel sounds, nontender, suture bucio with hidla are in good condition. EXTREMITIES: No edema. LABORATORY DATA: He has 7.3 white count, 12.5 hemoglobin, 37.7 hematocrit, 399 platelets. 140 sodium, potassium is 3.6, BUN 9, creatinine 0.9, GFR is greater than 60, sugar is 108, calcium is 9.2, total bili is 0.5, AST is 31, ALT is 65, alk phos 57, total protein 6.5. ASSESSMENT AND PLAN: He is being seen by Infectious Disease and Surgery. Overall, I think he is improving. I understand tomorrow, Wednesday, they can take the hilda out will be able to go home, less drainage from the surgical site. He is status post acute sigmoid diverticulitis, status post exploratory laparotomy with resection of the colon and colostomy placement for colon mass. He had a bilateral ureteral stent placement. He is on IV antibiotics treatment and postoperative care. Thank you very much. We will check his labs tomorrow. Fabio Shea DO DREW
[2017-08-19] MEDS: Oxycodone/Acetaminophen 5/325 mg Tab PO PRN (16:15)
[2017-08-19] MEDS: Oxycodone/Acetaminophen 10/325 mg Tab PO PRN (19:48)
[2017-08-20] MEDS: Oxycodone/Acetaminophen 10/325 mg Tab PO PRN ×2 (01:51→18:31)
[2017-08-20] MEDS: Enoxaparin 40 mg Syringe SC SCH (05:21)
[2017-08-20] MEDS: Vancomycin 1gm in NS 250ml 1 GM/250 ML BAG IVPB SCH ×2 (05:22→17:41)
[2017-08-20] MEDS: Pantoprazole 40 mg EC Tab PO SCH (05:22)
[2017-08-20 07:29] LABS: HEMOGLOBIN 12.6 g/dL (14.0-18.0); MEAN CELL VOLUME 81.8 fl (80.0-105.0); RBC 4.67 10^6/uL (3.5-6.1); RED CELL DISTRIBUTION WIDTH 14.4 % (11.5-14.5); WHITE BLOOD COUNT 6.7 10^3/ul (4.5-11.0)
[2017-08-20 07:48] LABS: ALBUMIN 3.3 g/dL (3.0-4.8); ALT/SGPT 61 U/L (7-56); AST/SGOT 31 U/L (17-59); BLOOD UREA NITROGEN 10 mg/dL (7-21); CALCIUM 9.5 mg/dL (8.4-10.5); GFR AFRICAN-AMERICAN > 60; GFR NON-AFRICAN AMERICAN > 60
--- NOTE | 2017-08-20 08:18 | PN ---
DATE: SUBJECTIVE: Samson Faust is seen status post low anterior resection and colostomy Ann's procedure. The plan will be to send him home. He will need colonoscopy prior to reversal, but I do not think that is going to be an issue. He will need a barium rectal or Hypaque prior to reversal. We will plan that in the office, but he is doing well, afebrile, vital signs are stable colostomy. José Antonio Wells MD
[2017-08-20] MEDS ORDERED: Oxycodone/Acetaminophen 5/325 mg Tab PO PRN (08:54)
--- NOTE | 2017-08-20 09:45 | CP.PCM.PN ---
Subjective - Date & Time of Evaluation Date of Evaluation: 08/20/17 Time of Evaluation: 09:40 - Subjective Subjective: Surgery: Dr. Wells Patient doing well. Tolerating diet. + ostomy output. No complaints. Objective - Vital Signs/Intake and Output Vital Signs (last 24 hours): Temp Pulse Resp BP Pulse Ox 97.2 F L 83 16 127/77 100 08/19/17 17:48 08/19/17 17:48 08/19/17 17:48 08/19/17 17:48 08/19/17 17:48 - Medications Medications: Current Medications Enoxaparin Sodium (Lovenox) 40 mg SC 0600 [facility] PRN Reason: Protocol Last Admin: 08/20/17 05:21 Dose: 40 mg Vancomycin HCl (Vancomycin 1gm) 1 gm in 250 mls @ 167 mls/hr IVPB 0600,1800 [facility] PRN Reason: Protocol Last Admin: 08/20/17 05:22 Dose: 167 mls/hr Lidocaine (Lidoderm) 1 ea TD DAILY [facility] Last Admin: 08/19/17 10:02 Dose: 1 ea Mupirocin (Bactroban Ointment) 0 gm TOP BID [facility] Last Admin: 08/19/17 17:48 Dose: 1 appl Ondansetron HCl (Zofran Inj) 4 mg IVP Q4H PRN; Protocol PRN Reason: Nausea/Vomiting Oxycodone/Acetaminophen (Percocet 10/325 Mg Tab) 1 tab PO Q4H PRN; Protocol PRN Reason: Pain, severe (8-10) Last Admin: 08/20/17 01:51 Dose: 1 tab Oxycodone/Acetaminophen (Percocet 5/325 Mg Tab) 1 tab PO Q4H PRN; Protocol PRN Reason: Pain, moderate (4-7) Pantoprazole Sodium (Protonix Ec Tab) 40 mg PO 0600 [facility] Last Admin: 08/20/17 05:22 Dose: 40 mg - Labs Labs: 08/20/17 06:30 08/20/17 06:30 - Constitutional Appears: Non-toxic, No Acute Distress - Head Exam Head Exam: ATRAUMATIC, NORMOCEPHALIC - Eye Exam Eye Exam: EOMI, Normal appearance - ENT Exam ENT Exam: Mucous Membranes Moist - Respiratory Exam Respiratory Exam: NORMAL BREATHING PATTERN. absent: Respiratory Distress - Cardiovascular Exam Cardiovascular Exam: REGULAR RHYTHM. absent: Tachycardia - GI/Abdominal Exam GI & Abdominal Exam: Soft. absent: Distended, Guarding, Tenderness, Rebound Additional comments: incisions CDI, 1cm area of incision opening with serous fluid drainage, appropriate. Half hilda removed today. Assessment and Plan - Assessment and Plan (Free Text) Assessment: 36 y/o male s/p LAR w/ end colostomy creation POD10 Plan: -cleared for d/c from surgical standpoint -cont reg diet -will need colonoscopy prior to colostomy reversal -plan for reversal in about 3months post op -follow up with Dr. Wells in 1 week further recs per Dr. Wells [place]ouchet PGY3
[2017-08-20] MEDS: Lidocaine 5% Patch TD SCH (11:18)
--- NOTE | 2017-08-20 14:23 | PN ---
DATE: SUBJECTIVE: I saw Samson resting comfortably in bed. He slept well. He is excited because the hilda will be coming out today by surgery. He is on Bactroban cream, Lidoderm, Lovenox, Percocet, Protonix, vancomycin IV and Zofran. PHYSICAL EXAMINATION VITAL SIGNS: 97.2 temperature, 83 pulse, 127/77 blood pressure, 16 respiratory rate, 100% O2 saturation on room air. HEENT: Head is atraumatic, normocephalic. HEART: Regular rate. LUNGS: Clear to auscultation. ABDOMEN: Positive bowel sounds, soft. Positive colostomy. Positive hilda with an incision. EXTREMITIES: With no edema. NEUROLOGIC: He is in good spirits. LABORATORY DATA: He has 6.7 white count, 12.6 hemoglobin, 38.2 hematocrit, 421,000 platelets. Sodium 141, potassium 3.7, BUN is 10, creatinine 0.8. GFR is greater than 60. Sugar is 109. Calcium is 9.5, total bilirubin is 0.5, AST is 31, ALT 61, alkaline phosphatase total protein 6.7. Overall, he is doing quite well. [place] are coming out today. The plan is to discharge him tomorrow. He will go home, he will be seen in the office. We will fill out paperwork for him for his job. He will need a colonoscopy prior to reversal. colon resection and colostomy. Fabio Shea DO MTDD
--- NOTE | 2017-08-20 18:34 | CP.PCM.PN ---
Subjective - Date & Time of Evaluation Date of Evaluation: 08/20/17 Time of Evaluation: 11:00 - Subjective Subjective: Eating well, still with some abdominal pain but better, no fevers. Objective - Vital Signs/Intake and Output Vital Signs (last 24 hours): Temp Pulse Resp BP Pulse Ox 98.9 F 70 18 116/72 97 08/19/17 06:00 08/19/17 06:00 08/19/17 06:00 08/19/17 06:00 08/19/17 06:00 - Medications Medications: Current Medications Enoxaparin Sodium (Lovenox) 40 mg SC 0600 [facility] PRN Reason: Protocol Last Admin: 08/19/17 05:17 Dose: 40 mg Vancomycin HCl (Vancomycin 1gm) 1 gm in 250 mls @ 167 mls/hr IVPB 0600,1800 [facility] PRN Reason: Protocol Last Admin: 08/19/17 06:01 Dose: 167 mls/hr Lidocaine (Lidoderm) 1 ea TD DAILY [facility] Last Admin: 08/19/17 10:02 Dose: 1 ea Mupirocin (Bactroban Ointment) 0 gm TOP BID [facility] Last Admin: 08/19/17 10:02 Dose: 1 appl Ondansetron HCl (Zofran Inj) 4 mg IVP Q4H PRN; Protocol PRN Reason: Nausea/Vomiting Oxycodone/Acetaminophen (Percocet 10/325 Mg Tab) 1 tab PO Q4H PRN; Protocol PRN Reason: Pain, severe (8-10) Last Admin: 08/17/17 14:22 Dose: 1 tab Oxycodone/Acetaminophen (Percocet 5/325 Mg Tab) 1 tab PO Q4H PRN PRN Reason: Pain, moderate (4-7) Stop: 08/20/17 15:38 Last Admin: 08/18/17 19:57 Dose: 1 tab Pantoprazole Sodium (Protonix Ec Tab) 40 mg PO 0600 [facility] Last Admin: 08/19/17 05:17 Dose: 40 mg - Labs Labs: 08/19/17 07:00 08/19/17 07:00 - Constitutional Appears: Non-toxic, Chronically Ill - Head Exam Head Exam: NORMAL INSPECTION - Neck Exam Neck Exam: absent: Meningismus - Respiratory Exam Respiratory Exam: Decreased Breath Sounds - Cardiovascular Exam Cardiovascular Exam: +S1, +S2 - GI/Abdominal Exam GI & Abdominal Exam: Soft. absent: Tenderness Additional comments: dressings in place, left colostomy in place Assessment and Plan - Assessment and Plan (Free Text) Plan: Assessment acute sigmoid diverticulitis, S/P exploratory laparotomy, low anterior resection , end colostomy, appendectomy, bilateral ureteral stent placement POD #10 Plan S/P Zosyn; continue Vanco IV day 4 and Bactroban ointment and will continue to monitor clinically - will consider change to PO antibiotics on discharge
[2017-08-21] MEDS: Pantoprazole 40 mg EC Tab PO SCH (05:30)
[2017-08-21] MEDS: Vancomycin 1gm in NS 250ml 1 GM/250 ML BAG IVPB SCH (05:31)
[2017-08-21] MEDS: Enoxaparin 40 mg Syringe SC SCH (05:31)
[2017-08-21] MEDS: Oxycodone/Acetaminophen 10/325 mg Tab PO PRN (05:42)
[2017-08-21 07:11] LABS: HEMOGLOBIN 12.7 g/dL (14.0-18.0); MEAN CELL VOLUME 81.9 fl (80.0-105.0); MEAN CORPUSCULAR HEMOGLOBIN 26.7 pg (25.0-35.0); MEAN CORPUSCULAR HGB CONC 32.6 g/dl (31.0-37.0); MEAN PLATELET VOLUME 8.9 fl (7.0-11.0); RBC 4.76 10^6/uL (3.5-6.1); RED CELL DISTRIBUTION WIDTH 14.3 % (11.5-14.5); WHITE BLOOD COUNT 6.4 10^3/ul (4.5-11.0)
[2017-08-21 07:30] LABS: ALBUMIN 3.3 g/dL (3.0-4.8); ALT/SGPT 52 U/L (7-56); AST/SGOT 25 U/L (17-59); BLOOD UREA NITROGEN 8 mg/dL (7-21); CALCIUM 9.2 mg/dL (8.4-10.5); GFR AFRICAN-AMERICAN > 60; GFR NON-AFRICAN AMERICAN > 60
[2017-08-21] MEDS: Lidocaine 5% Patch TD SCH (10:10)
[2017-08-21 10:56] VITALS: PULSE 76; RESP 20; O2SAT 95
[2017-08-21 13:04] VITALS: BP 118/78; TEMP 98.1
--- NOTE | 2017-08-21 15:35 | CP.PCM.PN ---
Subjective - Date & Time of Evaluation Date of Evaluation: 08/21/17 Time of Evaluation: 11:00 - Subjective Subjective: Comfortable, no fevers, not in distress, much improved abdominal pain, eating well, moving bowels, no more leakage from surgical site. Objective - Vital Signs/Intake and Output Vital Signs (last 24 hours): Temp Pulse Resp BP Pulse Ox 98.1 F 76 20 118/78 95 08/21/17 12:00 08/21/17 12:00 08/21/17 12:00 08/21/17 12:00 08/21/17 10:00 - Labs Labs: 08/21/17 06:30 08/21/17 06:30 - Constitutional Appears: Non-toxic, Chronically Ill - Head Exam Head Exam: NORMAL INSPECTION - ENT Exam ENT Exam: Mucous Membranes Moist - Neck Exam Neck Exam: absent: Meningismus - Respiratory Exam Respiratory Exam: Decreased Breath Sounds - Cardiovascular Exam Cardiovascular Exam: +S1, +S2 - GI/Abdominal Exam GI & Abdominal Exam: Soft. absent: Tenderness Additional comments: left sided colostomy, dressings in place Assessment and Plan - Assessment and Plan (Free Text) Plan: Assessment acute sigmoid diverticulitis, S/P exploratory laparotomy, low anterior resection , end colostomy, appendectomy, bilateral ureteral stent placement POD #11 Plan S/P Zosyn; on Vanco IV day 5 and Bactroban ointment and will continue to monitor clinically - can change to PO Doxycycline and Augmenting for another 5 days on discharge
--- NOTE | 2017-08-22 11:23 | DS ---
HISTORY OF PRESENT ILLNESS: I saw him standing up in his room. He looks very well. He is changing his colostomy bag. He is being discharged today, on Bactroban cream, Lidoderm patch, Augmentin 30, Percocet for 4 days, and tramadol 50 mg for 5 days, 10 days of pain meds. He is on Protonix and Zofran will be given. Augmentin and doxycycline by the Infectious Disease doctor. He is eating well. The colostomy is working well. The pain is getting less and PHYSICAL EXAMINATION: VITAL SIGNS: 98.1 temperature, 76 pulse, 118/78 blood pressure, 20 respiratory rate, 95% O2 sat on room air. HEENT: Head: Atraumatic, normocephalic. HEART: Regular rate. LUNGS: Clear to auscultation. ABDOMEN: Positive for colostomy. Incision site is clean. Abdomen, for the most part, is soft. Positive bowel sounds. EXTREMITIES: No edema. LABORATORY DATA: He has a 6.4 white count, 12.7 hemoglobin, 39 hematocrit, 440 platelets. 141 sodium, potassium 3.7, BUN 8, creatinine 0.8, GFR greater than 60, sugar is 105, calcium is 9.2, total bili is 0.3, AST is 25, LFT is 52, alk phos is 53. ASSESSMENT AND PLAN: I am concerned about the elevated blood sugar. They have all been for the part quite around the 100. We will keep an eye in his blood sugars on the outpatient. I will see him in the office in a week. He had colon stricture with colon resection, small bowel mass, and colostomy. Fabio Shea DO MTDD
== END 2017-08-21 14:20 | disposition home or self-care (01) | DRG 389 ==
LOC: TRCU 23:05
PROVIDERS: ADMIT Family Medicine; ATTEND Family Medicine
PROC: F07Z9ZZ Gait Training/Functional Ambulation Treatment (ICD-10-PCS; principal; 2017-08-13)
PROC: F07M6ZZ Therapeutic Exercise Treatment of Musculoskeletal System - Whole Body (ICD-10-PCS; 2017-08-13)
DX: K56.699 Other intestinal obstruction unspecified as to partial versus complete obstruction (principal); K57.32 Diverticulitis of large intestine without perforation or abscess without bleeding; F17.200 Nicotine dependence, unspecified, uncomplicated; Z93.3 Colostomy status; Z90.49 Acquired absence of other specified parts of digestive tract; R73.9 Hyperglycemia, unspecified

== ENCOUNTER 2017-09-24 15:04 | Emergency (ER) | payer BC ==
--- NOTE | 2017-09-24 15:26 | ED PDOC ---
Arrival/HPI - General Time Seen by Provider: 09/24/17 15:06 Historian: Patient - History of Present Illness Narrative History of Present Illness (Text): 09/24/17 15:23 36 year old male, pmh including diverticulitis with colon mass and on the colostomy bag now due to the colon resection, nkda, complaining of urine discoloration for the past 2 days. Pt. stated that he noticed that he has occasional couple episodes of dark color urine for the the past 2 days, called the pmd today and advised to come to the ER for the Urinalysis test, no flank or back pain no hematuria, no urinary symptoms, no palpitation, no rash, eating and drinking well, no rash, no other medical or psychological complaints. Past Medical History - Provider Review Nursing Documentation Reviewed: Yes - Infectious Disease Hx of Infectious Diseases: None - Tetanus Immunization Tetanus Immunization: Unknown - Cardiac Hx Cardiac Disorders: No - Pulmonary Hx Respiratory Disorders: No - Neurological Hx Neurological Disorder: No - HEENT Hx HEENT Disorder: No - Renal Hx Renal Disorder: No - Endocrine/Metabolic Hx Endocrine Disorders: No - Hematological/Oncological Hx Blood Transfusions: No Hx Blood Transfusion Reaction: No - Integumentary Hx Dermatological Disorder: No - Musculoskeletal/Rheumatological Hx Falls: No - Gastrointestinal Hx Gastrointestinal Disorders: Yes (Diverticulitis, Appendectomy) - Genitourinary/Gynecological Hx Genitourinary Disorders: No Hx Reproductive Disorders: No - Psychiatric Hx Psychophysiologic Disorder: No Hx Substance Use: No - Anesthesia Hx Anesthesia Reactions: No Hx Malignant Hyperthermia: No Family/Social History - Physician Review Nursing Documentation Reviewed: Yes Family/Social History: Unknown Family HX Smoking Status: Current Some Days Smoker Hx Alcohol Use: No Hx Substance Use: No Allergies/Home Meds Allergies/Adverse Reactions: Allergies No Known Allergies Allergy (Verified 08/17/17 20:54) Review of Systems - Review of Systems Constitutional: absent: Fatigue, Fevers Eyes: absent: Vision Changes ENT: absent: Hearing Changes Respiratory: absent: SOB, Cough Cardiovascular: absent: Chest Pain Gastrointestinal: absent: Abdominal Pain, Nausea, Vomiting Skin: absent: Rash, Pruritis Neurological: absent: Headache, Dizziness Psychiatric: absent: Anxiety, Depression Physical Exam Vital Signs Reviewed: Yes Vital Signs Temp Pulse Resp BP Pulse Ox 09/24/17 15:14 98.0 F 79 18 147/92 H 98 Temperature: Afebrile Blood Pressure: Hypertensive Pulse: Regular Respiratory Rate: Normal Appearance: Positive for: Well-Appearing, Non-Toxic, Comfortable Pain Distress: None Mental Status: Positive for: Alert and Oriented X 3 - Systems Exam Head: Present: Atraumatic, Normocephalic Pupils: Present: PERRL Extroacular Muscles: Present: EOMI Conjunctiva: Present: Normal Mouth: Present: Moist Mucous Membranes Neck: Present: Normal Range of Motion Respiratory/Chest: Present: Clear to Auscultation, Good Air Exchange. No: Respiratory Distress, Accessory Muscle Use Cardiovascular: Present: Regular Rate and Rhythm, Normal S1, S2. No: Murmurs Abdomen: Present: Other (+colonostomy bag noted with no erythematous or cellulitis noted on the pericolonic region. ). No: Tenderness, Distention, Peritoneal Signs Genitourinary Male: Present: Other (pt. declined. ) Back: Present: Normal Inspection Upper Extremity: Present: Normal Inspection. No: Cyanosis, Edema Lower Extremity: Present: Normal Inspection. No: Edema Neurological: Present: GCS=15, CN II-XII Intact, Speech Normal Skin: Present: Warm, Dry, Normal Color. No: Rashes Psychiatric: Present: Alert, Oriented x 3, Normal Insight, Normal Concentration Medical Decision Making ED Course and Treatment: 09/24/17 15:27 -labs/ua -observe and reassess 09/24/17 16:37 -labs are non-significant -Urinalysis show trace leuko and +hematuria microscopically, will treat with macrobid and advised him to repeat the Urinalysis along with the urologist follow up with Dr. Alegria for further evaluation, no emergent radiology study indicated at this time as he has no pain or discomfort. -Discharge home with macrobid, follow up with your own pmd and urologist Dr. Alegria within 2 days for follow up and repeat after the macrobid antibiotic, return to the Er for any new or worsening signs or symptoms. - Lab Interpretations Lab Results: 09/24/17 15:35 09/24/17 15:35 Lab Results 09/24/17 15:35: Urine Color Dark yellow, Urine Appearance Cloudy, Urine pH 6.5, Ur Specific [place] 1.025, Urine Protein 30 H, Urine Glucose (UA) Negative, Urine Ketones Trace H, Urine Blood Large H, Urine Nitrate Negative, Urine Bilirubin Negative, Urine Urobilinogen 0.2, Ur Leukocyte Esterase Trace H, Urine RBC Tntc, Urine WBC 1 - 3, Ur Epithelial Cells None 09/24/17 15:35: WBC 5.9, RBC 4.68, Hgb 12.6 L, Hct 38.5 L, MCV 82.3, MCH 26.9, MCHC 32.7, RDW 14.9 H, Plt Count 285, MPV 9.2, Gran % 61.8, Lymph % (Auto) 30.3 , [place] % (Auto) 6.2 H, Eos % (Auto) 1.4 L, Baso % (Auto) 0.3, Gran # 3.62, Lymph # (Auto) 1.8, [place] # (Auto) 0.4, Eos # (Auto) 0.1, Baso # (Auto) 0.02 09/24/17 15:35: Sodium 141, Potassium 4.0, Chloride 101, Carbon Dioxide 30, Anion Gap 14, BUN 11, Creatinine 0.8, Est GFR ( Amer) > 60, Est GFR (Non- Af Amer) > 60, Random Glucose 119 H, Calcium 9.5, Total Bilirubin 0.8, AST 29, ALT 34, Alkaline Phosphatase 53, Total Protein 7.0, Albumin 3.8, Globulin 3.2, Albumin/Globulin Ratio 1.2 - PA / POWDER OPERATOR / Resident Statement MD/DO has reviewed & agrees with the documentation as recorded. Disposition/Present on Arrival - Present on Arrival Any Indicators Present on Arrival: No History of DVT/PE: No History of Uncontrolled Diabetes: No Urinary Catheter: No History of Decub. Ulcer: No History Surgical Site Infection Following: None - Disposition Have Diagnosis and Disposition been Completed?: Yes Diagnosis: UTI (urinary tract infection), Hematuria Disposition: HOME/ ROUTINE Disposition Time: 15:27 Patient Plan: Discharge Condition: GOOD Discharge Instructions (ExitCare): Blood in the Urine (Hematuria), Adult (DC), Asymptomatic Bacteriuria, Urinary Tract Infections in Adults Additional Instructions: -Discharge home with macrobid, follow up with your own pmd and urologist Dr. Alegria within 2 days for follow up and repeat after the macrobid antibiotic, return to the Er for any new or worsening signs or symptoms. Prescriptions: Nitrofurantoin Macrocrystals [Macrobid] 100 mg PO BID #14 cap Referrals: Fabio Shea DO [Primary Care Provider] - Follow up with primary Bartolome Alegria MD [Staff Provider] - Follow up with primary Forms: WORK NOTE
[2017-09-24 15:38] VITALS: BP 147/92; PULSE 79; RESP 18; TEMP 98; O2SAT 98; BMI 32.5
[2017-09-24 15:52] LABS: BASO # 0.02 K/mm3 (0.0-2.0); BASO % 0.3 % (0.0-3.0); EOS # 0.1 (0.0-0.7); EOS % 1.4 % (1.5-5.0); GRAN # 3.62 (1.4-6.5); GRAN % 61.8 % (50.0-68.0); HEMOGLOBIN 12.6 g/dL (14.0-18.0); LYMPH # 1.8 (1.2-3.4); LYMPH % 30.3 % (22.0-35.0); MEAN CELL VOLUME 82.3 fl (80.0-105.0); MEAN CORPUSCULAR HEMOGLOBIN 26.9 pg (25.0-35.0); MEAN CORPUSCULAR HGB CONC 32.7 g/dl (31.0-37.0); MEAN PLATELET VOLUME 9.2 fl (7.0-11.0); MONO # 0.4 (0.1-0.6); MONO % 6.2 % (1.0-6.0); PH,URINE 6.5 (4.7-8.0); RBC 4.68 10^6/uL (3.5-6.1); RED CELL DISTRIBUTION WIDTH 14.9 % (11.5-14.5); URINE BILIRUBIN NEGATIVE (NEGATIVE); URINE BLOOD LARGE (NEGATIVE); URINE GLUCOSE (UA) NEGATIVE (NEGATIVE); URINE LEUKOCYTE ESTERASE TRACE Leu/uL (NEGATIVE); URINE PROTEIN 30 mg/dL (<30 mg/dL); URINE UROBILINOGEN 0.2 E.U./dL (<1 E.U./dL); WHITE BLOOD COUNT 5.9 10^3/ul (4.5-11.0)
[2017-09-24 15:53] LABS: URINE APPEARANCE CLOUDY (CLEAR); URINE COLOR DARK YELLOW (YELLOW)
[2017-09-24 16:03] LABS: URINE RBC TNTC /hpf (0-2)
[2017-09-24 16:15] LABS: BLOOD UREA NITROGEN 11 mg/dL (7-21)
[2017-09-24 16:16] LABS: ALB/GLOB RATIO 1.2 (1.1-1.8); ALBUMIN 3.8 g/dL (3.0-4.8); ALT/SGPT 34 U/L (7-56); AST/SGOT 29 U/L (17-59); CALCIUM 9.5 mg/dL (8.4-10.5); GFR AFRICAN-AMERICAN > 60; GFR NON-AFRICAN AMERICAN > 60
== END 2017-09-24 16:49 | disposition home or self-care (01) ==
LOC: ED 15:04
DX: N39.0 Urinary tract infection, site not specified (principal); R31.9 Hematuria, unspecified

== ENCOUNTER 2017-10-14 10:06 | Day surgery (SDC) | payer BC ==
[2017-10-14 10:53] VITALS: RESP 18
[2017-10-14] MEDS ORDERED: Lidocaine 2% Inj (20ml) ONE (12:19)
[2017-10-14] MEDS ORDERED: Propofol 10 mg/ml Inj (20 ML) ONE ×2 (12:19→12:40)
[2017-10-14 12:56] VITALS: TEMP 97.6
[2017-10-14] MEDS ORDERED: Sodium Chloride 0.9% 1,000 ML IV SCH (13:00)
[2017-10-14 13:03] VITALS: PULSE 68
[2017-10-14 13:19] VITALS: O2SAT 100
[2017-10-14 13:54] VITALS: BP 123/64
== END 2017-10-14 14:13 | disposition home or self-care (01) ==
LOC: ENDO 10:06
PROVIDERS: ATTEND Internal Medicine
DX: K57.30 Diverticulosis of large intestine without perforation or abscess without bleeding (principal); K62.89 Other specified diseases of anus and rectum; K64.8 Other hemorrhoids
CPT/HCPCS: 45380; 88305; J2704; J7040 ×2

== ENCOUNTER 2017-11-22 06:11 | Inpatient (IN) | payer BC ==
[2017-11-22 06:44] VITALS: BMI 32.5
[2017-11-22] MEDS ORDERED: metroNIDAZOLE IV 500 mg/100 ml 0 MG/0 ML BAG ONE (07:13)
[2017-11-22] MEDS ORDERED: Bupivacaine 0.5% Inj(30mL) ONE (07:13)
[2017-11-22] MEDS ORDERED: Propofol 10 mg/ml Inj (20 ML) ONE (07:39)
[2017-11-22] MEDS ORDERED: Midazolam 2 MG/2 ML VIAL ONE (07:40)
[2017-11-22] MEDS ORDERED: Rocuronium 10 mg/ml (5 ml) ONE (07:40)
[2017-11-22] MEDS ORDERED: ePHEDrine 50 mg/ml Inj ONE (09:00)
[2017-11-22] MEDS ORDERED: Bupivacaine Liposomal Inj 20 ml ONE (10:30)
[2017-11-22] MEDS ORDERED: HYDROmorphone 0.5 mg/0.5 ml ISec IVP PRN (13:06)
--- NOTE | 2017-11-22 13:09 | PCM.SURG1 ---
Surgeon's Initial Post Op Note - Surgeon's Notes Surgeon: Dr. Wells French Translator: Nabila Tobias, PGY3; Alicia Jimenez, PGY2 Type of Anesthesia: General Endo Pre-Operative Diagnosis: colostomy s/p colectomy for diverticulitis and stricture Operative Findings: Numerous adhesions of the small bowel to the colon of the colostomy, no tension on the proximal colon at the anasatmosis. Anastamosis was patent but sealed well with no air leak demonstrated in the leak test. Two areas of serosa tearing on the small bowel without enterotomy oversewed intraoperatively Post-Operative Diagnosis: same Operation Performed: reversal of end colostomy with low pelvic anastamosis, insertion of zavaleta catheter, extensive lysis of adhesions Specimen/Specimens Removed: colostomy distal end and skin Estimated Blood Loss: EBL {In ML}: 200 Blood Products Given: N/A Drains Used: Ankit Post-Op Condition: Fair Date of Surgery/Procedure: 11/22/17 Time of Surgery/Procedure: 08:00
[2017-11-22] MEDS ORDERED: Lactated Ringer's 1,000 ML IV SCH (13:15)
[2017-11-22] MEDS ORDERED: HYDROmorphone 0.5 mg/0.5 ml ISec ONE (14:06)
[2017-11-22] MEDS ORDERED: HYDROmorphone 0.5 mg/0.5 ml ISec IVP ONE (14:09)
[2017-11-22] MEDS: Lactated Ringer's 1,000 ML IV SCH ×2 (14:58→21:47)
[2017-11-22 16:01] LABS: GRAN # 13.12 (1.4-6.5); GRAN % 94.1 % (50.0-68.0); HEMOGLOBIN 14.1 g/dL (14.0-18.0); LYMPH # 0.5 (1.2-3.4); LYMPH % 3.7 % (22.0-35.0); MEAN CELL VOLUME 82.4 fl (80.0-105.0); MEAN CORPUSCULAR HEMOGLOBIN 27.3 pg (25.0-35.0); MEAN CORPUSCULAR HGB CONC 33.2 g/dl (31.0-37.0); MEAN PLATELET VOLUME 8.9 fl (7.0-11.0); MONO # 0.3 (0.1-0.6); MONO % 2.2 % (1.0-6.0); PLATELET COUNT 260 10^3/uL (120.0-450.0); RBC 5.16 10^6/uL (3.5-6.1); RED CELL DISTRIBUTION WIDTH 14.5 % (11.5-14.5); WHITE BLOOD COUNT 13.9 10^3/ul (4.5-11.0)
[2017-11-22 16:14] LABS: ALB/GLOB RATIO 1.3 (1.1-1.8); ALBUMIN 3.8 g/dL (3.0-4.8); ALT/SGPT 27 U/L (7-56); AMYLASE 47 U/L (35-125); AST/SGOT 36 U/L (17-59); BLOOD UREA NITROGEN 9 mg/dL (7-21); CALCIUM 8.6 mg/dL (8.4-10.5); GFR AFRICAN-AMERICAN > 60; GFR NON-AFRICAN AMERICAN > 60
[2017-11-22 16:28] LABS: BAND 2 % (0-2); LYMPHOCYTE 2 % (22.0-35.0); MONOCYTE 4 % (1.0-6.0); NEUTROPHIL 92 % (50.0-70.0)
[2017-11-22 16:29] LABS: PLATELET ESTIMATE NORMAL (NORMAL)
[2017-11-22] MEDS: HYDROmorphone 0.5 mg/0.5 ml ISec IVP PRN ×3 (17:11→23:54)
[2017-11-22 18:39] LABS: URINE BILIRUBIN NEGATIVE (NEGATIVE); URINE BLOOD TRACE-INTACT (NEGATIVE); URINE GLUCOSE (UA) NEGATIVE (NEGATIVE); URINE LEUKOCYTE ESTERASE NEGATIVE Leu/uL (NEGATIVE); URINE PROTEIN NEGATIVE mg/dL (<30 mg/dL); URINE UROBILINOGEN 0.2 E.U./dL (<1 E.U./dL)
[2017-11-22 18:45] LABS: URINE APPEARANCE CLEAR (CLEAR); URINE COLOR YELLOW (YELLOW)
[2017-11-22 18:55] LABS: URINE RBC 0 - 2 /hpf (0-2)
[2017-11-22 18:56] LABS: URINE BACTERIA FEW (NEG); URINE EPITHELIAL CELLS 0 - 2 /hpf (0-5); URINE WBC 0 - 2 /hpf (0-6)
[2017-11-22 22:06] LABS: HEPATITIS B SURFACE AG Negative (NEGATIVE)
[2017-11-22 22:08] LABS: HEPATITIS B SURFACE AG Negative (NEGATIVE)
[2017-11-22 22:12] LABS: HEPATITIS A IGM NEGATIVE (NEGATIVE); HEPATITIS B CORE AB NEGATIVE (NEGATIVE)
[2017-11-22 22:24] LABS: HEPATITIS C ANTIBODY NEGATIVE (NEGATIVE)
[2017-11-23] MEDS: Lactated Ringer's 1,000 ML IV SCH ×2 (04:42→21:53)
[2017-11-23 06:54] LABS: HEMOGLOBIN 12.8 g/dL (14.0-18.0); MEAN CELL VOLUME 82.3 fl (80.0-105.0); MEAN CORPUSCULAR HEMOGLOBIN 26.7 pg (25.0-35.0); MEAN CORPUSCULAR HGB CONC 32.4 g/dl (31.0-37.0); MEAN PLATELET VOLUME 9.3 fl (7.0-11.0); RBC 4.8 10^6/uL (3.5-6.1); RED CELL DISTRIBUTION WIDTH 14.7 % (11.5-14.5); WHITE BLOOD COUNT 12.7 10^3/ul (4.5-11.0)
[2017-11-23 07:56] LABS: ALB/GLOB RATIO 1.2 (1.1-1.8); ALBUMIN 3.1 g/dL (3.0-4.8); ALT/SGPT 28 U/L (7-56); AST/SGOT 27 U/L (17-59); BLOOD UREA NITROGEN 9 mg/dL (7-21); CALCIUM 7.9 mg/dL (8.4-10.5); GFR AFRICAN-AMERICAN > 60; GFR NON-AFRICAN AMERICAN > 60
--- NOTE | 2017-11-23 08:57 | OP ---
PROCEDURE DATE: 11/22/2017 SURGEON: José Antonio Wells MD GRANTS DIRECTOR: Dr. Dahl.. PREOPERATIVE DIAGNOSIS: Colostomy. PROCEDURE: Ann's procedure status post diverticulitis with perforation. ESTIMATED BLOOD LOSS: About 200 mL. DESCRIPTION OF PROCEDURE: In the operating room, the patient was identified by name, name of the procedure, laterality, my monica, the consent, wristband, and number. The patient had a preoperative bowel prep, colonoscopy which was negative except for some diverticuli, CAT scan was unremarkable. The patient was placed in the supine position and after the acceptable timeout, prepped with chlorhexidine, waiting 3 minutes the abdomen and perineum were prepped using AIR POLLUTION AUDITOR stirrups. The old scar was excised after the successful timeout and after the sigmoidoscopy was performed showed a pretty good bowel prep. The anus was dilated to two fingers. The abdomen was entered, there was a lot of fibrosis between the skin and the fascia and above the umbilicus, the abdomen was entered, there was a clean plain. This allowed us to do the circumferential dissection, loops of bowel laterally were taken down to the ostomy. There was one loop of bowel that was densely stuck there. This was dissected and we left alone for a while and came back later. Into the pelvis, loops of bowel were dissected freely and brought up and out of the pelvis and the Bookwalter was placed. There was some bleeding that required sutures and cautery as necessary. Eventually, a small bowel was taken out very nicely. The pelvis was very clean. The were placed in the rectum to push up the rectum, which was hard to find per se. Posterior to the rectum, seemed to be a diverticulum, which we seriously avoided. Ureters were identified on either side, but not dissected, they were well away from our dissection. The line of Toldt was taken down superiorly above the ostomy and the ostomy was taken down starting at the skin and then through the peritoneum. The superior portion was very densely adhered and some bleeding was identified and this required suture ligation and cautery as necessary. Eventually, ostomy came down nicely having previously sutured the skin; to close it, used the Ioban. The sigmoid was seen to fall into the pelvis without further dissection. Circumferential dissection at the ostomy itself allowed placement of an automatic stitch retort or condenser press operator, this was applied. The ostomy was dilated up to a 31, but not beyond. The Anvil was then placed and the area was cleaned to give a good circumferential area around it to close. Going to he pelvis, the number 33 stapler was placed, it was seen to come through the anterior portion of the rectum well away from the bladder and away from the ostomy from the diverticulum. Eventually, he was brought down and clicked into the proximal colon without issue and without tension. It was fired. The rings were fine. The superior ring was a little weak on the anterolateral side, but it was intact, distally the rings were beautiful. The omentum was eventually put down into this area, a tacking stitch was applied. The ostomy site was closed with a running #1 Novafil. The area was closed with Vicryl. Ankit was placed. The small bowel was run. There was nothing remarkable. The operation was well placed. The incisions were eventually closed with 40 mL of Exparel, closed with #1 PDS above and below, tied in the middle, closed with Vicryl and hilda. Teixeira was placed, it was changed at the end of the case and the patient taken to the recovery room in good condition after sponge and needle count was declared correct. José Antonio Wells MD
[2017-11-23] MEDS: Enoxaparin 40 mg Syringe SC SCH (09:33)
[2017-11-23] MEDS: HYDROmorphone 0.5 mg/0.5 ml ISec IVP PRN (10:43)
--- NOTE | 2017-11-23 11:28 | CP.PCM.PN ---
Subjective - Date & Time of Evaluation Date of Evaluation: 11/23/17 Time of Evaluation: 06:45 - Subjective Subjective: Surgery: Dr. Wells Pt seen and examined. No acute overnight events. Pt is POD#1 from Mosqueda's reversal. States he feels well and his pain is well controlled. He denies having any episodes of N/V overnight. Denies F/C. Objective - Vital Signs/Intake and Output Vital Signs (last 24 hours): Temp Pulse Resp BP Pulse Ox 99.2 F 86 20 127/76 97 11/23/17 06:00 11/23/17 06:00 11/23/17 06:00 11/23/17 06:00 11/23/17 06:00 Intake and Output: 11/23/17 11/23/17 06:59 18:59 Intake Total 2180 Output Total 2615 Balance -435 - Medications Medications: Current Medications Acetaminophen (Tylenol 325mg Tab) 650 mg PO Q6H PRN PRN Reason: Fever >100.4 F Enoxaparin Sodium (Lovenox) 40 mg SC Q24H [facility] PRN Reason: Protocol Last Admin: 11/23/17 09:33 Dose: 40 mg Hydromorphone HCl (Dilaudid) 1 mg IVP Q3H PRN PRN Reason: Pain, severe (8-10) Last Admin: 11/23/17 10:43 Dose: 1 mg Lactated Ringer's (Lactated Ringer's) 1,000 mls @ 125 mls/hr IV .Q8H [facility] Last Admin: 11/23/17 04:42 Dose: 125 mls/hr Ketorolac Tromethamine (Toradol) 15 mg IVP Q6H [facility] Stop: 11/27/17 13:31 Last Admin: 11/23/17 09:34 Dose: 15 mg Ondansetron HCl (Zofran Inj) 4 mg IVP Q4H PRN PRN Reason: Nausea/Vomiting - Labs Labs: 11/23/17 06:20 11/23/17 06:20 - Constitutional Appears: Well, No Acute Distress - Head Exam Head Exam: ATRAUMATIC, NORMOCEPHALIC - Eye Exam Eye Exam: Normal appearance - ENT Exam ENT Exam: Mucous Membranes Moist - Respiratory Exam Respiratory Exam: NORMAL BREATHING PATTERN - Cardiovascular Exam Cardiovascular Exam: RRR - GI/Abdominal Exam GI & Abdominal Exam: Soft, Tenderness (around midline incision; dressing clean/ dry/intact. Galen drain with sanguinous output ). absent: Distended, Guarding - Neurological Exam Neurological Exam: Alert, Awake, Oriented x3 - Skin Skin Exam: Dry, Intact, Warm Assessment and Plan - Assessment and Plan (Free Text) Assessment: 36M s/p Mosqueda's reversal with low pelvic anastomosis; POD#1 Plan: - DC zavaleta with f/u void check - Ok to start CLD; will advance slowly with return of bowel function - monitor galen output - Encourage ambulation & incentive spirometry - d/w Dr. Russell Tobias, PGY-3
[2017-11-23] MEDS ORDERED: HYDROmorphone 1 mg/ml ISec IVP PRN (15:43)
--- NOTE | 2017-11-23 18:06 | CON ---
DATE: HISTORY OF PRESENT ILLNESS: I have been seeing Samson petty for the past few months in the office. About 3 months ago, he had a colostomy placed by Dr. Wells, the surgeon for diverticulitis and now he is status post colostomy reversal. He is a 36-year-old man, who is doing quite well, status post colostomy reversal. He has a drain in. He is having some clear fluids and IV medicines are running. FAMILY HISTORY: He has no known family history. SOCIAL HISTORY: He is trying to quit smoking. No alcohol. No substance abuse. ALLERGIES: NO KNOWN DRUG ALLERGIES. PAST SURGICAL HISTORY: This is the second surgery. The first one was the colostomy. REVIEW OF SYSTEMS: He has no acute vision or hearing changes. No sore throat. No neck pain. No chest pain. No palpitations. No shortness of breath or cough. There is abdominal pain, status post surgery with a drain in, but not as bad as the first surgery. No nausea or vomiting. He is eating a little water. No edema. He moves all four extremities. No anxiety, depression, sweating or tremors. PHYSICAL EXAMINATION: VITAL SIGNS: He has a 99.2 temp, 86 pulse, 127/76 blood pressure, 20 respiratory rate, 97% O2 sat on 2 L. HEENT: His head is atraumatic, normocephalic. Extraocular muscles are intact. Pupils are equal and reactive to light and accommodation. Throat is moist. NECK: Supple. HEART: Regular rate. Normal S1, S2. LUNGS: Decreased breath sounds, but clear to auscultation, poor inspiration secondary to the surgery. He is got the incentive spirometry. I encouraged him to use it. ABDOMEN: He is status post colostomy reversal with a drain in place. Decreased bowel sounds. EXTREMITIES: No edema. Tyroid midline. No palpable lymphadenopathy appreciated. NEUROLOGIC: GCS is 15. Cranial nerves II through XII are grossly intact. LABORATORY DATA: He had test done. He has a 12.7 white count, it was 13.9 yesterday, 12.8 hemoglobin, 39.5 hematocrit with a 275 platelets. Sodium 141, potassium 3.6, BUN 9, creatinine 0.8. GFR is greater than 60, sugar is 108, calcium is 7.9, total bili is 0.9. AST is 27, ALT is 20, alk phos 40, albumin is 3.1. Urine so far clean. Hepatitis, RPR, HIV all nonreactive. MEDICATIONS: He is currently on Dilaudid, lactated Ringer's, Lovenox, Toradol, Tylenol, Zofran. He did get some Zosyn. PLAN: We will check his labs tomorrow. Continue to follow along. He is a patient of mine. He had colostomy reversal with diverticulitis. He did have a temperature. His white count is 13 and now it is down to 12. We will keep an eye on that. Hopefully, it will just go away. If it does not, we did get antibiotics involved. We will keep a close eye on that. Get him out of bed to chair . Diet as per Surgery and so as the drain. Fabio Shea DO
[2017-11-24] MEDS: Lactated Ringer's 1,000 ML IV SCH (05:35)
[2017-11-24 07:07] LABS: HEMOGLOBIN 11.8 g/dL (14.0-18.0); MEAN CELL VOLUME 82.3 fl (80.0-105.0); MEAN CORPUSCULAR HEMOGLOBIN 26.8 pg (25.0-35.0); MEAN CORPUSCULAR HGB CONC 32.6 g/dl (31.0-37.0); MEAN PLATELET VOLUME 9.6 fl (7.0-11.0); RBC 4.4 10^6/uL (3.5-6.1); RED CELL DISTRIBUTION WIDTH 14.4 % (11.5-14.5); WHITE BLOOD COUNT 9.6 10^3/ul (4.5-11.0)
[2017-11-24 07:41] LABS: ALT/SGPT 24 U/L (7-56); AST/SGOT 25 U/L (17-59); BLOOD UREA NITROGEN 10 mg/dL (7-21); CALCIUM 8.3 mg/dL (8.4-10.5); GFR AFRICAN-AMERICAN > 60; GFR NON-AFRICAN AMERICAN > 60
[2017-11-24] MEDS: Enoxaparin 40 mg Syringe SC SCH (09:32)
[2017-11-24] MEDS ORDERED: Lactated Ringer's 1,000 ML IV SCH (10:32)
[2017-11-24] MEDS ORDERED: HYDROmorphone 0.5 mg/0.5 ml ISec IVP PRN (11:59)
--- NOTE | 2017-11-24 12:00 | CP.PCM.PN ---
Subjective - Date & Time of Evaluation Date of Evaluation: 11/24/17 Time of Evaluation: 09:30 - Subjective Subjective: Patient seen and examined this AM. patient denies any nausea or vomiting, tolerating CLD and passing gas,tolerating pain on current regimen. After flatus this AM patient had small amount of bright red blood and mucus per rectum Objective - Vital Signs/Intake and Output Vital Signs (last 24 hours): Temp Pulse Resp BP Pulse Ox 98.7 F 98 H 20 144/92 H 93 L 11/24/17 06:00 11/24/17 06:00 11/24/17 06:00 11/24/17 06:00 11/24/17 06:00 Intake and Output: 11/24/17 11/24/17 06:59 18:59 Intake Total 3300 Output Total 850 Balance 2450 - Medications Medications: Current Medications Acetaminophen (Tylenol 325mg Tab) 650 mg PO Q6H PRN PRN Reason: Fever >100.4 F Enoxaparin Sodium (Lovenox) 40 mg SC Q24H [facility] PRN Reason: Protocol Last Admin: 11/24/17 09:32 Dose: 40 mg Hydromorphone HCl (Dilaudid) 1 mg IVP Q3H PRN PRN Reason: Pain, severe (8-10) Last Admin: 11/23/17 16:02 Dose: 1 mg Lactated Ringer's (Lactated Ringer's) 1,000 mls @ 75 mls/hr IV .[id number] [facility] Ketorolac Tromethamine (Toradol) 15 mg IVP Q6H [facility] Stop: 11/27/17 13:31 Last Admin: 11/24/17 09:31 Dose: 15 mg Ondansetron HCl (Zofran Inj) 4 mg IVP Q4H PRN PRN Reason: Nausea/Vomiting Pantoprazole Sodium (Protonix Inj) 40 mg IVP DAILY [facility] Last Admin: 11/24/17 09:31 Dose: 40 mg - Labs Labs: 11/24/17 06:40 11/24/17 06:40 - Constitutional Appears: Well, Non-toxic, No Acute Distress - Head Exam Head Exam: ATRAUMATIC, NORMOCEPHALIC - Eye Exam Eye Exam: Normal appearance. absent: Conjunctival injection, Scleral icterus - ENT Exam ENT Exam: Mucous Membranes Moist, Normal Oropharynx - Respiratory Exam Respiratory Exam: NORMAL BREATHING PATTERN. absent: Accessory Muscle Use, Respiratory Distress - Cardiovascular Exam Cardiovascular Exam: RRR - GI/Abdominal Exam GI & Abdominal Exam: Soft. absent: Distended, Tenderness (dominik-incisional and LLQ), Rebound - Extremities Exam Extremities Exam: absent: Calf Tenderness, Pedal Edema, Tenderness - Neurological Exam Neurological Exam: Alert, Awake, Oriented x3 - Psychiatric Exam Psychiatric exam: Normal Affect, Normal Mood - Skin Skin Exam: Dry, Intact, Normal Color, Warm Assessment and Plan - Assessment and Plan (Free Text) Assessment: 36M POD#2 s/p reversal of colostomy with primary low pelvic anastamosis Plan: Advance diet to FLD, will monitor tolerance Encourage PO fluid intake--decreas IVF to 75cc/h, Will D/C when UOP adequate Encourage ambulation PRN pain and nausea medication DVT ppx protonix for GERD symptoms Discussed with DR. Russell Jimenez, PGY
--- NOTE | 2017-11-24 13:50 | PN ---
DATE: 11/24/2017 SUBJECTIVE: I saw him sitting out of bed in a geriatric chair. He said he walked today. He is also passing gas. He is also taking fluids well and he is using the incentive spirometry for his breathing. He is status post colostomy reversal. He is doing remarkably well. He has also a drain in, which is draining some blood. He is on Dilaudid, lactated Ringer, Lovenox, Protonix, Toradol, Tylenol, and Zofran. OBJECTIVE: VITAL SIGNS: He has a 98.7 temperature, 98 pulse, 144/92 blood pressure, 20 respiratory rate, 92% O2 sat on room air. We will keep an eye on the blood pressure. HEENT: His head is atraumatic and normocephalic. Throat is moist. NECK: Supple. HEART: Regular rate. LUNGS: Decreased breath sounds, but clear. ABDOMEN: May be mildly distended, drain in place. Hard to hear any bowel sounds with the bandages, but he is definitely improving. He is passing gas. EXTREMITIES: No edema in the legs. LABORATORY DATA: He has a 9.6 white count 11.8 hemoglobin, 36.2 hematocrit with 269 platelets. He has 141 sodium, potassium of 3.4 and we will replace the potassium. BUN is 10, creatinine 0.9. GFR is greater than 60. Sugar is 100. Calcium is 8.3. Total bilirubin is 0.8, AST is 25, ALT is 24, alkaline phosphatase 47, total protein is 5.9. Urine was clean. Serology was clean. ASSESSMENT AND PLAN: We will continue with aggressive treatment and care status post colostomy reversal. We will see what Surgery wants to do as far as increasing his diet, but I am happy with his walking and I am happy with using incentive spirometry. I encouraged him to keep doing what he is doing. He is passing gas. Fabio Shea DO MTDJim
[2017-11-25 06:51] LABS: HEMOGLOBIN 11.7 g/dL (14.0-18.0); MEAN CELL VOLUME 81.7 fl (80.0-105.0); MEAN CORPUSCULAR HEMOGLOBIN 26.8 pg (25.0-35.0); MEAN CORPUSCULAR HGB CONC 32.8 g/dl (31.0-37.0); MEAN PLATELET VOLUME 8.9 fl (7.0-11.0); RBC 4.37 10^6/uL (3.5-6.1); RED CELL DISTRIBUTION WIDTH 14.2 % (11.5-14.5); WHITE BLOOD COUNT 7.1 10^3/ul (4.5-11.0)
[2017-11-25 07:03] LABS: ALT/SGPT 27 U/L (7-56); AST/SGOT 21 U/L (17-59); BLOOD UREA NITROGEN 9 mg/dL (7-21); CALCIUM 8.3 mg/dL (8.4-10.5); GFR AFRICAN-AMERICAN > 60; GFR NON-AFRICAN AMERICAN > 60
--- NOTE | 2017-11-25 10:19 | PN ---
DATE: 11/25/2017 SUBJECTIVE: I saw him sitting out of bed in a tera chair. He has a drain in, scant blood if any in it. He is passing gas. He is only on liquids. He is taking Dilaudid, lactated Ringer's, Lovenox, some Percocets, potassium replacement, Protonix, Toradol, acetaminophen and Zofran, he is using incentive spirometry. He asked for a bedside commode which is easier for him. OBJECTIVE: VITAL SIGNS: He has 98.3 temperature, 82 pulse, 135/82 blood pressure, 20 respiratory rate, 96% O2 saturation on room air. HEENT: Head is atraumatic, normocephalic. Throat is moist. NECK: Supple. HEART: Regular rate. LUNGS: Decreased breath sounds, but clear. ABDOMEN: Decreased bowel sounds are present, drains in place. Soft, nontender. No guarding. EXTREMITIES: No edema. DATA: He has a 7.1 white count, 11.7 hemoglobin, 35.7 hematocrit with 257 platelets. Sodium 143, potassium 3.6, chloride 103, BUN 9, creatinine 0.8. GFR is greater than 60. Sugar is 97,calcium is 8.3. Total bili is 1, AST 21, ALT is 27, alkaline phosphatase 44, total protein is 6. He is being seen by Surgery. I am hoping increase his diet. He wants to eat more. He is walking. He is passing gas. Continue with aggressive postop care and diet change as to Surgery. We will check his labs tomorrow. I encouraged incentive spirometry and walking. Fabio Shea DO MTDD
[2017-11-25] MEDS: Enoxaparin 40 mg Syringe SC SCH (10:42)
--- NOTE | 2017-11-25 11:37 | CP.PCM.PN ---
Subjective - Date & Time of Evaluation Date of Evaluation: 11/25/17 Time of Evaluation: 06:30 Objective - Vital Signs/Intake and Output Vital Signs (last 24 hours): Temp Pulse Resp BP Pulse Ox 98.3 F 82 20 135/83 96 11/25/17 06:00 11/25/17 06:00 11/25/17 06:00 11/25/17 06:00 11/25/17 06:00 Intake and Output: 11/25/17 11/25/17 06:59 18:59 Intake Total 2520 Output Total 1090 5 Balance 1430 -5 - Medications Medications: Current Medications Acetaminophen (Tylenol 325mg Tab) 650 mg PO Q6H PRN PRN Reason: Fever >100.4 F Enoxaparin Sodium (Lovenox) 40 mg SC Q24H [facility] PRN Reason: Protocol Last Admin: 11/25/17 10:42 Dose: 40 mg Hydromorphone HCl (Dilaudid) 0.5 mg IVP Q4H PRN PRN Reason: Pain, severe (8-10) Lactated Ringer's (Lactated Ringer's) 1,000 mls @ 75 mls/hr IV .[id number] [facility] Last Admin: 11/25/17 02:30 Dose: 75 mls/hr Ketorolac Tromethamine (Toradol) 15 mg IVP Q6H [facility] Stop: 11/27/17 13:31 Last Admin: 11/25/17 08:07 Dose: 15 mg Ondansetron HCl (Zofran Inj) 4 mg IVP Q4H PRN PRN Reason: Nausea/Vomiting Oxycodone/Acetaminophen (Percocet 5/325 Mg Tab) 2 tab PO Q4H PRN PRN Reason: Pain, moderate (4-7) Stop: 11/27/17 11:59 Pantoprazole Sodium (Protonix Inj) 40 mg IVP DAILY [facility] Last Admin: 11/25/17 10:40 Dose: 40 mg - Labs Labs: 11/25/17 06:20 11/25/17 06:20
--- NOTE | 2017-11-25 11:42 | CP.PCM.PN ---
Subjective - Date & Time of Evaluation Date of Evaluation: 11/25/17 Time of Evaluation: 07:00 - Subjective Subjective: Surgery: Dr. Wells Pt seen and examined. No acute overnight events. States he's feeling well & pain is well controlled. He admits to flatus but denies BM. Denies N/V, F/C. Pt is out of bed & ambulating. Objective - Vital Signs/Intake and Output Vital Signs (last 24 hours): Temp Pulse Resp BP Pulse Ox 98.3 F 82 20 135/83 96 11/25/17 06:00 11/25/17 06:00 11/25/17 06:00 11/25/17 06:00 11/25/17 06:00 Intake and Output: 11/25/17 11/25/17 06:59 18:59 Intake Total 2520 Output Total 1090 5 Balance 1430 -5 - Medications Medications: Current Medications Acetaminophen (Tylenol 325mg Tab) 650 mg PO Q6H PRN PRN Reason: Fever >100.4 F Enoxaparin Sodium (Lovenox) 40 mg SC Q24H [facility] PRN Reason: Protocol Last Admin: 11/25/17 10:42 Dose: 40 mg Hydromorphone HCl (Dilaudid) 0.5 mg IVP Q4H PRN PRN Reason: Pain, severe (8-10) Lactated Ringer's (Lactated Ringer's) 1,000 mls @ 75 mls/hr IV .[id number] [facility] Last Admin: 11/25/17 02:30 Dose: 75 mls/hr Ketorolac Tromethamine (Toradol) 15 mg IVP Q6H [facility] Stop: 11/27/17 13:31 Last Admin: 11/25/17 08:07 Dose: 15 mg Ondansetron HCl (Zofran Inj) 4 mg IVP Q4H PRN PRN Reason: Nausea/Vomiting Oxycodone/Acetaminophen (Percocet 5/325 Mg Tab) 2 tab PO Q4H PRN PRN Reason: Pain, moderate (4-7) Stop: 11/27/17 11:59 Pantoprazole Sodium (Protonix Inj) 40 mg IVP DAILY [facility] Last Admin: 11/25/17 10:40 Dose: 40 mg - Labs Labs: 11/25/17 06:20 11/25/17 06:20 - Constitutional Appears: Well, No Acute Distress - Head Exam Head Exam: ATRAUMATIC, NORMOCEPHALIC - Eye Exam Eye Exam: Normal appearance - Respiratory Exam Respiratory Exam: NORMAL BREATHING PATTERN - Cardiovascular Exam Cardiovascular Exam: RRR - GI/Abdominal Exam GI & Abdominal Exam: Soft, Tenderness (around midline incision, C/D/I with hilda in place. Ankit with serosang output ). absent: Distended, Guarding, Rebound - Extremities Exam Extremities Exam: Full ROM - Neurological Exam Neurological Exam: Alert, Awake, Oriented x3 - Skin Skin Exam: Dry, Warm Assessment and Plan - Assessment and Plan (Free Text) Assessment: 36M s/p Mosqueda's reversal with low pelvic anastomosis; POD#3 Plan: - advance to soft heart healthy diet - monitor drain output - encourage ambulation - monitor bowel function - d/w Dr. Russell Tobias, PGY-3
--- NOTE | 2017-11-25 15:26 | PN ---
DATE: 11/25/2017 SUBJECTIVE: Samson Faust is seen. His Anthony-Byrne is draining minimally. He is passing large amount of flatus, but no recent bowel movements. Abdomen is soft. He needs to move around a little bit, but in general well pleased with his progress. José Antonio Wells MD
[2017-11-25] MEDS: Oxycodone/Acetaminophen 5/325 mg Tab PO PRN (19:10)
[2017-11-26] MEDS: Oxycodone/Acetaminophen 5/325 mg Tab PO PRN ×2 (03:36→12:00)
[2017-11-26 07:04] LABS: HEMOGLOBIN 11.6 g/dL (14.0-18.0); MEAN CELL VOLUME 81.4 fl (80.0-105.0); MEAN CORPUSCULAR HEMOGLOBIN 26.6 pg (25.0-35.0); MEAN CORPUSCULAR HGB CONC 32.7 g/dl (31.0-37.0); RBC 4.36 10^6/uL (3.5-6.1); RED CELL DISTRIBUTION WIDTH 14.1 % (11.5-14.5); WHITE BLOOD COUNT 5.8 10^3/ul (4.5-11.0)
[2017-11-26 07:36] LABS: ALB/GLOB RATIO 1.1 (1.1-1.8); ALBUMIN 3.1 g/dL (3.0-4.8); ALT/SGPT 19 U/L (7-56); AST/SGOT 19 U/L (17-59); BLOOD UREA NITROGEN 12 mg/dL (7-21); CALCIUM 8.4 mg/dL (8.4-10.5); GFR AFRICAN-AMERICAN > 60; GFR NON-AFRICAN AMERICAN > 60
[2017-11-26 07:42] VITALS: RESP 20
--- NOTE | 2017-11-26 08:48 | CP.PCM.PN ---
Subjective - Date & Time of Evaluation Date of Evaluation: 11/26/17 Time of Evaluation: 08:39 - Subjective Subjective: Surgery: Dr. Wells Pt seen and examined. States he feels well & pain is well controlled. Pt is tolerating a soft diet & admits to flatus/BM. Denies N/V, F/C. Objective - Vital Signs/Intake and Output Vital Signs (last 24 hours): Temp Pulse Resp BP Pulse Ox 98.7 F 72 20 149/93 H 97 11/26/17 06:00 11/26/17 06:00 11/26/17 06:00 11/26/17 06:00 11/26/17 06:00 Intake and Output: 11/26/17 11/26/17 06:59 18:59 Intake Total 840 Output Total 15 Balance 825 - Medications Medications: Current Medications Acetaminophen (Tylenol 325mg Tab) 650 mg PO Q6H PRN PRN Reason: Fever >100.4 F Docusate Sodium (Colace) 100 mg PO BID [facility] Last Admin: 11/25/17 17:15 Dose: 100 mg Enoxaparin Sodium (Lovenox) 40 mg SC Q24H [facility] PRN Reason: Protocol Last Admin: 11/25/17 10:42 Dose: 40 mg Ketorolac Tromethamine (Toradol) 15 mg IVP Q6H [facility] Stop: 11/27/17 13:31 Last Admin: 11/26/17 08:22 Dose: Not Given Ondansetron HCl (Zofran Inj) 4 mg IVP Q4H PRN PRN Reason: Nausea/Vomiting Oxycodone/Acetaminophen (Percocet 5/325 Mg Tab) 2 tab PO Q4H PRN PRN Reason: Pain, moderate (4-7) Stop: 11/27/17 11:59 Last Admin: 11/26/17 03:36 Dose: 2 tab Pantoprazole Sodium (Protonix Inj) 40 mg IVP DAILY [facility] Last Admin: 11/25/17 10:40 Dose: 40 mg - Labs Labs: 11/26/17 06:15 11/26/17 06:15 - Constitutional Appears: Well, No Acute Distress - Head Exam Head Exam: ATRAUMATIC, NORMOCEPHALIC - ENT Exam ENT Exam: Mucous Membranes Moist - Respiratory Exam Respiratory Exam: NORMAL BREATHING PATTERN - Cardiovascular Exam Cardiovascular Exam: RRR - GI/Abdominal Exam GI & Abdominal Exam: Soft, Tenderness (around midline incision ). absent: Distended, Rebound - Neurological Exam Neurological Exam: Alert, Awake, Oriented x3 - Skin Skin Exam: Dry, Warm Assessment and Plan - Assessment and Plan (Free Text) Assessment: 36M s/p Mosqueda's reversal with low pelvic anastomosis; POD# 4 Plan: - clear for DC from surgical standpoint - will remove galen drain prior to DC - f/u with Dr. Wells in 1 week for staple removal - No heavy lifting - Stool softners as needed to avoid straining - d/w Dr. Russell Tobias, PGY-3
[2017-11-26] MEDS: Enoxaparin 40 mg Syringe SC SCH (09:10)
--- NOTE | 2017-11-26 10:30 | PN ---
DATE: 11/26/2017 SUBJECTIVE: The patient is status post colostomy reversal. He is sitting out of bed to chair. He is walking better. He has still the drain in. He was told that if the drain is out, he can probably be discharged today. He is on Colace, Lovenox, Percocet, Protonix, Toradol, Tylenol and Zofran. PHYSICAL EXAMINATION VITAL SIGNS: Temperature 98.1, 78 pulse, 136/92 and 132/79 blood pressures, 18 respiratory rate, 97% O2 on room air. HEENT: Head is atraumatic and normocephalic. HEART: Regular rate. LUNGS: Decreased breath sounds, but clear. ABDOMEN: Soft, positive bowel sounds, mildly distended. It is wrapped up, status post surgery. There is a little bit later. He is more comfortable than the day before. EXTREMITIES: Trace edema. LABORATORY DATA: He has a 5.8 white count, 11.6 hemoglobin, 35.5 hematocrit with 206 platelets. Sodium 143, potassium of 3.6, BUN 9, creatinine 0.8, GFR is greater than 60, sugar is 97, calcium is 8.3, total bilirubin is 1, AST is 21, ALT is 27, alkaline phosphatase 44, total protein is 6. He did very well with a colostomy reversal. He is quite comfortable. Hopefully, he will be discharged today. He is eating better. He is passing gas. Fabio Shea DO MTDD
[2017-11-26 14:15] VITALS: BP 125/79; PULSE 61; TEMP 98.2; O2SAT 96
[2017-11-27] MEDS ORDERED: Pantoprazole 40 mg EC Tab PO SCH (07:30)
== END 2017-11-26 15:08 | disposition home or self-care (01) | DRG 334 ==
LOC: SDAINP 06:11 → EDSTATUS 07:30 → 5RNO 14:13
PROVIDERS: ADMIT Surgery; ATTEND Surgery
PROC: 0DBP0ZZ Excision of Rectum, Open Approach (ICD-10-PCS; principal; 2017-11-22 07:30)
DX: Z43.3 Encounter for attention to colostomy (principal); F17.210 Nicotine dependence, cigarettes, uncomplicated

== ENCOUNTER 2018-11-15 10:37 | Emergency (ER) | payer SELFPAY ==
[2018-11-15 10:55] VITALS: TEMP 98.2
[2018-11-15 11:10] VITALS: BMI 37.2
--- NOTE | 2018-11-15 11:38 | ED PDOC ---
Arrival/HPI - General Chief Complaint: Abdominal Pain Time Seen by Provider: 11/15/18 11:02 Historian: Patient - History of Present Illness Narrative History of Present Illness (Text): 11/15/18 11:02 Patient is a 37 year old male, with a past medical history of diverticulitis complaining of "acid reflux". Patient informs of burning in the middle of the chest last week which has since resolved. He reports that the pain is worse at night and when laying down and is typically associated with eating. Patient requests evaluation to rule out cardiac conditions and refuses medications for pain. Patient denies any history of blood clots. Denies HTN, DM, tobacco use or IV drug use. Patient denies fevers, chills, headache, dizziness, chest pain, shortness of breath, abdominal pain, nausea, vomiting, diarrhea, dysuria, hematuria, back pain, neck pain, or any other complaints. 11/15/18 15:42 Time/Duration: 1 week Quality: Burning (chest pain described as burning) Activities at Onset: Light Context: Home Past Medical History - Provider Review Nursing Documentation Reviewed: Yes Primary Care Provider: Non [facility] Provider, - Infectious Disease Hx of Infectious Diseases: None - Tetanus Immunization Tetanus Immunization: Unknown - Cardiac Hx Cardiac Disorders: No - Pulmonary Hx Respiratory Disorders: No Other/Comment: Former Smoker - Neurological Hx Neurological Disorder: No - HEENT Hx HEENT Disorder: No - Renal Hx Renal Disorder: No - Endocrine/Metabolic Hx Endocrine Disorders: No - Hematological/Oncological Hx Blood Disorders: No - Integumentary Hx Dermatological Disorder: No - Musculoskeletal/Rheumatological Hx Musculoskeletal Disorders: No Hx Falls: No - Gastrointestinal Hx Gastrointestinal Disorders: Yes Hx Colostomy: No (reversal Sx 11/22/17) Hx Diverticulitis: Yes Other/Comment: Colostomy reversal 11/22/17; Appendectomy - Genitourinary/Gynecological Hx Genitourinary Disorders: No - Psychiatric Hx Psychophysiologic Disorder: No Hx Substance Use: No - Surgical History Hx Appendectomy: Yes - Anesthesia Hx Anesthesia: Yes Hx Anesthesia Reactions: No Hx Malignant Hyperthermia: No - Suicidal Assessment Feels Threatened In Home Enviroment: No Family/Social History - Physician Review Nursing Documentation Reviewed: Yes Family/Social History: Unknown Family HX Smoking Status: Former Smoker Hx Alcohol Use: No Hx Substance Use: No Allergies/Home Meds Allergies/Adverse Reactions: Allergies No Known Allergies Allergy (Verified 11/15/18 11:13) Home Medications: Home Meds Medication Instructions Recorded Confirmed No Known Home Med 11/15/18 11/15/18 Review of Systems - Review of Systems Constitutional: absent: Fevers, Other (chills) ENT: absent: Hearing Changes, Tinnitus, TMJ Pain, Voice Changes, Sore Throat, Rhinorrhea Respiratory: absent: SOB, Cough Cardiovascular: Chest Pain (described as burning last week) Gastrointestinal: absent: Abdominal Pain, Diarrhea, Nausea, Vomiting Genitourinary Male: absent: Dysuria, Hematuria Musculoskeletal: absent: Back Pain, Neck Pain Neurological: absent: Headache, Dizziness Physical Exam Vital Signs Reviewed: Yes Vital Signs Temp Pulse Resp BP Pulse Ox 11/15/18 10:54 98.2 F 63 18 129/79 100 Temperature: Afebrile Blood Pressure: Normal Pulse: Regular Respiratory Rate: Normal Appearance: Positive for: Well-Appearing, Non-Toxic, Comfortable Pain Distress: None Mental Status: Positive for: Alert and Oriented X 3 - Systems Exam Head: Present: Atraumatic, Normocephalic Pupils: Present: PERRL Extroacular Muscles: Present: EOMI Conjunctiva: Present: Normal Mouth: Present: Moist Mucous Membranes Pharnyx: No: ERYTHEMA, EXUDATE Neck: Present: Normal Range of Motion. No: Meningeal Signs, MIDLINE TENDERNESS Respiratory/Chest: Present: Clear to Auscultation, Good Air Exchange. No: Respiratory Distress, Accessory Muscle Use Cardiovascular: Present: Regular Rate and Rhythm, Normal S1, S2. No: Murmurs Abdomen: No: Tenderness, Distention, Rebound, Guarding Upper Extremity: Present: Normal Inspection Lower Extremity: Present: Normal Inspection Neurological: Present: GCS=15, CN II-XII Intact, Gait Normal Skin: Present: Warm, Dry. No: Rashes Psychiatric: Present: Alert, Oriented x 3 Medical Decision Making ED Course and Treatment: 11/15/18 11:02 Impression: Patient is a 37 year old male, with a past medical history of diverticulitis complaining of "acid reflux". Refusing pain medication. Plan: -- EKG -- Labs -- Chest X-Ray -- Reassess and disposition Prior Visits: Notes and results from previous visits were reviewed. Progress Notes: 11/15/18 11:05 EKG shows NSR at 63 BPM. Normal Intervals. No ST / T wave changes 11/15/18 12:32 Cxray negative 11/15/18 14:08 IMPRESSION: 1. No CT evidence of pulmonary embolus. 2. No infiltrate, pleural or pericardial effusion, pneumothorax or pulmonary vascular congestion. Cardiac size is upper limits of normal. 3. 2.5 cm probable lymphocele at the right infrahilar space. No significant lymphadenopathy in the chest. 11/15/18 15:41 Patient aware of need to follow-up with GI for endoscopy for further evaluation. - RAD Interpretation Radiology Orders: 11/15/18 11:12 CHEST PORTABLE [RAD] Stat - EKG Interpretation Interpreted by ED Physician: Yes Type: 12 lead EKG - Scribe Statement The provider has reviewed the documentation as recorded by the Scribe Varun Schmidt All medical record entries made by the Scribe were at my direction and personally dictated by me. I have reviewed the chart and agree that the record a ccurately reflects my personal performance of the history, physical exam, medical decision making, and the department course for this patient. I have also personally directed, reviewed, and agree with the discharge instructions and disposition. Disposition/Present on Arrival - Present on Arrival Any Indicators Present on Arrival: No History of DVT/PE: No History of Uncontrolled Diabetes: No Urinary Catheter: No History of Decub. Ulcer: No History Surgical Site Infection Following: None - Disposition Have Diagnosis and Disposition been Completed?: Yes Diagnosis: Epigastric pain, Lymphocele Disposition: HOME/ ROUTINE Disposition Time: 14:08 Patient Plan: Discharge Condition: GOOD Discharge Instructions (ExitCare): Acid Reflux (Gastroesophageal Reflux Disease), Adult (DC), Ulcer and Gastritis Diet Additional Instructions: Follow-up with GI for further evaluation. Return to ED if condition worsens. Follow-up with PMD within 2 days. Take pepcid and maalox. Referrals: Kenney Katz MD [Staff Provider] - Follow up with primary Forms: [employer] (Iranian)
[2018-11-15 12:34] LABS: BASO # 0.02 K/mm3 (0.0-2.0); BASO % 0.5 % (0.0-3.0); EOS # 0.1 (0.0-0.7); EOS % 1.1 % (1.5-5.0); HEMOGLOBIN 14.1 g/dL (14.0-18.0); LYMPH # 1.5 (1.2-3.4); LYMPH % 34.8 % (22.0-35.0); MEAN CELL VOLUME 82.5 fl (80.0-105.0); MEAN CORPUSCULAR HEMOGLOBIN 27.1 pg (25.0-35.0); MEAN CORPUSCULAR HGB CONC 32.8 g/dl (31.0-37.0); MEAN PLATELET VOLUME 9.2 fl (7.0-11.0); MONO # 0.2 (0.1-0.6); MONO % 4.3 % (1.0-6.0); RBC 5.21 10^6/uL (3.5-6.1); RED CELL DISTRIBUTION WIDTH 13.7 % (11.5-14.5); WHITE BLOOD COUNT 4.4 10^3/uL (4.5-11.0)
--- NOTE | 2018-11-15 12:36 | RAD ---
Date of service: 11/15/2018 HISTORY: Epigastric pain COMPARISON: Comparison made with chest radiograph dated 08/07/2017 TECHNIQUE: 1 view obtained. FINDINGS: LUNGS: No active pulmonary disease. PLEURA: No significant pleural effusion identified, no pneumothorax apparent. CARDIOVASCULAR: No aortic atherosclerotic calcification present. Normal cardiac size. No pulmonary vascular congestion. OSSEOUS STRUCTURES: No significant abnormalities. VISUALIZED UPPER ABDOMEN: Normal. OTHER FINDINGS: None. IMPRESSION: No active disease.
[2018-11-15 12:40] LABS: ALB/GLOB RATIO 1.3 (1.1-1.8); ALBUMIN 3.8 g/dL (3.0-4.8); ALT/SGPT 32 U/L (7-56); AST/SGOT 26 U/L (17-59); BLOOD UREA NITROGEN 11 mg/dL (7-21); CALCIUM 8.9 mg/dL (8.4-10.5); GFR NON-AFRICAN AMERICAN > 60; LIPASE 24 U/L (23-300)
[2018-11-15] MEDS ORDERED: Iohexol 350 MG/100 ML VIAL ONE (12:48)
[2018-11-15 12:50] LABS: TROPONIN I < 0.01 ng/mL
[2018-11-15 12:56] LABS: CK-MB 1.6 ng/mL (0.0-3.6)
--- NOTE | 2018-11-15 14:09 | CT ---
Date of service: 11/15/2018 PROCEDURE: CT Chest with contrast (Pulmonary Angiogram) HISTORY: pleuritic chest pain COMPARISON: None available. TECHNIQUE: Axial computed tomography images were obtained of the chest in the pulmonary arterial phase of enhancement. Coronal and sagittal reformatted images were created and reviewed. Intravenous contrast dose: Omnipaque 350, 100 cc Radiation dose: Total exam DLP = 491.99 mGy-cm. This CT exam was performed using one or more of the following dose reduction techniques: Automated exposure control, adjustment of the mA and/or kV according to patient size, and/or use of iterative reconstruction technique. FINDINGS: PULMONARY ARTERIES: Unremarkable. No pulmonary embolism. AORTA: No acute findings. No thoracic aortic aneurysm. No aortic atherosclerotic calcification or mural plaque present. Conjoint origin brachiocephalic and left common carotid arteries, a normal variant. LUNGS: Unremarkable. No nodule, mass or pulmonary consolidation. PLEURAL SPACES: Unremarkable. No effusion or pneumothorax. HEART: Upper limits normal cardiac size. No prominent dilatation of the right ventricle or main pulmonary artery segment. No significant pericardial effusion. LYMPH NODES: No significant mediastinal lymphadenopathy as well as bilateral hilar regions. Stable small ovoid hypodensity at the right infrahilar/paraesophageal space measuring 1.4 x 2.5 cm in -2 Hounsfield units likely reflecting a small lymphocele. BONES, CHEST WALL: Unremarkable. No fracture or destructive lesion OTHER FINDINGS: Unremarkable. IMPRESSION: 1. No CT evidence of pulmonary embolus. 2. No infiltrate, pleural or pericardial effusion, pneumothorax or pulmonary vascular congestion. Cardiac size is upper limits of normal. 3. 2.5 cm probable lymphocele at the right infrahilar space. No significant lymphadenopathy in the chest.
[2018-11-15 14:59] VITALS: BP 134/77; PULSE 77; RESP 16; O2SAT 98
--- NOTE | 2018-11-15 17:39 | CARD ---
APPROVED REPORT Date of service: 11/15/2018 EKG Measurement Heart [id number] <Conclusion> Normal sinus rhythm Normal ECG
== END 2018-11-15 14:58 | disposition home or self-care (01) ==
LOC: ED 10:37
DX: R10.13 Epigastric pain (principal); I89.8 Other specified noninfective disorders of lymphatic vessels and lymph nodes; K21.9 Gastro-esophageal reflux disease without esophagitis
CPT/HCPCS: 71045; 71275; 80053; 82550; 82553; 83615; 83690; 84484; 85025; 85378; 93005; 99283; Q9967